=== PATIENT | female | born 1945 | race Caucasian/White ===

== ENCOUNTER 2016-03-21 11:39 | Inpatient (IN) | payer MEDICARE, OTHER ==
--- NOTE | ~2016-03-21 | CON ---
PATIENT'S NAME: NORMA PAEZ [facility] AGE: 70 Y [address] ROOM: [id number] [place], [place] [address] LOCATION: GICU ADMIT DATE: 03/21/2016 Consultation DISCHARGE DATE: FAMILY PHYSICIAN: OLGA ELISE MD ATTENDING PHYSICIAN: FREDI CLEMONS DATE OF CONSULTATION: 03/24/2016 REFERRING PHYSICIAN: SHARON MANTILLA REFERRING PHYSICIAN: Fredi Clemons MD REASON FOR CONSULTATION: Sepsis and sacral coccyx wound. HISTORY OF PRESENT ILLNESS: This is a 70-year-old lady with ESRD, on peritoneal dialysis, who presented with sacral wound and pain and bilateral lower extremity bullous lesions. The patient recently started on Requip and tramadol, and after that, she started to have some bilateral ankle area bullous lesion. Also, recently noted to have increased drainage and odor from the coccyx wound which has been there for several months. The patient came to the ER and admitted for further management and treatment. Culture from the wound grew Clostridium, diphtheroid, and also Peptostreptococcus, and blood culture 1/2 on March 21 positive with anaerobic gram-positive cocci. Started on broad-spectrum antibiotic and currently narrowed to IV Unasyn. ID consultation requested for antibiotic management. The patient denied any fever or chills. No cough or cough up of mucus. No chest pain. No abdominal pain. Complained of some coccyx wound pain and also both lower extremity pain too around the bullous area. It was noted that the patient had peritoneal aspiration, and white blood cell count is only 26. Culture negative. Also, some of the bullous lesions were aspirated, and culture was negative. Repeat blood culture done today has been pending. Noted the patient is still on Levophed, but only a very small dose at this point. PAST MEDICAL HISTORY: Coronary artery disease; pacemaker; atrial fibrillation; hypertension; hyperlipidemia; ESRD, on peritoneal dialysis; diabetes; and recent sacral wound. PAST SURGICAL HISTORY: Appendectomy, cholecystectomy, and pacemaker placement. SOCIAL HISTORY: Denies smoking. ALLERGIES: PATIENT'S NAME: NORMA PAEZ [facility] AGE: 70 Y [address] ROOM: [id number] [place], [place] [address] LOCATION: GICU ADMIT DATE: 03/21/2016 Consultation DISCHARGE DATE: FAMILY PHYSICIAN: OLGA ELISE MD ATTENDING PHYSICIAN: FREDI CLEMONS NO KNOWN DRUG ALLERGIES. FAMILY HISTORY: Negative for heart disease or cancer. ANTIBIOTICS: Currently, on IV Unasyn, but used to be on clindamycin, vancomycin, meropenem, and gentamicin. REVIEW OF SYSTEMS: As above. PHYSICAL EXAMINATION: VITAL SIGNS: Blood pressure 96/46, pulse rate 69, respirations 17, temperature 97.9, T-max 99.6. Still on Levophed, but very minimal amount. GENERAL: In mild distress. HEENT: Conjunctivae pink. Sclerae not icteric. NECK: Supple. RESPIRATORY: Lung sounds clear to auscultation bilaterally. HEART: Regular rhythm and rate. ABDOMEN: Bowel sounds positive. No tenderness or rebound tenderness. BACK AND EXTREMITIES: Both lower legs have several bullous lesions. Some of them were popped up and aspirated. Minimal surrounding erythema noted. Also, wound on the right coccyx area. It is about 3 to 4 cm with tunneling, but no odor. No purulence. Wound looks clean, and no bone exposed. LABORATORY DATA: White blood cells 11.7, hemoglobin 9.0, and platelet 181. Peritoneal fluid white blood cell is 26. BUN 80 and creatinine 7.2. CRP done on March 21 was 15. ESR done on March 21 was 103. On March 18, buttock culture grew Clostridium paraputrificum and also Peptostreptococcus species and diphtheroids. On March 21, blood culture, 2 sets, 1 out of 2 grew anaerobic gram-positive cocci growing. On March 23, peritoneal dialysis fluid culture negative. On March 23, right ankle bulla aspirate culture is no growth. On March 24, blood culture, one set, pending. On March 22, CT pelvis showed increased attenuation in the posterior subcutaneous tissue at the area of the inferior aspect of the sacrum and coccyx with an associated tiny gas collection. Appearance could reflect infectious or inflammatory changes in the subcutaneous tissues. Small gas collection could be also with subcutaneous infection or wound involving the skin and subcutaneous tissue. No bone erosion in the sacrum or coccyx to indicate osteomyelitis. ASSESSMENT: This is a 70-year-old lady with end-stage renal disease, on peritoneal PATIENT'S NAME: NORMA PAEZ [facility] AGE: 70 Y [address] ROOM: [address] [address] LOCATION: GICU ADMIT DATE: 03/21/2016 Consultation DISCHARGE DATE: FAMILY PHYSICIAN: OLGA ELISE MD ATTENDING PHYSICIAN: FREDI CLEMONS, who presented with acute sepsis and also coccyx wound infection and also both lower legs bullous lesions. Note the dermatology recommendation, they suspect that this might be bullous impetigo, and some of the bullae were aspirated, and aspiration culture negative. The patient is improving clinically and currently on IV Unasyn 3 g q.24 hours. Repeat blood culture ordered today and pending. Wound looks actually clean, although it is deep. No bone exposure. CT reviewed. RECOMMENDATIONS: Would like to continue IV Unasyn 3 g q.24 hours through April 06, 2016, if today's blood culture turned out negative. Okay to place PICC line if blood culture repeated today is negative on March 26, 2016, which is after 48 hours if intelligence analyst agrees. Would like to follow up with ID clinic in 2 weeks. MD DOMINIQUE HAIR/fernando /[id number] d: 03/24/16 1530 t: 03/25/16 1120, CONSULTATION REPORT
--- NOTE | ~2016-03-21 | ER ---
PATIENT'S NAME: NORMA PAEZ [facility] AGE: 70 Y [address] ROOM: [address] [address] LOCATION: [facility] ADMIT DATE: 03/21/2016 ER/Outpatient Report DISCHARGE DATE: FAMILY PHYSICIAN: OLGA ELISE MD ATTENDING PHYSICIAN: LEANDRA CLEMONS Time of Arrival: 1139 hours. Time of Evaluation: 1200 hours. IDENTIFICATION: A 70-year-old female. CHIEF COMPLAINT: Bilateral leg pain. HISTORY OF PRESENT ILLNESS: The patient checked in with bilateral leg pain. When she is brought back, she is talking about pain from a wound on her sacrum that she has had for several months that is not controlled with pain medicine and then she has some new lesions on her lower extremities with a large blistered area just above her medial malleolus on the right side and on her posterior left calf. She has had no fever, chills, although she says her temperature is elevated for her at 98. She says she normally runs 96. Her blood pressure is 97 systolic, but she states that, that is also fairly normal for her, that she runs between 95 and 100 normally. She denies chest pain. She denies lightheadedness or dizziness, but she does have some generalized weakness. Normally, she is able to get up and around on her own and ambulate. Today, she is needing assistance. CURRENT MEDICATIONS: 1. Allopurinol 300 mg daily. 2. Glimepiride 4 mg daily. 3. Metoprolol 20 mg 1/2 tab b.i.d. 4. Primidone 50 mg q.a.m. 5. Eliquis 5 mg half tablet b.i.d. 6. Atorvastatin 20 mg daily. 7. Gabapentin 300 mg at h.s. 8. Calcium 3 times a day with meals. 9. Potassium 20 mEq daily. 10. Bumex 1 mg daily. 11. Probiotic daily. 12. Colace. 13. Vitamins. 14. Ropinirole 0.25 mg t.i.d. for restless legs, just started on tramadol, just started 250 mg tabs q.12 hours. ALLERGIES: PATIENT'S NAME: NORMA PAEZ [facility] AGE: 70 Y [address] ROOM: [address] [address] LOCATION: [facility] ADMIT DATE: 03/21/2016 ER/Outpatient Report DISCHARGE DATE: FAMILY PHYSICIAN: OLGA ELISE MD ATTENDING PHYSICIAN: LEANDRA CLEMONS AND CHRISTEN. PAST MEDICAL HISTORY: MEDICAL PROBLEMS: Gout, diabetes mellitus, essential tremors, hyperlipidemia, atrial fibrillation, chronic kidney failure on peritoneal dialysis, chronic diastolic congestive heart failure, obstructive sleep apnea, coronary artery disease status post PCI of the LAD in 2009. Sick sinus syndrome status post pacemaker, which is a [employer] pacemaker. PRIOR SURGERIES: Liver biopsy, paracentesis, ovary and omental biopsy, appendectomy, cholecystectomy, colonoscopy, pacemaker, peritoneal dialysis catheter. SOCIAL HISTORY: The patient is , lives here in [place]. Tobacco use, denies. Alcohol use, denies. Drug use, denies. FAMILY HISTORY: No family history of premature coronary artery disease. ROS: All systems reviewed and negative other than what is noted in the HPI. PHYSICAL EXAMINATION: VITAL SIGNS: Weight 78.9 kg, blood pressure 97/68, pulse 70, respirations 18, temperature 97, saturations 92% on room air. When lying on her side, she had sats of 88%-89%, so was placed on O2 at 2 L per nasal cannula. HEENT: Normocephalic, atraumatic. Eyes: Pupils are equal and reactive to light and accommodation. Extraocular movements intact. Ears: TMs are translucent. Nose: Mucosa pink. No lesions. Mouth: No lesions. Pharynx benign. NECK: Supple. No lymphadenopathy. No thyromegaly. LUNGS: Clear to auscultation. HEART: Regular rate and rhythm. No murmur, rub, or gallop. ABDOMEN: Bowel sounds present. Soft, nondistended. No hepatosplenomegaly. No palpable masses. Nontender. The patient has a peritoneal dialysis catheter in her left abdomen, no surrounding erythema, nontender. SKIN: [place], warm, and dry. The patient has a large bullous lesion just above the medial malleolus on the right leg. She also has a blistered area on her right heel that is covered. She has a large bullous lesion, posterior calf, left leg. She has a wound just at the top of her gluteal fold that has an open area measuring approximately 3 mm with minimal scant serosanguineous drainage, but is foul smelling. No surrounding erythema. She does have PATIENT'S NAME: NORMA PAEZ [facility] AGE: 70 Y [address] ROOM: [id number] [place], [place] [address] LOCATION: [facility] ADMIT DATE: 03/21/2016 ER/Outpatient Report DISCHARGE DATE: FAMILY PHYSICIAN: OLGA ELISE MD ATTENDING PHYSICIAN: LEANDRA CLEMONS tenderness in this area. EXTREMITIES: 2+ edema. No calf tenderness. NEURO: The patient is alert and oriented x4. Cranial nerves 2 through 12 grossly intact. Motor strength 5/5 throughout. Sensation is intact to light touch. LABORATORY DATA AND X-RAYS: One-view chest x-ray, cardiomegaly. Left-sided pacemaker, no acute findings. Pending radiology over-read. An IV was initiated. Normal saline at 100 mL/h. The patient does not meet sepsis criteria. EKG: Paced rhythm at 69 beats per minute. Lactate 1.1. Sodium 137, potassium 4.5, chloride 95, CO2 26, BUN 82, creatinine 8, blood sugar 94. Albumin low at 2.3. Liver enzymes normal. CPK 314, CK-MB 2.7. Troponin I 0.106. CRP elevated at 15. Sedimentation rate elevated at 103, hemoglobin 10.1, hematocrit 32, and platelets 188, white count 13.6 with 83% neutrophils. Procalcitonin 0[place]98[place] [address]. IMPRESSION AND PLAN: 1. Bullous skin lesions, possibly secondary to tramadol. 2. Sacral wound with increase in pain. 3. Hypotension. The patient was given gentle fluids in the ER with improvement of her blood pressure to 107/65. Dr. Clemons was consulted, evaluated the patient in the emergency room, and planned for admission. 4. End-stage renal disease, on peritoneal dialysis. 5. Congestive heart failure with significantly elevated proBNP and increase in edema. EMERGENCY DEPARTMENT COURSE: DISPOSITION/FOLLOW-UP: 40 minutes of critical care was provided in the emergency room and the patient was taken to ICU in stable condition. The blood pressure of 104/59, heart rate of 68, sats of 96% on 2 L per nasal cannula. Normal saline at 100 mL/h and the patient had received Levaquin at 750 mg IV. Blood cultures have been drawn and those results are pending. Urine was not obtained as since yesterday she has not been making any urine. MARY RODRIGUEZ MD CAR/modl PATIENT'S NAME: NORMA PAEZ [facility] AGE: 70 Y [address] ROOM: [place] [address] LOCATION: [facility] ADMIT DATE: 03/21/2016 ER/Outpatient Report DISCHARGE DATE: FAMILY PHYSICIAN: OLGA ELISE MD ATTENDING PHYSICIAN: LEANDRA CLEMONS /[id number] d: 03/21/169 t: 03/22/16 0740, OUTPATIENT REPORT
--- NOTE | ~2016-03-21 | HP ---
PATIENT'S NAME: NORMA PAEZ [facility] AGE: 70 Y [address] ROOM: [address] [address] LOCATION: [facility] ADMIT DATE: 03/21/2016 History & Physical DISCHARGE DATE: FAMILY PHYSICIAN: OLGA ELISE MD ATTENDING PHYSICIAN: LEANDRA CLEMONS PRIMARY CARE PHYSICIAN: Dr. Elise. CHIEF COMPLAINT: Bilateral lower extremity bullae lesions and pain, sacral wound and pain. HISTORY OF PRESENT ILLNESS: This is a 70-year-old female with a history of end-stage renal disease, on peritoneal dialysis. The patient states that around the end of December, she was at an event and tried to sit. She then developed a sacral wound by something that hit her in her back. The patient has been following up with the wound care over the past couple of months. The patient's states that the patient has had some drainage from the sacral wound for the past few days that is also increasingly foul smelling now. The patient is able to ambulate. Currently, she states she undergoes peritoneal dialysis currently for end-stage renal disease. She complains of increasing pain in her buttocks around the sacral area. Currently, rates her pain as 7-10 on intensity. She was seen for an increasing pain by her primary care physician. Dr. Elise placed her on Requip and also on tramadol. She just had a couple of doses of tramadol and Requip and now has bullae lesions on her bilateral lower extremity around her ankles. This is likely secondary to tramadol use. The patient also complains of pain in her bilateral lower extremity. Denies seeing any other lesions at this point of time. At the time of my examination in the ER, the patient denies any chest pain or shortness of breath. Denies any head trauma or loss of consciousness. Denies headache. No fever history reported. She complains of pain in her sacral area and bilateral lower extremity. No other pain reported. No abdominal pain, diarrhea, or constipation reported. She has been undergoing her peritoneal dialysis regularly at home. Denies any other complaints at this point of time. REVIEW OF SYSTEMS: A 10-point review of systems done and was otherwise negative except as mentioned above. FAMILY HISTORY: No history of heart disease or cancer reported. PAST SURGICAL HISTORY: 1. Appendectomy. PATIENT'S NAME: PHILIPPE, NORMA [facility] AGE: 70 Y [address] ROOM: [place] [address] LOCATION: GICU ADMIT DATE: 03/21/2016 History & Physical DISCHARGE DATE: FAMILY PHYSICIAN: OLGA ELISE MD ATTENDING PHYSICIAN: LEANDRA CLEMONS 2. Cholecystectomy. 3. Pacemaker placement. 4. Heart catheterization with stent in 2009. 5. Right wrist surgery. 6. Cataract surgery. 7. Tunneled dialysis catheter. 8. Recent peritoneal dialysis catheter. PAST MEDICAL HISTORY: 1. Coronary artery disease, status post stent. 2. CHF. 3. Pacemaker placement. 4. Atrial fibrillation. 5. Long-term anticoagulation. 6. Dyslipidemia. 7. Hypertension. 8. Obstructive sleep apnea. 9. Grade 3 diastolic dysfunction. 10. Pulmonary hypertension. 11. History of pancreatitis secondary to diabetes mellitus medication. 12. Diabetes mellitus. 13. Sacral wound recently. 14. End-stage renal disease, on peritoneal dialysis. 15. Depression and anxiety. 16. Restless legs syndrome. HOME MEDICATIONS: Per MAR. SOCIAL HISTORY: Denies smoking or alcohol use. She currently lives at home with her . ALLERGIES: NONE REPORTED. PRADAXA AND JANUVIA. PHYSICAL EXAMINATION: VITAL SIGNS: Temperature 97.0, pulse 70 and regular, respirations 18, blood pressure 97/68, and saturation 92% on room air. GENERAL: The patient is alert and oriented x3. Answers all questions appropriately. In no acute distress. HEENT: Head: Normocephalic, atraumatic. Pupils equal, round, reactive to light. Extraocular muscles intact. Nares clear. Throat clear. Mucous membranes dry. NECK: Supple. No nuchal rigidity. HEART: Regular rate and rhythm. PATIENT'S NAME: NORMA PAEZ [facility] AGE: 70 Y [address] ROOM: [place] [address] LOCATION: GICU ADMIT DATE: 03/21/2016 History & Physical DISCHARGE DATE: FAMILY PHYSICIAN: OLGA ELISE MD ATTENDING PHYSICIAN: LEANDRA CLEMONS LUNGS: Clear to auscultation bilaterally. ABDOMEN: Soft, nontender, and nondistended. Bowel sounds are present. PD catheter noted. Area around the PD catheter appears clean with no redness noted. EXTREMITIES: No clubbing, cyanosis, or edema noted. The patient has 2 bullae- like lesions that measure approximately 5 x 5 cm on the right and 3 x 5 cm on the left. The bullae appeared to be fluid filled. No drainage noted. No breaking noted. The area around the bullae appears to be slightly red. These are around the ankles and the lower part of the leg. Only 2 lesions noted currently. Vascular pulses 2+ distally bilaterally. NEUROLOGIC: The patient is alert and oriented x3. Cranial nerves 2 through 12 are grossly intact. Follows all commands. Moves all extremities. Gait not assessed. SKIN: As noted above. Also noted on the skin in the sacral area is a pinpoint lesion that appears to be draining a slightly red area noted in between the gluteal fold. At the top of the gluteal fold, no pus noted. DIAGNOSTIC STUDIES: Lactate 1.1. CPK 314, troponin I 0.106, proBNP 08999. CBC showed a white count of 13.6, hemoglobin 10.2, hematocrit 32.0, and platelets 188. CMP showed sodium 137, potassium 4.5, chloride 95, bicarb 26, BUN 82, creatinine 8.2, glucose 94, calcium 9.1, total protein 7.2, albumin 2.3. AST 93, ALT 86. Alkaline phosphatase 181, total bilirubin 0.4, anion gap 20.5, globulin 4.9. GFR 5. ESR 103. PT 11.2, INR 1.1, PTT 32. CK-MB 2.7. CRP 15.0. Procalcitonin level 0.98. Chest x-ray showed no acute cardiopulmonary abnormality, improved cardiomegaly and changes of pulmonary venous hypertension. Suspect small bilateral pleural effusions probably unchanged, left-sided pacemaker stable. Blood cultures are drawn and are pending at this point of time. ASSESSMENT AND PLAN: A 70-year-old female presenting with sacral ulcer. 1. Sacral ulcer. The area appears to be suspicious to be the cause of sepsis. The patient has increased pain in the area with some drainage. A [facility] consult will be obtained for the patient. I will place her on broad-spectrum antibiotics. Currently, we will obtain blood cultures and tailor antibiotics once cultures are obtained. 2. Bullous lesions on bilateral lower extremities. The patient has two bullous lesions around her ankle in bilateral lower extremities. They are painful but not draining currently. We will observe very closely. Highly suspicious for Cooper-Sb syndrome versus toxic epidermal necrolysis if the lesions spread. I will place her on antibiotics currently. We will consider steroids if the lesions spread. Benadryl to be given. Discontinue Requip and tramadol, likely secondary to tramadol. 3. End-stage renal disease, on peritoneal dialysis. The patient will PATIENT'S NAME: NORMA PAEZ [facility] AGE: 70 Y [address] ROOM: [address] [address] LOCATION: [facility] ADMIT DATE: 03/21/2016 History & Physical DISCHARGE DATE: FAMILY PHYSICIAN: OLGA ELISE MD ATTENDING PHYSICIAN: LEANDRA CLEMONS undergo peritoneal dialysis per Renal recommendations. 4. Severe sepsis. Concern for severe sepsis. The patient will be placed on antibiotics. She will be placed in the ICU. Her blood pressure is slightly on the lower side. I will hydrate with IV fluids currently. We will initiate pressor therapy if her MAP is less than 65. 5. Diabetes mellitus. Sliding scale insulin for now. 6. Atrial fibrillation status post permanent pacemaker, currently rate controlled. 7. Long-term anticoagulation. The patient reports she is on Eliquis. Continue Eliquis as per home regimen. 8. Deep vein thrombosis prophylaxis. The patient is on long-term anticoagulation. 9. History of coronary artery disease status post stent, stable. 10. Hypertension. The patient is currently hypotensive. Hold blood pressure medication. 11. Dyslipidemia. Continue statin. 12. Code status. Full code. Discussed with the patient at time of admission. 13. Obstructive sleep apnea, on CPAP. Continue per home regimen. 14. Pulmonary hypertension history. LEANDRA CLEMONS MD MT/hoal /[id number] D: 052 T: 216 HISTORY & PHYSICAL
--- NOTE | ~2016-03-21 | CON ---
PATIENT'S NAME: NORMA PAEZ [facility] AGE: 70 Y [address] ROOM: [id number] [place], [place] [address] LOCATION: GICU ADMIT DATE: 03/21/2016 Consultation DISCHARGE DATE: FAMILY PHYSICIAN: OLGA ELISE MD ATTENDING PHYSICIAN: LEANDRA CLEMONS DATE OF CONSULTATION: 03/22/2016 REFERRING PHYSICIAN: SHARON MANTILLA REASON FOR CONSULTATION: End-stage renal disease, on peritoneal dialysis. HISTORY OF PRESENT ILLNESS: A 70-year-old female with history of end-stage renal disease, currently on peritoneal dialysis, admitted with possible sepsis secondary to sacral decubitus. Nephrologic consult has been called for management of chronic dialysis. Primary disease is known to be vascular disease versus cardiorenal syndrome type 2. She had a long history of congestive heart failure with multiple admissions with decompensated heart failure, being managed with IV diuretic. In October 2015, she had her peritoneal dialysis catheter placed and subsequently was started on peritoneal dialysis. Her peritoneal dialysis regime currently at this point is 4 cycles over 8 hours with 2 L of dwell volume with no last fill. She generally uses a mixture of 2.5 and 4.25% dextrose solution to get good ultrafiltrate. The patient's stays with her, and he is the primary caregiver; however, recently, he has noticed that the patient has some drainage from the sacral wound which is becoming increasingly foul smelling. The patient is able to ambulate; however, with that significant pain, the patient is not able to tolerate and can walk. Currently, she rates her pain at 7/10 in intensity, mostly in the buttock and in the sacral area. She was recently started on tramadol by her primary care provider which, after a few days, she has noticed some blisters in the bilateral lower extremities around the ankle region. She denied any other rash. No itching. When she arrived in the ER, she had a marginally low blood pressure with systolic being in the 80 to 90 range. She was transferred to ICU with gentle intravascular volume expansion, and the blood pressure at this time is in the 130 range; however, she still appears to be slightly on her dry side with dry mucous membranes, flat JVD, and an absence of any dependent edema. REVIEW OF SYSTEMS: GENERAL: Complains of occasional fever, chills, and rigor. HEENT: No sore throat. No sinus congestion. CARDIOVASCULAR: No chest pain. No exertional shortness of breath. No leg swelling. RESPIRATORY: No shortness of breath. No cough. No wheezing. PATIENT'S NAME: NORMA PAEZ [facility] AGE: 70 Y [address] ROOM: [place] [id number] LOCATION: GICU ADMIT DATE: 03/21/2016 Consultation DISCHARGE DATE: FAMILY PHYSICIAN: OLGA ELISE MD ATTENDING PHYSICIAN: LEANDRA CLEMONS GENITOURINARY: No pain with urination or increased frequency or nocturia. GASTROINTESTINAL: No abdominal pain. No abdominal distention. No nausea or vomiting. NEUROLOGIC: No weakness or seizures. SKIN: No rash. No itching. However, as described above, the patient has a significant sacral wound which is foul smelling and draining. The patient also has some blisters around the ankle area after she was started on tramadol. ALLERGIC: No seasonal allergy. No hay fever. ENDOCRINE: No heat or cold intolerance. PSYCHIATRIC: No sadness. No crying spells. No history of panic attacks. PAST MEDICAL HISTORY: 1. 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 2. Coronary artery disease, status post stenting. 3. Diastolic heart failure. 4. Status post permanent pacemaker implantation. 5. Atrial fibrillation. 6. Long-term anticoagulation. 7. Dyslipidemia. 8. Hypertension. 9. Obstructive sleep apnea. 10. Pulmonary hypertension. 11. History of pancreatitis secondary to diabetes mellitus medications. 12. Recent sacral wound. 13. Depression and anxiety. 14. Restless legs syndrome, currently on Requip. PAST SURGICAL HISTORY: 1. Appendectomy. 2. Cholecystectomy. 3. Pacemaker placement. 4. Cardiac catheterization with stenting in 2009. 5. Right wrist surgery. 6. Cataract surgery. 7. Tunneled dialysis catheter placement. 8. Recent peritoneal dialysis catheter placement in October 2015. FAMILY HISTORY: No history of CKD or coronary artery disease in the family. No history of cancer. SOCIAL HISTORY: Denies any smoking, alcohol, or IV drug use. She currently lives at home with her . PATIENT'S NAME: NORMA PAEZ [facility] AGE: 70 Y [address] ROOM: [address] [address] LOCATION: [facility] ADMIT DATE: 03/21/2016 Consultation DISCHARGE DATE: FAMILY PHYSICIAN: OLGA ELISE MD ATTENDING PHYSICIAN: LEANDRA CLEMONS ALLERGIES: NONE REPORTED; HOWEVER, THE PATIENT WAS ON PRADAXA AND JANUVIA WHICH CAUSED SOME SIGNIFICANT SYMPTOMS. THE PATIENT WAS ALSO STARTED ON TRAMADOL EARLIER RESULTING IN SOME BLISTERS ON THE BILATERAL ANKLES. PHYSICAL EXAMINATION: VITAL SIGNS: Blood pressure 132/76, pulse 70 and irregular, temperature 97, respiratory rate 18, saturation 93% to 95% on room air. GENERAL: Elderly lady, lying in bed, in no apparent distress. HEAD: Dry mucous membranes. Bilateral PERRLA, EOMI. NECK: Flat JVP. No thyromegaly. No lymphadenopathy. CARDIOVASCULAR: S1 and S2 normal, regular. No murmur, rub, or gallop. CHEST: Bilateral air entry equal. No wheeze or rales. ABDOMEN: Soft, nontender, and nondistended. Bowel sounds present. EXTREMITIES: No cyanosis or clubbing. No dependent edema. There is a sacral area covered with bandage. Sacral decubitus wound. MUSCULOSKELETAL: Pain while walking which she rates about 7/10 in intensity. SKIN: No pallor. No cyanosis. No icterus. However, the patient has sacral edema which has been as described above. CENTRAL NERVOUS SYSTEM: Alert and oriented x3. No gross focal neurological deficit. DIAGNOSTIC STUDIES: Lactate 1.2. CPK 314. Troponin 0.106. CBC: WBC 10.4, hemoglobin 9.3, hematocrit 29.6, and platelets 162. Chemistry: Sodium 141, potassium 4.5, chloride 102, bicarbonate 31, BUN 97, creatinine 8.3, glucose 47, and calcium 8.3. Total protein and albumin of 10.8 and 2.3. ASSESSMENT AND PLAN: 1. End-stage renal disease, on peritoneal dialysis. Primary disease vascular disease versus CRS type 2. Started on peritoneal dialysis since October 2015. Tolerating peritoneal dialysis well. The patient is being taken care of by her . Currently undergoing 4 cycles over 8 hours with a mixture of 2.5 and 4.25% dextrose solution. We will continue his home regimen except we will change the fluid to all 2.5% to decrease the ultrafiltrate, especially in the context of sepsis with hypotension. 2. Severe sepsis secondary to sacral ulcer with significantly increased pain with some drainage, currently on broad-spectrum antibiotic, and blood cultures are pending. 3. Bullous lesions on the bilateral lower extremities, possibly secondary to tramadol. Currently, not draining. Please discontinue the medications, and we will closely monitor. 4. Diabetes mellitus, on sliding scale insulin. 5. Atrial fibrillation, status post permanent pacemaker implantation. PATIENT'S NAME: NORMA PAEZ [facility] AGE: 70 Y [address] ROOM: [id number] [place], [place] [address] LOCATION: [facility] ADMIT DATE: 03/21/2016 Consultation DISCHARGE DATE: FAMILY PHYSICIAN: OLGA ELISE MD ATTENDING PHYSICIAN: LEANDRA CLEMONS Currently, rate controlled. 6. Long-term anticoagulation. Currently, on Eliquis. 7. Deep venous thrombosis, on long-term anticoagulation. 8. Coronary artery disease, status post stenting; stable. 9. Hypertension. Currently, hypotensive. Hold blood pressure medications for now. Thank you for allowing me to participate in this patient's care. We will closely monitor the patient's progress along with you. SHARON MANTILLA MD /modl /[id number] d: 03/22/16 1633 t: 03/30/16 163, CONSULTATION REPORT
--- NOTE | ~2016-03-21 | DS ---
PATIENT'S NAME: NORMA PAEZ [facility] AGE: 70 Y [address] ROOM: [id number] [place], [place] [address] LOCATION: GPCU ADMIT DATE: 03/21/2016 Discharge Summary DISCHARGE DATE: 03/30/2016 FAMILY PHYSICIAN: Julio Cesar MD ATTENDING PHYSICIAN: Fredi Garcia PRINCIPAL DIAGNOSES: 1. Septic shock secondary to gram-positive bacteremia. 2. Sacral decubitus ulcer. 3. Lower extremity bullous lesions. 4. End-stage renal disease, on peritoneal dialysis. 5. Coronary artery disease, atrial fibrillation, status post pacemaker. 6. Diabetes. BRIEF HOSPITAL COURSE: This is a 70-year-old lady with history of end-stage renal disease, on peritoneal dialysis, who presented with a sacral wound and pain in the bilateral lower extremities with bullous erosions and lesions and was admitted for septic shock and subsequently had grown a gram-positive organism of Peptostreptococcus species. The patient was treated with IV Unasyn, dose adjusted renally. During hospitalization, she was treated for septic shock overall and had a brief ICU stay, and after she did better was transferred over to the floor, and the patient continues to do well right now. The focus now is to continue her antibiotic course and Streptococcus species tends to be pansensitive to penicillins as well as clindamycin. ID consultation was obtained as well, and they have recommended to continue Unasyn initially. At this point, since the patient has done very well on current regimen, I will discharge the patient on some more days of oral clindamycin, and she is to follow up with primary care physician as well as Wound Care and ID within the next 1 to 2 weeks and clear instructions have been given. DISCHARGE PHYSICAL EXAMINATION: GENERAL: The patient today is awake, alert, and oriented x3, good spirit. CHEST: Clear to auscultation bilaterally. HEART: S1, S2. Regular rate and rhythm. ABDOMEN: Soft, nontender, and nondistended. SKIN: Healing bilateral lower extremity bullous lesions and also sacral ulcer with a clean base and good granulation tissue around it. DISPOSITION: The patient is being discharged in stable condition to home and is to continue to give care to patient and he seems to be doing a good job with that. The patient will be discharged home and will follow up with PCP in 1 to 2 weeks. Greater than 30 minutes were spent in discharge planning. PATIENT'S NAME: NORMA PAEZ [facility] AGE: 70 Y [address] ROOM: [id number] [place], [place] [address] LOCATION: [facility] ADMIT DATE: 03/21/2016 Discharge Summary DISCHARGE DATE: 03/30/2016 FAMILY PHYSICIAN: Julio Cesar MD ATTENDING PHYSICIAN: Fredi Garcia JACIELOT MD MCKAY TAI/fernando /[id number] d: 03/31/16 0235 t: 03/31/16 1726, DISCHARGE SUMMARY
[~2016-03-21 11:39] MED LIST: AMARYL4 M1 PO; AMARYL4 MG PO; ASPIRIN LO-DOSE81 MG PO; ATORVASTATIN CA20 MG PO; B COMPLETE1 EACH PO; BENADRYL A12.5 MG/5 PO; BUMETANIDE2 MG PO; BUMEX1 MG IV; BUMEX1 MG PO; Bumex IVP; COLACE100 MG PO; CPAP INH; DEMADEX20 M1 PO; ELIQUIS5 MG PO; FLORASTOR250 MG PO; K-TAB ER20 MEQ PO; LIDOCAINE IDER; LIPITOR20 M1 PO; LISINOPRIL2.5 MG PO; LOPRESSOR12.5 MG/0. PO; LOPRESSOR25 MG PO; MIRALAX17 GM PO; MYSOLINE50 MG PO; NEURONTIN300 MG PO; NORCO 5-325 MG1 TAB PO; NORVASC10 MG PO; PAXIL20 MG PO; PERCOCET 5-3251 EACH PO; PHOSLO667 MG PO; PREMARIN VAG30 GM VAG; PROBIOTIC1 EAC1 PO; PROTONIX20 MG PO; THERA-VITE W/ B1 TAB PO; TYLENOL EXTRA500 MG PO; TYLENOL325 MG PO; ZAROXOLYN5 MG PO; ZESTRIL2.5 MG PO; ZOFRAN4 MG PO; ZYLOPRIM PO; ZYLOPRIM300 MG PO
[2016-03-21 12:38] LABS: BASOPHIL % 0.2 %; EOSINOPHIL # 0.1 K/uL (0.0-0.5); HEMOGLOBIN 10.1 g/dL (10.0-15.0); IMMATURE GRANULOCYTE # 0.1 K/uL (0.0-0.3); IMMATURE GRANULOCYTE % 0.4 %; LYMPHOCYTE # 1.1 K/uL (0.8-4.0); LYMPHOCYTE % 7.7 %; MCH 30.9 pg (27.0-34.0); MCHC 31.6 gm/dL (32.0-36.5); MCV 97.9 fl (83.0-98.0); MPV 11.3 fl (9.4-12.4); NEUTROPHIL # (ANC) 11.4 K/uL (1.8-7.8); NEUTROPHIL % 83.7 %; NRBC % 0 /100WBC (0-0.00); PLATELET COUNT 188 K/uL (150-450); RBC 3.27 M/uL (3.50-5.50); RDW-CV 16.4 % (11.9-14.6); WBC 13.6 K/uL (4.0-11.0)
[2016-03-21 12:47] LABS: INR - (THERAPEUTIC) 1.1 (0.9-1.1); PROTIME 11.2 SECONDS (9.6-11.1); PTT 32 SECONDS (25-32)
[2016-03-21 12:59] LABS: ALBUMIN 2.3 gm/dL (3.5-5.0); ANION GAP 20.5 (10.0-19.0); CALCIUM 9.1 mg/dL (8.5-10.5); POTASSIUM 4.5 mMol/L (3.7-5.1); TOTAL BILIRUBIN 0.4 mg/dL (0.0-1.5); TOTAL PROTEIN 7.2 g/dL (6.0-8.4)
[2016-03-21] MEDS ORDERED: ROPINIROLE HC0.25 MG PO (15:47)
[2016-03-21] MEDS ORDERED: ULTRAM50 MG PO (15:47)
--- NOTE | 2016-03-21 16:22 | NUR ---
Significant Event: Alert and oriented x3. Follows commands. Moves all extremities. PERRLA. Pacemaker. Generalized edema. Afebrile. Levaquin, Zosyn, Daptomycin started. 1L NC. Blister to BIlateral lower extremities intact. Pressure ulcer to coccyx WOC following patient. R) hand and L) AC Iv infusing Antibiotics and NS. Peritoneal dialysis catheter intact, oliguria. Family at bedside. AC/Hs accuchecks. Follow up: monitor.
--- NOTE | 2016-03-21 22:14 | NUR ---
Significant Event: Neurologically intact. VSS. 1L NC. Clear and dim. Hypoactive. No BM. Has not voided. 3x blisters still intact to lower extremities. Handed off to Sugey FERGUSON at 2200 Follow up: Monitor BP
--- NOTE | 2016-03-22 05:44 | NUR ---
Significant Event: AOx3. Afib, paced, BP stable SBP within goal of >90. Afebrile, edema noted. Currently on CPAP with 2L o2. Lung sounds clear and diminished throughout. Bowel sounds present, patient states decreased appetite, no bm this shift. No UOP this shift MDs aware, patient receives peritoneal dialysis for end stage renal disease. No new blister formations. Follow up: Transfer. Notify MD for new blister formation.
[2016-03-22 06:08] LABS: BASOPHIL % 0.3 %; EOSINOPHIL # 0.1 K/uL (0.0-0.5); EOSINOPHIL % 1.1 %; HEMATOCRIT 29.6 % (33.0-46.0); HEMOGLOBIN 9.3 g/dL (10.0-15.0); IMMATURE GRANULOCYTE # 0.1 K/uL (0.0-0.3); IMMATURE GRANULOCYTE % 0.5 %; LYMPHOCYTE # 0.9 K/uL (0.8-4.0); LYMPHOCYTE % 8.4 %; MCH 30.9 pg (27.0-34.0); MCHC 31.4 gm/dL (32.0-36.5); MCV 98.3 fl (83.0-98.0); MONOCYTE # 0.8 K/uL (0.0-1.0); MONOCYTE % 7.2 %; MPV 11.2 fl (9.4-12.4); NEUTROPHIL # (ANC) 8.7 K/uL (1.8-7.8); NEUTROPHIL % 82.5 %; NRBC % 0 /100WBC (0-0.00); PLATELET COUNT 162 K/uL (150-450); RBC 3.01 M/uL (3.50-5.50); RDW-CV 16.1 % (11.9-14.6); WBC 10.5 K/uL (4.0-11.0)
[2016-03-22 06:24] LABS: ANION GAP 22.5 (10.0-19.0); CALCIUM 8.3 mg/dL (8.5-10.5)
[2016-03-22 06:25] LABS: CREATININE 8.3 mg/dL (0.5-1.1); POTASSIUM 4.5 mMol/L (3.7-5.1)
[2016-03-22] MEDS ORDERED: PHOSLO667 MG PO (11:38)
[2016-03-22] MEDS ORDERED: TRIPHROCAPS SOFT1 MG PO (11:38)
--- NOTE | 2016-03-22 16:02 | NUR ---
PT FOLLOWS A RENAL DIET AT HOME.
--- NOTE | 2016-03-22 18:37 | NUR ---
Significant Event:A/O X 3. Ambulates with 1 assist, and gait belt, up to BSC and chair. [facility] [place] Pacer with HR in the 70's. Copy of pacer card in the chart. SBP 90's to 110's. O2 sats > 90% while awake but desats when sleeping, using cpap when napping or sleeping, has own in the room. Poor appetite, eats applesauce and glucerna. Blood sugar at 0700 was 63, treated with D50. 1100 BS was 73 and 1700 BS was 83. Encouraged to eat or at least complete a can of Glucerna now and 1 more at bedtime. NO BM this stay. "I feel so bloated. I haven't urinated since 03/20/16. Can we do something about it?" Bladder scanned for > 492ml. Order to straight cath, 500 ml out. [id number] large amount of white pasty vaginal discharge. New order for PO Diflucan. [facility] nurse here to assess, blisters on legs and sacrum. DRessing to scarum changed and tunneling noted by WO nurse. CT of pelvis completed. Do NOt put up in chair for moren than 2 hours, turn side to side q2h. Do NOT open blisters. Follow up:
--- NOTE | 2016-03-22 19:15 | NUR ---
Patient is A&O X3, follows all commands. BP have been stable. Patient is a 1-2 assist.
--- NOTE | 2016-03-23 04:20 | NUR ---
Significant Event: Patienty a/o. Paced. VSS. RA. CPAP at [facility]. No voids. Peritoneal dialysis overnight. Mod BM x1. Blisters to LEs remain intact. Changed dressing to coccyx. Fentanyl 50 mcg and tylenol 650 mg given x2 for pain with relief. Blood glucose 149 at 2100. Follow up: Continue
[2016-03-23 06:02] LABS: BASOPHIL % 0.3 %; EOSINOPHIL # 0.3 K/uL (0.0-0.5); EOSINOPHIL % 2.5 %; HEMATOCRIT 28.4 % (33.0-46.0); IMMATURE GRANULOCYTE # 0.1 K/uL (0.0-0.3); IMMATURE GRANULOCYTE % 0.5 %; LYMPHOCYTE # 0.5 K/uL (0.8-4.0); LYMPHOCYTE % 4.6 %; MCH 31.1 pg (27.0-34.0); MCHC 31.7 gm/dL (32.0-36.5); MCV 98.3 fl (83.0-98.0); MONOCYTE # 0.6 K/uL (0.0-1.0); MONOCYTE % 4.9 %; NEUTROPHIL # (ANC) 10.2 K/uL (1.8-7.8); NEUTROPHIL % 87.2 %; NRBC % 0 /100WBC (0-0.00); PLATELET COUNT 181 K/uL (150-450); RBC 2.89 M/uL (3.50-5.50); RDW-CV 16.6 % (11.9-14.6); WBC 11.7 K/uL (4.0-11.0)
[2016-03-23 06:13] LABS: ANION GAP 19.6 (10.0-19.0); CALCIUM 8.3 mg/dL (8.5-10.5); CREATININE 7.2 mg/dL (0.5-1.1); MAGNESIUM 2.3 mg/dL (1.3-2.6); POTASSIUM 4.6 mMol/L (3.7-5.1)
[2016-03-23 08:14] LABS: PERITONEAL FLUID TURBIDITY CLEAR (CLEAR)
[2016-03-23 09:42] LABS: % PERITONEAL FLUID MONO/MACRO 45 % (0-0); % PERITONEAL FLUID NEUT 39 % (0-25)
--- NOTE | 2016-03-23 17:21 | NUR ---
Significant Event: PATIENT IS ALERT, ASSISTS WITH CARES. PACED RYTHM. LEVOPHED OFF AT THIS TIME, GOAL TO KEEP MAP >65. LIQUID BM ON SHIFT, WILL REPORT TO MD. WITT INSERTED FOR URINARY RETENTION. 75ML OF UOP, YELLOW, SEDIMENT. AND CONSULTED ON SHIFT. BLISTERS ASPIRATED BY AND DRAINED. COVERED WITH DRESSINGS. PAIN ON SHIFT, REPOSITIONED, DILAUDED GIVEN IVP X1 AND TYLENOL X1. PIV X2. ABX CHANGED ON SHIFT, MERREM, VANCO AND CLINDAMYCIN STARTED ON SHIFT. INFECTIOUS DISEASE CONSULTED. Follow up: CONTINUE CARE. MONITOR FOR CHANGES.CULTURES SENT OF FLUID FROM BLISTERS.
--- NOTE | 2016-03-24 03:32 | NUR ---
Significant Event: Patient a/o. Paced. Levo 0.02 mcg/kg/min on from 2220 to 0330. Max temp 99.6. Tylenol 650mg given x1. 1L NC during day. CPAP at night. Clear and dim. Rosales drained 28 ml yellow urine with sediment. Dressings to LE blisters and coccyx clean/dry/intact. Poor appetite. Blood glucose at 2100 was 180. MD order not to treat due to poor intake. Percocet 1 tab gievn x1 for pain with relief. Follow up: Monitor BPs
[2016-03-24 14:17] LABS: BASOPHIL % 0.2 %; EOSINOPHIL # 0.3 K/uL (0.0-0.5); EOSINOPHIL % 2.3 %; HEMATOCRIT 26.6 % (33.0-46.0); HEMOGLOBIN 8.4 g/dL (10.0-15.0); IMMATURE GRANULOCYTE # 0.1 K/uL (0.0-0.3); IMMATURE GRANULOCYTE % 0.5 %; LYMPHOCYTE # 0.8 K/uL (0.8-4.0); LYMPHOCYTE % 7.1 %; MCH 31.1 pg (27.0-34.0); MCHC 31.6 gm/dL (32.0-36.5); MCV 98.5 fl (83.0-98.0); MONOCYTE # 0.6 K/uL (0.0-1.0); MONOCYTE % 5.7 %; MPV 10.9 fl (9.4-12.4); NEUTROPHIL # (ANC) 9.3 K/uL (1.8-7.8); NEUTROPHIL % 84.2 %; NRBC % 0 /100WBC (0-0.00); PLATELET COUNT 167 K/uL (150-450); RDW-CV 16.9 % (11.9-14.6); WBC 11.1 K/uL (4.0-11.0)
[2016-03-24 14:30] LABS: ALBUMIN 2.6 gm/dL (3.5-5.0); CALCIUM 8.6 mg/dL (8.5-10.5); TOTAL BILIRUBIN 0.4 mg/dL (0.0-1.5); TOTAL PROTEIN 6.3 g/dL (6.0-8.4)
[2016-03-24 14:35] LABS: CREATININE 7.1 mg/dL (0.5-1.1)
--- NOTE | 2016-03-24 17:08 | NUR ---
Significant Event: PATIENT IS ALERT AND ORIENTED X3. PT REPORTS FEELING BETTER THAN YESTERDAY.PACED RYTHM. LEVOPHED OFF SINCE 1430 ON SHIFT. GOAL TO KEEP MAP >65 WITH GTT. PT ON 1L/NC. CPAP AT NOC. PT ATTEMPTED TO EAT MORE TODAY, STILL POOR APPETITE. WITT TO DD, 72 ML OF UOP ON SHIFT. PIV X2, NO COMPLICATIONS. NS @ 75ML/HR. UNASYN ORDERED TODAY. CLINDAMYCIN, MERREM, AND VANCO DC'D. Follow up: CONTINUE CARE. ENCOURAGE MOVEMENT AND PO INTAKE.
--- NOTE | 2016-03-25 05:06 | NUR ---
A/Ox3. Afebrile. Paced rhythm at 69 bpm. Levo 0.01-0.02 to keep MAPs >65, currently off after receiving scheduled albumin. CPAP worn tonight, otherwise patient on 2L NC. No BM this shift. Currently running peritoneal dialysis. Very low UOP. Follow up: Continue to wean Levo.
[2016-03-25 06:02] LABS: BASOPHIL % 0.2 %; EOSINOPHIL # 0.4 K/uL (0.0-0.5); EOSINOPHIL % 3.7 %; HEMATOCRIT 25.9 % (33.0-46.0); HEMOGLOBIN 8.2 g/dL (10.0-15.0); IMMATURE GRANULOCYTE # 0.1 K/uL (0.0-0.3); IMMATURE GRANULOCYTE % 0.5 %; LYMPHOCYTE # 0.8 K/uL (0.8-4.0); LYMPHOCYTE % 8.3 %; MCH 30.9 pg (27.0-34.0); MCHC 31.7 gm/dL (32.0-36.5); MCV 97.7 fl (83.0-98.0); MONOCYTE # 0.6 K/uL (0.0-1.0); MONOCYTE % 6.2 %; MPV 10.9 fl (9.4-12.4); NEUTROPHIL # (ANC) 7.9 K/uL (1.8-7.8); NEUTROPHIL % 81.1 %; NRBC % 0 /100WBC (0-0.00); PLATELET COUNT 160 K/uL (150-450); RBC 2.65 M/uL (3.50-5.50); RDW-CV 16.5 % (11.9-14.6); WBC 9.7 K/uL (4.0-11.0)
[2016-03-25 06:20] LABS: ANION GAP 20.6 (10.0-19.0); CALCIUM 8.5 mg/dL (8.5-10.5); POTASSIUM 4.6 mMol/L (3.7-5.1)
[2016-03-25 06:40] LABS: CREATININE 6.8 mg/dL (0.5-1.1)
--- NOTE | 2016-03-25 13:42 | NUR ---
A - NUT F/U. ON PERITONEAL DIALYSIS. SACRAL WOUND W/ INCREASED DRAINAGE. BILAT LE WOUNDS. APPETITE POOR. 2+ EDEMA. LABS: ACCUCHECK WNL-REAS, GLU 139, BUN/CR 64/6.8, ALB 2.6, ALK PHOS 203, HGB/HCT 8.2/25.9 MEDS; UNASYN, LACTINEX, SSI, NS @ 75 ML/HR. DIET: CARDI. INTAKE: REF-25% GLUCERNA TID NEEDS: [id number] KCAL, 78-94 G PRO D - INADEQUATE NUTRIENT INTAKE R/T DECREASED APPETITE AEB INTAKE RECORD. INCREASED PRO NEEDS R/T HEALING AEB SACRAL WOUND, BILAT LE WOUNDS. I - GOAL FOR INTAKE >50% OF NEEDS BY NEXT ASSESSMENT. WILL CONTINUE GLUCERNA TID. M/E - WILL MONITOR INTAKE AND SKIN. F/U IN 4-5 DAYS.
--- NOTE | 2016-03-25 15:46 | NUR ---
Significant Event: PATIENT IS ALERT AND ORIENTED X3. SEE EMAR, 1 PERCOCET GIVEN ON SHIFT FOR PAIN. PT SAT ON SIDE OF BED WITHOUT DIFFICULTY. REFUSES TO GET UP INTO CHAIR BECAUSE OF PAIN. PACED RYTHM, BP IS STABLE MAP >65 WITHOUT IVF OR LEVOPHED GTT. ALBUMIN SCHEDULED X2 GIVEN 2 MORE DOSES WITHIN ORDER. ACCUCHECKS NOT TREATED. BM X1 ON SHIFT. WITT TO DD, 125 UOP. Follow up: CONTINUE CARE MONITOR FOR CHANGES.
--- NOTE | 2016-03-26 05:14 | NUR ---
Significant Event: A/Ox3. Generalized weakness. Paced. Cpap @ noc and 1L NC day. Cardiac diet - ? change to renal. Low UOP - quinones. BLE old blisters - opened by dermatology - vasaline gauze and kerlex (change prn). Coccyx - small open area that tunnels - iodoform/gauze (change BID). Foot drop boots. Right hand and left ac IVSL. PRN percocet. Follow up:
[2016-03-26 05:55] LABS: BASOPHIL % 0.3 %; EOSINOPHIL # 0.4 K/uL (0.0-0.5); EOSINOPHIL % 5.8 %; HEMATOCRIT 24.3 % (33.0-46.0); IMMATURE GRANULOCYTE % 0.6 %; LYMPHOCYTE # 0.7 K/uL (0.8-4.0); LYMPHOCYTE % 10.8 %; MCH 30.1 pg (27.0-34.0); MCHC 30.9 gm/dL (32.0-36.5); MCV 97.6 fl (83.0-98.0); MONOCYTE # 0.6 K/uL (0.0-1.0); MONOCYTE % 8.5 %; MPV 10.1 fl (9.4-12.4); NEUTROPHIL # (ANC) 5.1 K/uL (1.8-7.8); NRBC % 0 /100WBC (0-0.00); PLATELET COUNT 139 K/uL (150-450); RBC 2.49 M/uL (3.50-5.50); RDW-CV 16.8 % (11.9-14.6); WBC 6.9 K/uL (4.0-11.0)
[2016-03-26 06:04] LABS: HEMOGLOBIN 7.5 g/dL (10.0-15.0)
[2016-03-26 06:12] LABS: ANION GAP 17.1 (10.0-19.0); CALCIUM 8.4 mg/dL (8.5-10.5); POTASSIUM 4.1 mMol/L (3.7-5.1)
[2016-03-26 06:15] LABS: CREATININE 6.9 mg/dL (0.5-1.1)
--- NOTE | 2016-03-26 14:35 | NUR ---
Introduced self and role of care management to patient. Patient lives with spouse in [place]. Talked with her about need for termite technician IV ATBs and dressing packing/changes. She hopes to be able to go home. She says her was doing dressing changes before so he will be able to do her dressing changes. Talked with her about Home Infusion versus OP ATBs. Also told her medicare does not cover well for HI. Also talked to her about skilled care. She really does not want to go to a skilled facility and feels she will do better going home. She says they do her peritoneal dialysis so she thinks they could do HI. She will talk with her about the options and let me know what they prefer. Told her will try to get her an estimate on the cost of HI. Will follow.
--- NOTE | 2016-03-26 20:15 | NUR ---
Significant Event: Patient is A/Ox3. Paced with HR 60's. VSS. Afebrile. On 1L NC with spo2 >93%, did try to wean to off but spo2 dropped to 86-88% Lungs ascultated clear/diminished. Active bowel sounds, no BM. Quinones patent with minimal UOP,new order to discontinue quinones. Blood sugar this am was 57, followed hypoglycemic protocol, new orer to discontinue glimeride. Gave PRN tylenolx1, denied pain rest of day. Changed phoslo to renvela, see IRIS report. Follow up:Continue to monitor accuchecks. Disontinue quinones.
--- NOTE | 2016-03-27 03:55 | NUR ---
Significant Event: PATIENT IS A/O X3. VSS. HR 69 PACED RHYTHM. SBP 110-120'S. AFEBRILE. 02 SATS IN MID 90'S ON CPAP AND INCREASED TO 4L BLEED INTO CPAP. DESATS WITH SLEEP. RA DURING DAY. LUNGS CLEAR/DIM THROUGHOUT. UP WITH 1-2 ASSIST WITH WALKER/GB. C/O WEAKNESS. LOOSE STOOLS PAST COUPLE OF DAYS. CDIFF NEGATIVE. HAS PERITONEAL DIALYSIS CATHER WITH PD RUNNING. USUALLY PUTS OUT AROUND 100 ML URINE PER SHIFT. OPEN SORE TO COCCX ABOUT ERASER SIZE. PACKED WITH GAUZE ABOUT 1/2 INCH WITH GAUZE AND TAPE IN PLACE. DRESSING C/D/I. DRESSING CHANGE BID. DRESSINGS TO BILATERAL LOWER EXTREMITIES C/D/I AND CHANGED BID WITH PETROLEUM GAUZE AND KERLEX. DEVELOPED BLISTERS TO SHINS AND SOME OPENED BY SELF WHILE OTHERS OPENED BY WOC TO EXAMINE FLUID. FLUID CULTURES CAME BACK NEGATIVE FOR INFECTION. WEARS FOOT DROP BOOTS IN BED TO PROTECT SHINS. IV TO RIGHT AND AND LEFT AC SL. LEFT AC DRESSING CHANGED. Follow up: CONTINUE TO MONITOR PER PLAN OF CARE. DIALYSIS TO COME BY IN AM TO CHECK PD MACHINE.
[2016-03-27 05:15] LABS: BASOPHIL % 0.3 %; EOSINOPHIL # 0.4 K/uL (0.0-0.5); EOSINOPHIL % 5.5 %; HEMATOCRIT 26.2 % (33.0-46.0); HEMOGLOBIN 8.3 g/dL (10.0-15.0); IMMATURE GRANULOCYTE # 0.1 K/uL (0.0-0.3); IMMATURE GRANULOCYTE % 0.8 %; LYMPHOCYTE # 0.8 K/uL (0.8-4.0); LYMPHOCYTE % 10.5 %; MCH 30.9 pg (27.0-34.0); MCHC 31.7 gm/dL (32.0-36.5); MCV 97.4 fl (83.0-98.0); MONOCYTE # 0.6 K/uL (0.0-1.0); MPV 10.9 fl (9.4-12.4); NEUTROPHIL # (ANC) 5.3 K/uL (1.8-7.8); NEUTROPHIL % 73.9 %; NRBC % 0 /100WBC (0-0.00); RBC 2.69 M/uL (3.50-5.50); RDW-CV 16.5 % (11.9-14.6); WBC 7.1 K/uL (4.0-11.0)
[2016-03-27 05:25] LABS: PLATELET COUNT 169 K/uL (150-450)
[2016-03-27 05:29] LABS: ANION GAP 17.2 (10.0-19.0); CALCIUM 8.6 mg/dL (8.5-10.5); MAGNESIUM 2.1 mg/dL (1.3-2.6); POTASSIUM 4.2 mMol/L (3.7-5.1)
--- NOTE | 2016-03-27 16:45 | NUR ---
Significant Event: A/O X3. UP WITH SBA, GB AND WALKER. AMBULATED IN HALLS WITH PT. PIV TO LEFT AC AND RIGHT HAND SL'D. VSS. ROOM AIR WHILE AWAKE, 4L NC WHILE ASLEEP. DRESSING CHANGED TO COCCYX AND BILATERAL LOWER LEG X1. C/O PAIN TO COCCYX, SCHEDULED ULTRAM AND 1 TAB PRN PERCOCET. LABS IN AM. PLEASANT AND COOPERATIVE WITH CARES. Follow up:
[2016-03-28 04:36] LABS: ANION GAP 17.3 (10.0-19.0); CALCIUM 8.2 mg/dL (8.5-10.5); MAGNESIUM 2.2 mg/dL (1.3-2.6); POTASSIUM 4.3 mMol/L (3.7-5.1)
--- NOTE | 2016-03-28 04:40 | NUR ---
Significant Event: PATIENT IS A/O X3. VSS. HR 60'S IN PACED RHYTHM. SBP 100-120'S. AFEBRILE. 02 SATS IN LOW 90'S ON 1-4L 02 DURING DAY AND 4L 02 WITH CPAP AT NIGHT. C/O PAIN TO COCCYX. KERRY ULTRAM GIVEN WITH RELIEF. LUNGS CLEAR/DIM THROUGHOUT. UP WITH 1 ASSIST WITH WALKER/GB. WEARS FOOT DROP BOOTS WHEN IN BED. BOWELS HYPOACTIVE. BM X1. PERITONEAL DIALYSIS CURRENTLY RUNNING. ABOUT 100ML URINE PER SHIFT. BLISTERS TO LOWER EXTREMITIES COVERED WITH GAUZE/KERLEX GAUZE AND OPEN AREA TO COCCYX PACK WITH GAUZE AND COVERED WITH GAUZE/TAPE. DRESSING CHANGED X1. BID DRESSING CHANGES. IV TO LEFT AC AND RIGHT HAND BOTH SL. ON ACHS ACCUCHECKS. Follow up: CONTINUE TO MONITOR PER PLAN OF CARE.
[2016-03-28 04:58] LABS: CREATININE 7.4 mg/dL (0.5-1.1)
--- NOTE | 2016-03-28 17:29 | NUR ---
Significant Event: A/O X3. UP WITH 1 ASSIST, GB AND WALKER. AMBULATED IN HALLS WITH PT. O2 2L NC TO KEEP SATS >90%. CPAP WHEN SLEEPING WITH 4L O2 BLED IN. VSS. C/O PAIN 06/04 TO COCCYX WOUND, SCHEDULED ULTRAM GIVEN AND 0.5 MG IV DILAUDID TO PRE-MEDICATE FOR DRESSING CHANGES. REFUSED LUNCH. Follow up: LAB IN AM.
[2016-03-29 04:00] LABS: ANION GAP 17.8 (10.0-19.0); CALCIUM 8.8 mg/dL (8.5-10.5); MAGNESIUM 2.4 mg/dL (1.3-2.6); POTASSIUM 4.8 mMol/L (3.7-5.1)
[2016-03-29 04:01] LABS: CREATININE 7.6 mg/dL (0.5-1.1)
--- NOTE | 2016-03-29 05:03 | NUR ---
Significant Event: PATIENT IS A/O X3. VSS. HR 60'S PACED RHYTHM. SBP 90-120'S. AFEBRILE. 02 SATS IN LOW TO MID 90'S ON CPAP WITH 4L BLEED. WEARS 1-3L 02 DURING DAY. C/O PAIN. GAVE KERRY ULTRAM AND 0.5MG IVP DILAUDID BEFORE DRESSING CHANGE TO COCCYX. LUNGS CLEAR/DIM THROUGHOUT. UP WITH 1 ASSIST WALKER/GB. RECEIVES PERITONEAL DIALYSIS AT NIGHT. VOIDS ABOUT 100 ML PER SHIFTS. BLISTERS TO LOWER EXTREMITIES COVERED WITH GAUZE AND KERLEX. DRESSING CHANGE BID. COCCYX PACKED AND COVERED WITH GAUZE TAPE. DRESSING CHANGE BID. HAS ABOUT 1/2 INCH TO ONE INCH TUNNELED PRESSURE ULCER. IV'S TO LEFT AC AND RIGHT HAND BOTH SL. ON ACHS ACCUCHECKS. Follow up: CONTINUE TO MONITOR PER PLAN OF CARE.
--- NOTE | 2016-03-29 11:46 | NUR ---
A - NUT F/U. PERITONEAL DIALYSIS. TUNNELING SACRAL PU. BILAT LEG WOUNDS. 1+ EDEMA. LABS: ACCUCHECK 55-REAS, GLU 176, BUN/CR 62/7.6, HGB/HCT 8.3/26.2 MEDS: RENVELA, GABAPENTIN, UNASYN, LACTINEX, SSI DIET: CARDIAC. INTAKE: MOSTLY 50-100%. GLUCERNA TID - 100% NEEDS: 0713-1526 KCAL, 78-94 G PRO D - INCREASED PRO NEEDS R/T HEALING AEB SACRAL PU. I - GOAL FOR INTAKE TO REMAIN 50-100% FOR DURATION OF STAY. GOAL FOR IMPROVED SKIN INTEGRITY. WILL CONTINUE GLUCERNA TID. WILL ADD SINDHU BID. M/E - WILL MONITOR INTAKE AND SKIN. F/U IN 3-5 DAYS.
--- NOTE | 2016-03-29 19:05 | NUR ---
Significant Event:A/O X 3. Ambulates with SBA and oxygen. Turns in bed with help of 1 person every 2 hours from side to side. UP in the chair for < 2 hours, ambulates in the logan, up to the BR to toilet. Paced rhythm. Room air when up during the day, but desats to low 80's with activity, desats to 70's when napping, so put on CPAP. Fair appetite, does drink Glucerna supplement. 2 small semi formed BM's today. Voids in the BR, 100 ml at a time. Peritoneal Dialysis exchange discontinued by dialysis nurse, with report of 928 ml off. Patient refused dressing changes until this evening. Gave IVP Dilaudid prior to dressing changed. Sacral dressing is saturated with pink sero-sang drainage. L) Posterior blister is open and dark in color, but dry. Right blister on front of leg is open with skin intact and has moderate amount serous drainage. L) heel intact but looks dark. Foot drop boots on while in bed. Refused bath today, but did receive pericare and gown changed. Follow up:Pulse ox with activity and overnight trend oximetery tonight. Home tomorrow with PO Augmentin. Patient reports that "she will NOT go home with oxygen because her mother did and she does not want to be like her mother." is supportive at the bedside and this nurse did explain what happens when patient does not have enough O2. understands and is also telling Neymar that she may not be able to go home without it. Patient responds with angry words.
[2016-03-30 03:53] LABS: ALBUMIN 2.6 gm/dL (3.5-5.0); ANION GAP 18.4 (10.0-19.0); CALCIUM 8.3 mg/dL (8.5-10.5); PHOSPHORUS 7.2 mg/dL (2.5-4.9); POTASSIUM 4.4 mMol/L (3.7-5.1)
[2016-03-30 03:55] LABS: CREATININE 7.8 mg/dL (0.5-1.1)
--- NOTE | 2016-03-30 05:43 | NUR ---
Significant Event: Patient alert and oriented x3. Vital signs stable. On 1-2L O2 per NC while up. CPap while lying in bed or 4L NC. Up to 2L O2 this shift with CPAP. Patient and hooked up paritoneal diaylsis. Draining well. No complications. Up with 1 assist to the bathroom. Reminders to turn Q2 hours. Complained of pain to sacrum x1 this shift. Dilauded and scheduled Ultram given with relief. Dressings to legs C/D/I. Boots on while in bed. Patient calm and cooperative with all cares. Follow up: Labs this morning. Ambulating Pulse Ox today. Home today.
--- NOTE | 2016-03-30 11:00 | NUR ---
Spoke with patient and regarding discharge plans. She plans home today. IV ATBs were changed ot daily. They would prefer to bring her to the [facility] for IV ATBs if needed. will do wound cares and packing of wound. Denies discharge needs. Dr. Gomes here to see patient and he is going to switch her to po ATBs. Plan is patient home today with to assist her at home.
[2016-03-30] MEDS ORDERED: CPAP INH (15:32)
[2016-03-30] MEDS ORDERED: CLEOCIN150 MG PO (15:36)
--- NOTE | 2016-03-30 16:15 | NUR ---
A&O. VSS. [facility] NURSES SEEING FOR WOUNDS, ALL DRESSINGS CHANGED. LS CLEAR/DIM. ACHS ACCUCH. PO ATBX. PD CATH INTACT. 2L02 DAY/4L NOC OR CPAP. AT BEDSIDE, INSTRUCTIONS REVIEWED SC HOME PER PRIVATE VEHICLE WITH .
[2016-05-27] MEDS ORDERED: LEXAPRO10 MG PO (16:30)
[2016-05-27] MEDS ORDERED: ROCALTROL0.25 MCG PO (16:31)
[2016-05-27] MEDS ORDERED: RENVELA800 MG PO ×2 (16:34)
[2016-05-27] MEDS ORDERED: TOUJEO SOL300 UNIT/1 SUB-Q (16:40)
[2016-06-03] MEDS ORDERED: NORCO 5-325 TA1 EACH PO (13:31)
[2016-10-22] MEDS ORDERED: PROTONIX40 MG PO (11:28)
[2016-10-22] MEDS ORDERED: TOUJEO SOL300 UNIT/1 SUB-Q (11:30)
[2016-10-22] MEDS ORDERED: TRIPHROCAPS SOFT1 MG PO (11:30)
[2016-10-22] MEDS ORDERED: ACID REDUCER10 MG PO (11:32)
[2016-10-22] MEDS ORDERED: ARTIFICIAL TEAR15 M2 OPHTH (11:33)
[2016-10-22] MEDS ORDERED: PAXIL10 MG PO (11:35)
[2016-10-22] MEDS ORDERED: HUMALOG100 UNIT/2 SUB-Q (11:45)
== END 2016-03-30 16:00 | disposition disaster alternative care site (69) | DRG 871 ==
LOC: GMED 11:39 → GICU 14:54 → GPCU 14:54 → GICU 03-22 10:54 → GPCU 03-26 22:02
PROVIDERS: Family Medicine; Hospitalist; Internal Medicine; Internal Medicine Nephrology; Nurse Practitioner; ADMIT Family Medicine
PROC: 3E1M39Z Irrigation of Peritoneal Cavity using Dialysate, Percutaneous Approach (ICD-10-PCS; principal; 2016-03-22)
PROC: 3E033XZ Introduction of Vasopressor into Peripheral Vein, Percutaneous Approach (ICD-10-PCS; 2016-03-23)
DX: A40.9 Streptococcal sepsis, unspecified (principal); N18.6 End stage renal disease; J96.01 Acute respiratory failure with hypoxia; R65.21 Severe sepsis with septic shock; L89.150 Pressure ulcer of sacral region, unstageable; I12.0 Hypertensive chronic kidney disease with stage 5 chronic kidney disease or end stage renal disease; E11.22 Type 2 diabetes mellitus with diabetic chronic kidney disease; I27.2 Other secondary pulmonary hypertension; Z79.01 Long term (current) use of anticoagulants; I25.10 Atherosclerotic heart disease of native coronary artery without angina pectoris; Z95.5 Presence of coronary angioplasty implant and graft; G47.33 Obstructive sleep apnea (adult) (pediatric); Z95.0 Presence of cardiac pacemaker; T40.4X5A Adverse effect of other synthetic narcotics, initial encounter; E78.5 Hyperlipidemia, unspecified; F32.9 Major depressive disorder, single episode, unspecified; G25.81 Restless legs syndrome; L13.9 Bullous disorder, unspecified; I48.0 Paroxysmal atrial fibrillation
CPT/HCPCS: J0295; J0878; J1170; J1200; J1956; J2185; J2543; J3010; J3370; J7030; J7040; J7050; J7060; P9045; P9047

== ENCOUNTER → 2016-06-10 | Outpatient (CLI) | payer MEDICARE, OTHER ==
[~2016-06-10] MED LIST changes: +ACID REDUCER10 MG PO; +ARTIFICIAL TEAR15 M2 OPHTH; +BAYER CHILD81 MG PO; +CLEOCIN150 MG PO; +HUMALOG100 UNIT/2 SUB-Q; +LEXAPRO10 MG PO; +NEURONTIN100 MG PO; +NORCO 5-325 TA1 EACH PO; +NOVOLOG100 UNIT/M SUB-Q; +PAXIL10 MG PO; +PEPCID20 MG PO; +PROAMATINE5 MG PO; +PROTONIX40 MG PO; +RENVELA800 MG PO; +ROCALTROL0.25 MCG PO; +ROPINIROLE HC0.25 MG PO; +TEARS AGAIN EYE5 GM OPHTH; +TORSEMIDE100 MG PO; +TOUJEO SOL300 UNIT/1 SUB-Q; +TRIPHROCAPS SOFT1 MG PO; +ULTRAM50 MG PO
--- NOTE | ~2016-06-10 | CON ---
PATIENT'S NAME: MARIE PAEZ [facility] AGE: 70 Y [address] ROOM: [place] [address] LOCATION: [facility] ADMIT DATE: 06/10/2016 Consultation DISCHARGE DATE: FAMILY PHYSICIAN: OLGA ELISE MD ATTENDING PHYSICIAN: OLGA ELISE DATE OF CONSULTATION: 06/10/2016 [id number] encounter time is 2 p.m. to 3:30 p.m. Marie Paez is a 70-year-old white female, patient of Dr. Elise, coming in for some diabetic education and refreshing. Her current height is 5 feet 4 inches, weight 173.6 pounds, and BMI is 29.76. She has been a diabetic for about 20 years now. She has a lot of family history of diabetes on her mother's side who had 13 siblings, and all 13 of them were type 2 diabetics. She also has end-stage renal disease, currently on peritoneal dialysis; anemia of chronic kidney disease; cardiorenal syndrome; atrial fibrillation, and obstructive sleep apnea. Her current medication regimen is: 1. Gentamicin sulfate 0.1% external cream applied to the PD catheter site on a daily basis. 2. Paroxetine 10 mg once daily. 3. Renvela 800 mg, 4 of them with her main meal or largest meal, 3 with all her other meals, and 2 with snacks. 4. Triphrocaps 1 mg one daily. 5. Eliquis 2.5 mg twice daily. 6. Glimepiride 4 mg daily. 7. Toujeo 10 units subcu daily. 8. Furosemide 100 mg 2 tablets daily. 9. Allopurinol 300 mg daily. 10. Gabapentin 300 mg at bedtime. 11. Pantoprazole 40 mg b.i.d. 12. Atorvastatin 20 mg one daily. 13. Metoprolol tartrate half a tablet twice daily. 14. Primidone 50 mg daily. 15. Calcitriol 0.25 mcg once daily. The patient's most recent lab data was obtained on May 04, A1c was 7.2%; on March 23, it was 8.7%; and she said her most recent one in May was 6.9%. I do not have a fasting glucose available. Her total cholesterol was 150, HDL 44, LDL 77, and triglycerides 147. Current blood pressure is 110/64. I advised her we would like her morning blood sugars fasting to be between 100 and 130, and 2 hours after her meals, less than 180. Her current potassium is 3.3, BUN 63, and creatinine 9.3. Albumin 3.1. Hemoglobin 10.4 with an iron saturation of 17% and a phosphorus of 6.1. She is, as I stated before, on peritoneal dialysis, so has to deal with a glucose that is in her dialysis fluid that does affect her blood sugars. She currently PATIENT'S NAME: MARIE PAEZ [facility] AGE: 70 Y [address] ROOM: [place] [address] LOC[facility] ADMIT DATE: 06/10/2016 Consultation DISCHARGE DATE: FAMILY PHYSICIAN: OLGA ELISE MD ATTENDING PHYSICIAN: OLGA ELISE is only testing her blood sugar about one time daily, usually before breakfast. She has a Freestyle meter that she is using that is at least 10 years old, and then she relates to me that all of her strips that she has are and have been so for quite some time. Her previous insurance company has sent her multitudes of strips, and she just saved them in a cupboard. I advised her that those are not very accurate, that we need to get her some new ones. A new script was sent in to [facility] for new Freestyle Lite test strips. I also gave her a new Freestyle glucometer. She notes that she does not wipe the first drop of blood off when she tests her blood sugars, so we revisited the appropriate steps in obtaining a blood sugar. She realizes that she is not eating very well. She just does not feel like eating, mainly because of her kidney disease. Her appetite is better earlier in the day than it is later. She notes that she has no symptoms of hypoglycemia. She does not feel bad. She does not feel bad when her sugar is 68. She does have exercise limitations just because she has no energy and because of her chronic kidney disease and end-stage renal disease as well as her cardiorenal syndrome. Her last hypoglycemic event was on June 04 at 7:30 in the morning which kind of surprised me given the fact that she has had peritoneal fluid dialysate in her abdomen all night and the sugar is not higher. She does note that she uses a Worther's candy, one of those, to treat her hypoglycemia, and that always takes care of it. She used to go to [employer] [facility] [employer] [facility] to exercise and really liked the stepper that they had there. She just has not been able to do that. I advised her that given all of her health problems, that it would be pike for her to be cautious, but even if she could walk for 10 or 15 minutes a day, she may feel better. She does not go to the dentist as she has dentures. She has no gum disease. She has an eye exam yearly with Dr. Mayfield and had cataract surgery 2 years ago[address] She sees Dr. Monk routinely for her retinopathy. Her foot exam was not performed today as she sees wound care nurses, and she has a blister on her right toe. She has no loss of sensation. In fact, she notes that her feet are actually extra-sensitive and very actually ticklish. 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 She retired, about 3 years ago. She denies any alcohol intake. She does not smoke. She lives at home with her spouse who seems to be very caring and attentive and is present in our meeting today. She prepares the meals herself. She says evenings are just not good for her to eat, and she has a hard time even cooking for him. They eat out about 4 times a week. They go to [facility] almost every morning with several retired couples, and she has a sausage burrito. Her weekends and weekdays are about the same. She does all of her PD exchanges during the night. She has early satiety and denies any constipation or diarrhea. She denies any food allergies or intolerances. Her vitamin and mineral supplements consist of calcitriol and the Triphrocaps. Her normal mornings begin at 7 o'clock in the morning. She gets up and checks her blood sugar and finishes up her PD needs. At 8:30, they go to coffee and breakfast at [employer], and she has coffee with sugar-free and fat-free PATIENT'S NAME: MARIE PAEZ [facility] AGE: 70 Y [address] ROOM: [place] [address] [facility] ADMIT DATE: 06/10/2016 Consultation DISCHARGE DATE: FAMILY PHYSICIAN: OLGA ELISE MD ATTENDING PHYSICIAN: OLGA ELISE creamer, a sausage burrito which is about 26 g of carbohydrate and 12 g of protein. She is on a 54-ounce of fluid restriction, and she also has a pacemaker and a stent. She does not usually eat a midmorning snack. If she does, she will try to have something with some protein in it as her albumin is low. Lunch is about 1 o'clock. She will have a half of sandwich, salsa with celery or applesauce, and water or a sugar-free lemonade,Crystal Light. If she goes out, she will have a salad with pomegranate dressing or a chicken sandwich with no bread. As you can see, she only has about may be 27 g of carbohydrate for lunch. At 4 o'clock, sometimes she will have a protein drink, but that makes her feel really full, and if she does that, then she is not able to eat her evening meal. Her evening meal is usually about 6 o'clock. She does a lot of stuff in the Crock-Pot; Crock-Pot chicken and mashed potatoes. She has to be careful with her fruit intake because of the phosphorus, so she will sometimes have apples, nectarines, a half of orange, or one cutie, some strawberries and grapes. She does not eat a bedtime snack at all. She has sleeping difficulties and has had for quite some time. We did discuss her carbohydrate intake, and I would really like it to be closer to 190 g a day. Right now, she is only getting about 57. I told her that was entirely too little for her energy needs. We also talked about increasing her protein intake, and we discussed the use of some other supplement called [employer] that has 18 g of carbohydrate. Again, we have to be careful because of her fluid restriction. We discussed some protein bars, belgian yogurt, and adding a little bit of protein to the already 12 g of protein in belgian yogurt. She said that she would be willing to try that. We decided to try to get that in earlier in the day when her appetite is better and see if we can just increase her albumin. They had many questions that were answered to their satisfaction. She is very willing to do the changes that she needs. It has just been very difficult because of all of her comorbidities. I did not really discuss the plate method, although she fully understands as she has had previous diabetic education many years ago. We discussed portion sizes and meat intake which again she needs to increase her protein intake. We discussed seeing her when she comes in to see Dr. Elise to check her blood sugars and testing in pairs for 3 days prior to her appointment which we will review with an appointment with Dr. Elise on July 05. I discussed with them my concern of her being on the glimepiride and her inability to eat and that I am surprised that she is not having more lows. I am concerned that her A1c has gone down to 6.9%, may be that she is having more lows than she may realize and that is not good for her brain. I also am concerned that may be she is not consuming enough food to get. I would think that we would be very tolerant of having her having an A1c of 7.5 given her medical problems. I did discuss this with Dr. Elise, and he has the same concerns that I do. We will follow up with her on July [address] Elise. Thank you for this interesting consultation. PATIENT'S NAME: MARIE PAEZ [facility] AGE: 70 Y [address] ROOM: [place] [address] [facility] ADMIT DATE: 06/10/2016 Consultation DISCHARGE DATE: FAMILY PHYSICIAN: OLGA ELISE MD ATTENDING PHYSICIAN: OLGA ELISE MARTY CARVALHO/fernando /[id number] d: 06/16/16 1550 t: 06/17/16 1354, CONSULTATION REPORT
== END | disposition disaster alternative care site (69) ==
LOC: GDIC 10:48
DX: E11.9 Type 2 diabetes mellitus without complications (principal); Z99.2 Dependence on renal dialysis; Z79.899 Other long term (current) drug therapy
CPT/HCPCS: G0108

== ENCOUNTER 2016-07-20 17:10 | Inpatient (IN) | payer MEDICARE, OTHER ==
[~2016-07-20] VITALS: Ht 160 cm; Wt 91.1 kg
--- NOTE | ~2016-07-20 | CON ---
PATIENT'S NAME: NORMA PAEZ [facility] AGE: 71 Y [address] ROOM: [place] [address] LOCATION: [facility] ADMIT DATE: 07/20/2016 Consultation DISCHARGE DATE: FAMILY PHYSICIAN: OLGA ELISE MD ATTENDING PHYSICIAN: LORIE BAILEY DATE OF CONSULTATION: 07/20/2016 REFERRING PHYSICIAN: DENISE KOENIG MD This is a [facility] consultation. REASON FOR CONSULTATION: Right hip fracture with history of end-stage renal disease requiring CCPD. HISTORY OF PRESENT ILLNESS: This is a 71-year-old female patient who is well known to Dr. Brush who came into the emergency room after sustaining a fall on her right hip. The patient reports that she did get her feet caught in her blankets and fell directly on her right hip. Her called the ambulance and the patient was brought into the emergency room for further evaluation. The patient does have a longstanding history of end-stage renal disease on CCPD and is followed by Dr. Brush as an outpatient. She was recently seen in the clinic within the last 2 weeks and has been reportedly doing quite well. Her blood pressures have been stable in the 130s systolically. She has been quite active and going on numerous trips with her over the past few months. Overall, she has felt better in the last 2 months than she has in the last year. She continues to follow with Dr. Elise, her primary care provider, who does manage her diabetes. Due to the patient's history of end-stage renal disease on peritoneal dialysis, Dr. Brush has been asked to follow the patient and manage her dialysis inpatient. The patient does have a history of end-stage renal disease secondary to vascular disease versus cardiorenal syndrome type 2. She did have a longstanding history of congestive heart failure with multiple admissions of decompensated heart failure with fluid or volume overload. She had been managed with IV diuretics until October 2015. PAST MEDICAL HISTORY: As listed above including, 1. End-stage renal disease secondary to vascular disease/cardiorenal syndrome type 2. 2. Coronary artery disease status post PCI. PATIENT'S NAME: NORMA PAEZ [facility] AGE: 71 Y [address] ROOM: [place] [address] LOCATION: [facility] ADMIT DATE: 07/20/2016 Consultation DISCHARGE DATE: FAMILY PHYSICIAN: OLGA ELISE MD ATTENDING PHYSICIAN: LORIE BAILEY 3. Diastolic heart failure. 4. Status post permanent pacemaker implantation. 5. Atrial fibrillation. 6. Long-term anticoagulation. 7. Dyslipidemia. 8. Hypertension. 9. Obstructive sleep apnea. 10. Pulmonary hypertension. 11. History of pancreatitis secondary to diabetes mellitus medications. 12. Recent sacral wound. 13. Depression and anxiety. 14. Restless legs syndrome on Requip. PAST SURGICAL HISTORY: As listed above including, 1. Peritoneal dialysis catheter placement. 2. Appendectomy. 3. Cholecystectomy. 4. Pacemaker placement. 5. Left heart catheterization with PCI in 2009. 6. Right wrist surgery. 7. Cataract surgery. 8. Tunneled dialysis catheter placement. 9. Recent peritoneal dialysis catheter placement 2015. ALLERGIES: JANUVIA AND PRADAXA. CURRENT MEDICATIONS: 1. Tylenol 1000 mg p.o. q.6 hours p.r.n. pain. 2. Allopurinol 300 mg daily. 3. Eliquis 2.5 mg twice a day. 4. Artificial tear ointment p.r.n. shots for her eyes. 5. Atorvastatin 20 mg daily. 6. B complex and folic acid 1 mg daily. 7. Calcitriol 0.25 mg daily. 8. Lexapro 10 mg daily. 9. Gabapentin 100 mg daily at bedtime. 10. Glimepiride 4 mg daily. 11. NovoLog 0 to 8 units sliding scale subcu b.i.d. 12. Toujeo 10 units subcu nightly. 13. Lactobacillus 1 tablet daily. 14. Metoprolol tartrate 12.5 mg twice a day. 15. Potassium chloride 20 mEq p.o. daily. 16. Primidone 50 mg daily. PATIENT'S NAME: NORMA PAEZ [facility] AGE: 71 Y [address] ROOM: [place] [address] LOCATION: [facility] ADMIT DATE: 07/20/2016 Consultation DISCHARGE DATE: FAMILY PHYSICIAN: OLGA ELISE MD ATTENDING PHYSICIAN: LORIE BAILEY 17. Requip 0.25 mg p.o. 3 times a day. 18. Renvela 3 to 4, 800 mg tablets 3 times a day with food. 19. Renvela 1600 mg p.o. twice a day with snacks. 20. Torsemide 200 mg daily. REVIEW OF SYSTEMS: GENERAL: Denies any fever, chills, or night sweats. EYES: No double vision or blurred vision. NOSE: No epistaxis or rhinorrhea. MOUTH: No gingival bleeding. THROAT: No sore throat, hoarseness, or cough. RESPIRATORY: Denies wheezing or hemoptysis. CARDIOVASCULAR: Denies any chest pain or palpitations. GASTROINTESTINAL: Somewhat nauseated since hip fracture. Doing okay now after antiemetics. No vomiting, diarrhea. GENITOURINARY: The patient does continue to make some urine and does take a loop diuretic for this. MUSCULOSKELETAL: Positive right hip pain. HEMATOLOGICAL: Denies bruising or easy bleeding on Eliquis therapy. NEUROLOGICAL: Denies numbness and tingling in the upper or lower extremities. IMMUNOLOGICAL: Denies any history of recent infections. PHYSICAL EXAMINATION: VITAL SIGNS: Blood pressure is 83/38, pulse is 80, respirations 16, temp is 98.4, weight is 78.5. GENERAL: On exam, this is an alert and oriented white female, who appears her approximate stated age, is in no acute distress. She is alert and oriented to person, place, and time. HEENT. Her head is normocephalic and atraumatic. Eyes, pupils are equal and react briskly to light and accommodation. EOMs are intact. Nose, midline. Mouth, no gingival bleeding. Throat is without lymphadenopathy or carotid bruits. LUNGS: Lung sounds are clear to auscultation anteriorly and posteriorly. CARDIOVASCULAR: Regular rate and rhythm with no appreciable murmurs, rubs, or thrills. ABDOMEN: Soft, nontender, and nondistended. Bowel sounds are positive. EXTREMITIES: Do show 1+ lower extremity bilateral edema. MUSCULOSKELETAL: Does note positive pain to palpation of the right hip and right lower extremity. NEUROLOGIC: Cranial nerves II through XII are grossly intact. LABORATORY DATA: Glucose 72, BUN 86, creatinine 8.2, sodium 141, potassium 3.8, chloride 101, CO2 is 27, calcium 8.6, albumin 2.0, AST 51, ALT 56, alkaline phosphatase 251, mag is 2.5. PATIENT'S NAME: NORMA PAEZ [facility] AGE: 71 Y [address] ROOM: [address] [address] LOCATION: [facility] ADMIT DATE: 07/20/2016 Consultation DISCHARGE DATE: FAMILY PHYSICIAN: OLGA ELISE MD ATTENDING PHYSICIAN: LORIE BAILEY Chest x-ray was performed showing cardiomegaly with vascular prominence and mild right pleural effusion. CT abdomen and pelvis notes, 1. Nondisplaced high intertrochanteric fracture of the right femur. 2. Normal left hip. 3. Remaining pelvic bones are normal. 4. Degenerative changes advanced at L4-5 and L5-S1. Impression: Nondisplaced high intertrochanteric fracture of the right femur. ASSESSMENT AND PLAN: 1. End-stage renal disease on CCPD. We will obtain the patient's outpatient clinical record and provide peritoneal dialysis accordingly. Further recommendations will be forthcoming. 2. Right intertrochanteric hip fracture. Dr. Bailey is planning to take the patient to the OR tomorrow. 3. Hyperphosphatemia. The patient is to continue her Renvela with food. She is currently n.p.o. We will hold the Renvela at this time. 4. Hypokalemia. We will replace her potassium. 5. Hypotension. Bps are labile today, will adjust her dialysate to 1.5% bags to minimize ultrafiltration loss prior to surgery. Midodrine PRN. This patient has been seen and assessed by Dr. Brush. Her care is being conducted in consultation with Dr. Brush as well as me. We will plan further recommendations as they are forthcoming. TAI CHAWLA DNP, CYBER SOFTWARE ENGINEER FOR M MD AKIRA HAMMER/modl /[id number] d: 07/21/162311 t: 08/05/16 1631, CONSULTATION REPORT
--- NOTE | ~2016-07-20 | ECHO ---
Transthoracic Echocardiography Report (TTE) Demographics Patient Name NORMA PAEZ Date of Study 07/21/2016 Patient Number [id number] Visit Number [id number] Date of 1945 Room Number G3314 Gender Female Number Age 71 year(s) Referring Radha Mccarthy MD Truck Unloader Veronica Miranda, Physician RT,RVT,RDCS Physician Interpreting Padmini Zuniga Thread Inspector Physician Supervising Ordering Radha Mccarthy MD, MD/MLP Physician Nurse Stress Mission Support Specialist Conclusions Summary The estimated left ventricular ejection fraction is 50%. Mild biatrial enlargement. Mildly dilated right ventricle. There is moderate pulmonary hypertension. The pulmonary pressure (RVSP) is 49 mmHg. Moderate TR. Mild degenerative changes of MV/AV. Procedure Type of Study TTE procedure:2D Echocardiogram, M-Mode, Doppler , Color Doppler. Procedure Date Date: 07/21/2016 Start: 04:49 PM Study Location: Inpatient Portable Technical Quality: Adequate visualization Indications:Hypotension. Additional Indications:arrhythmia. Appropriate Use Criteria: 9 Patient Status: CARLO HR: 74 bpm BP: 105/54 mmHg Allergies - Other:(Sitagliptin). M-Mode/2D Measurements LV Diastolic Dimension: 4.22 cm LV Systolic Dimension: 3.06 cm LV Septum Diastolic: 1.86 cm LV Septum Systolic: 1.52 cm LV PW Diastolic: 1.26 cm LV PW Systolic: 1.25 cm Cardiac Output: 2.72 l/min AO Root Dimension: 2 cm LA Dimension: 5.1 cm LA volume: 48 ml RV Base: 5.4 cm LVOT: 1.7 cm RV Mid: 5.1 cm LVOT VTI: 16.2 cm RV Length: 7.3 cm LV Stroke volume: 36.75 ml TDI-S': 7.4 cm/s Doppler Measurements AV Peak Velocity: 1.65 m/s MV Peak E-Wave: 1.11 m/s AV Peak Gradient: 10.89 mmHg AV Mean Gradient: 6 mmHg MV P1/2t: 61 msec LVOT Peak Velocity: 0.84 m/s TR Velocity:2.08 m/s PV Peak Velocity: 1.08 m/s TR Gradient:17.31 mmHg PV Peak Gradient: 4.67 mmHg Estimated RAP:10 mmHg Estimated PASP: 27.31 mmHg Estimated RVSP: 27 mmHg A' Lateral Velocity: 0.04 m/s E' Septal Velocity: 0.05 m/s E' Lateral Velocity: 0.1 m/s MV E/E' Ratio: 10.7 Findings Left Ventricle Mild septal left ventricular hypertrophy. Diastolic function indeterminate due to patient's arrhythmia. Right Ventricle Mildly dilated right ventricle. Left Atrium The left atrium is mildly dilated by LA volume index measurement. Right Atrium The right atrium is mildly dilated. IVC measures 1.57 cm with inspiratory collapse. Device lead seen in the right atrium. Mitral Valve Mild degenerative changes of the MV. Mild mitral annular calcification. Aortic Valve Moderate AV sclerosis. Tricuspid Valve There is moderate pulmonary hypertension. The pulmonary pressure (RVSP) is 49 mmHg. Moderate TR. Pulmonic Valve Mild pulmonic valve regurgitation by color Doppler. Pericardial Effusion No evidence of pericardial effusion. Miscellaneous Visualized portions of the aortic root and ascending aorta appear normal in size. Pleural Effusion No evidence of pleural effusion. Signature dtt: LEIDY RUDD dtd: 07/21/16 4929 Physician Self Edit
--- NOTE | ~2016-07-20 | HP ---
PATIENT'S NAME: NORMA PAEZ [facility] AGE: 71 Y [address] ROOM: [place] [address] LOCATION: [facility] ADMIT DATE: 07/20/2016 History & Physical DISCHARGE DATE: FAMILY PHYSICIAN: OLGA ELISE MD ATTENDING PHYSICIAN: LORIE BAILEY DATE OF SERVICE: HISTORY OF PRESENT ILLNESS: Ms. Paez is a 71-year-old female, who presents (accompanied by her ) to the [facility] Emergency Room by ambulance with a chief complaint of right hip pain. The patient tripped and fell at home at approximately 4 p.m. She was unable to get up because of right hip pain. She and her called an ambulance. She localizes the pain to the groin. She denies pain elsewhere as a result of the incident. She denies history of preexisting right hip pain. She denies pain in her other 3 extremities as a result of the incident. She denies head trauma or loss of consciousness. She is wearing a bandage on the right zurita (a 2-inch square Mepilex type dressing). She states that this is from a recent unspecified "blister." She denies history of infection at the right zurita. Her past orthopedic history is significant for bilateral wrist fractures (treated by me). She states that she has recovered excellent function of both wrists. She states that both wrists are pain-free. PAST SURGICAL HISTORY: Appendectomy, open reduction and internal fixation of right distal radius, cataract, pacemaker placement, coronary artery stent placement, cholecystectomy, and peritoneal dialysis catheter placement. ACTIVE MEDICAL PROBLEMS: Coronary artery disease, hypertension, dyslipidemia, atrial fibrillation, congestive heart failure, pulmonary hypertension, diabetes mellitus, end-stage renal disease (on peritoneal dialysis), depression and anxiety. SOCIAL HISTORY: . Lives in a handicap accessible home with her . Nonsmoker. Her is present and appropriately concerned. PRESENT MEDICATIONS: Are as specified on the MAR. Present medications include Eliquis. REVIEW OF SYSTEMS: She denies chest pain or shortness of breath. She denies history of deep venous thrombosis. PATIENT'S NAME: NORMA PAEZ [facility] AGE: 71 Y [address] ROOM: [place] [address] LOCATION: [facility] ADMIT DATE: 07/20/2016 History & Physical DISCHARGE DATE: FAMILY PHYSICIAN: OLGA ELISE MD ATTENDING PHYSICIAN: LORIE BAILEY ALLERGIES: TEGAN AND CHRISTEN. PHYSICAL EXAMINATION: GENERAL: Alert, oriented, well-hydrated, well-nourished, pleasant, cooperative female, who is in no distress. VITAL SIGNS: Respiratory rate 16 and nonlabored. EXTREMITIES: There is no leg length discrepancy. There is no peripheral edema in either lower extremity. There is pain with passive range of motion of the right hip. There is no pain with passive range of motion of the left hip. There is tenderness at the right greater trochanter. There is no tenderness at the left greater trochanter. There is no tenderness at either knee. She is able to actively dorsiflex and plantar flex the right ankle with 4/5 motor strength. 1+ dorsalis pedis pulse on the right. Examination of both upper extremities demonstrate painless, unrestricted active range of motion of all joints. There is a well-healed longitudinal volar scar at the right wrist. There is no swelling, tenderness, or deformity at either wrist. RADIOGRAPHS: Right hip radiographs demonstrate a nondisplaced intertrochanteric fracture. There is no hardware. There is no lytic lesion. There is no significant right hip joint space narrowing. IMPRESSION: Nondisplaced right hip intertrochanteric fracture. RECOMMENDATIONS: I have discussed operative and nonoperative options. I have discussed potential adverse sequelae of the injury itself. I have recommended internal fixation with an intramedullary device. I have discussed technical aspects of surgery as well as risks and limitations thereof as well as potential adverse sequelae of the injury itself. We have specifically reviewed risks and implications of infection, deep venous thrombosis, pulmonary embolism, mortality, malunion, nonunion, avascular necrosis, blood transfusion risks, as well as potential need for salvage with hip arthroplasty. I have informed the patient and her to expect 2 months of restricted weightbearing. She has been placed at bedrest. Mechanical DVT prophylaxis and incentive spirometry have been initiated. Internal Medicine consultation has been requested. We will proceed to the operating room tomorrow (pending operating room availability and medical clearance). PATIENT'S NAME: NORMA PAEZ [facility] AGE: 71 Y [address] ROOM: [id number] [place] [id number] LOCATION: [facility] ADMIT DATE: 07/20/2016 History & Physical DISCHARGE DATE: FAMILY PHYSICIAN: OLGA ELISE MD ATTENDING PHYSICIAN: LORIE BAILEY I have explained to the patient that my partner (he was a trauma expert) may be available to care for her fracture sooner than I could, and I have offered her this option. MD JOVANA MEDRANO/modl /[id number] D: [id number] T: [id number] HISTORY & PHYSICAL
--- NOTE | ~2016-07-20 | OR ---
[facility] 71 Y [address] ROOM: [place] [address] LOCATION: [facility]ICU ADMIT DATE: 07/20/2016 OR/Procedure Report DISCHARGE DATE: FAMILY PHYSICIAN: OLGA ELISE MD ATTENDING PHYSICIAN: LORIE BAILEY SURGEON: Lorie Bailey MD CATERING ADMINISTRATIVE ASSISTANT: DATE OF PROCEDURE: 07/22/2016 PREOPERATIVE DIAGNOSES: 1. Intertrochanteric fracture right hip. 2. Renal insufficiency. 3. Diabetes mellitus. POSTOPERATIVE DIAGNOSES: 1. Intertrochanteric fracture right hip. 2. Renal insufficiency. 3. Diabetes mellitus. PROCEDURE PERFORMED: Open reduction and internal fixation of right hip intertrochanteric fracture with intramedullary device (gamma nail). ANESTHESIA: General endotracheal anesthesia. ESTIMATED BLOOD LOSS: 100 mL. IMPLANTS: Synthes TFN-A 11 mm, 125-degree nail with 90 mm lag screw and 40 mm distal interlocking screw. DRAINS: None. SPECIMEN: None. COMPLICATIONS: None. INDICATION FOR PROCEDURE: Please refer to my separately dictated consultation note. The patient presents with a right hip intertrochanteric fracture. Operative and nonoperative options have been reviewed. Potential adverse sequelae of the injury itself have been reviewed. Risks, benefits, limitations, and indications for surgery have been thoroughly reviewed and informed consent has been granted. We have specifically reviewed risks and implications of the following: infection, malunion, nonunion, deep venous thrombosis, pulmonary embolism, mortality, neurovascular complications, blood transfusion risks, decubitus ulcer formation, pneumonia, avascular necrosis, and the potential need for further surgery (including the potential need for [facility]: 71 Y [address] ROOM: [address] [place] [id number] LOCATION: [facility]ICU ADMIT DATE: 07/20/2016 OR/Procedure Report DISCHARGE DATE: FAMILY PHYSICIAN: OLGA ELISE MD ATTENDING PHYSICIAN: LORIE BAILEY salvage with hip hemiarthroplasty versus total hip arthroplasty). We have discussed the necessity for 2 months of restricted weightbearing postoperatively. A preoperative internal medicine consultation has been obtained, and the patient has been medically cleared for surgery. DESCRIPTION OF PROCEDURE: The patient was positioned supine on the fracture table after administration of anesthesia and prophylactic antibiotics. The correct side and anticipated procedure were confirmed via a verbal timeout including myself, the night shift manager, and the circulating nurse. A well-padded groin post was placed. Both feet and ankles were well padded. The left foot was placed into a stirrup-type leg fong. The right foot was placed into a traction boot. Under fluoroscopic guidance, gentle longitudinal traction and internal rotation were applied across the fracture site through the right foot until a suitable reduction had been confirmed under AP and lateral fluoroscopic imaging. The lateral aspect of the right hip and thigh were scrubbed, prepped, and draped with vigilant sterile technique. The tip of the right greater trochanter was approached through a 5 cm direct lateral longitudinal incision. The iliotibial band was sharply divided longitudinally in line with the overlying skin incision. The tip of the right greater trochanter was palpated, and a cannulated awl was utilized to access the intramedullary canal of the proximal femur through the tip of the right greater trochanter. A ball tipped guidewire was placed through the awl and across the fracture site under fluoroscopic guidance, and the awl was subsequently removed. The cannulated entrance reamer was utilized through the appropriate soft tissue guide. The gamma nail was seated to the appropriate depth over the guidewire, and the guidewire was extracted. Fluoroscopic imaging confirmed appropriate position of the gamma nail. The outrigger guide and guide cannula were subsequently utilized to place a threaded-tipped guidewire centrally within the right femoral head and neck through a separate direct lateral 2 cm longitudinal incision. Appropriate position of the guidewire was confirmed under AP and lateral fluoroscopic imaging. Appropriate depth for the lag screw was measured. The cannulated reamer was set to the appropriate depth and fully seated through the appropriate soft tissue guide. The lag screw was seated to the appropriate depth under AP and lateral fluoroscopic guidance. The anti-rotational set screw was deployed. The outrigger guide and cannula were subsequently utilized to place the distal interlocking screw through a separate 5 mm direct lateral longitudinal incision. PATIENT'S NAME: NORMA PAEZ [facility] AGE: 71 Y [address] ROOM: [place] [address] LOCATION: [facility] ADMIT DATE: 07/20/2016 OR/Procedure Report DISCHARGE DATE: FAMILY PHYSICIAN: OLGA ELISE MD ATTENDING PHYSICIAN: LORIE BAILEY AP, lateral, and oblique fluoroscopic imaging of the right hip and right proximal femur confirmed appropriate position of all hardware and maintenance of an appropriate reduction of the fracture. Each of the 3 incisions was thoroughly irrigated with bacteriostatic saline lavage. The fascia was closed with simple deep interrupted 0 Vicryl sutures. Each of the incisions was closed with superficial buried interrupted 2-0 Vicryl sutures and surgical ang. The dressings consisted of Xeroform gauze, sterile gauze, and occlusive tape. There were no complications. The patient was carefully transferred off the fracture table and transported to the postanesthesia care unit in stable condition. LORIE BAILEY MD JMW/modl /[id number] d: 07/22/16 1830 t: 07/23/16 1751, OPERATIVE SUMMARY
--- NOTE | ~2016-07-20 | ECHO ---
Transthoracic Echocardiography Report (TTE) Demographics Patient Name NORMA PAEZ Date of Study 07/24/2016 Patient Number [id number] Visit Number [id number] Date of 1945 Room Number G6206 Gender Female Number Age 71 year(s) Referring Miguel Becerril Public Address Systems Mechanic Cathi Renee Physician [facility] Physician Interpreting Rajni Stover MD Cutter Grinder Operator Physician Supervising Ordering MD/MLP Physician Nurse Stress Managing Member Conclusions Contractility Score Summary Normal Left Ventricular contractility was noted. Summary The estimated left ventricular ejection fraction is 55%. Diastolic function indeterminate due to patient's arrhythmia. Severe concentric left ventricular hypertrophy. Mildly dilated right ventricle. The right atrium is mildly dilated. Mild mitral regurgitation by color Doppler. Mild mitral annular calcification. Moderate tricuspid regurgitation by color Doppler. There is severe pulmonary hypertension. The pulmonary pressure (RVSP) is 56 mmHg. Mild pulmonic valve regurgitation by color Doppler. Procedure Type of Study TTE procedure:2D Echocardiogram. Procedure Date Date: 07/24/2016 Start: 01:03 PM Study Location: Inpatient Portable Technical Quality: Good visualization Appropriate Use Criteria: 9 Patient Status: Routine HR: 74 bpm BP: 76/38 mmHg Allergies - Other:(Sitagliptin). M-Mode/2D Measurements LV Diastolic Dimension: 4.38 cm LV Systolic Dimension: 3.17 cm LV Septum Diastolic: 1.55 cm LV PW Diastolic: 1.59 cm AO Root Dimension: 1.8 cm Cardiac Output: 5.81 l/min AV Cusp Separation: 1.5 cm RV Diastolic Dimension: 3.83 cm LA volume: 51 ml LVOT: 2 cm RV Base: 4.1 cm LVOT VTI: 25 cm RV Mid: 4.1 cm LV Stroke volume: 78.5 ml TAPSE: 1.75 cm TDI-S': 9.21 cm/s Doppler Measurements AV Peak Velocity: 2.46 m/s MV Peak E-Wave: 1 m/s AV Peak Gradient: 24.21 mmHg AV Mean Gradient: 12 mmHg MV P1/2t: 56 msec LVOT Peak Velocity: 1.24 m/s TR Velocity:3.39 m/s PV Peak Velocity: 1.47 m/s TR Gradient:45.97 mmHg PV Peak Gradient: 8.64 mmHg Estimated RAP:10 mmHg Estimated PASP: 55.97 mmHg Estimated RVSP: 56 mmHg A' Lateral Velocity: 0.06 m/s E' Septal Velocity: 0.07 m/s E' Lateral Velocity: 0.18 m/s Findings Left Ventricle Diastolic function indeterminate due to patient's arrhythmia. Severe concentric left ventricular hypertrophy. Right Ventricle Mildly dilated right ventricle. Left Atrium Normal left atrial size. Right Atrium The right atrium is mildly dilated. Mitral Valve Mild mitral regurgitation by color Doppler. Mild mitral annular calcification. Aortic Valve The aortic valve is mildly sclerotic. Tricuspid Valve Moderate tricuspid regurgitation by color Doppler. There is severe pulmonary hypertension. The pulmonary pressure (RVSP) is 56 mmHg. Pulmonic Valve Mild pulmonic valve regurgitation by color Doppler. Pericardial Effusion No evidence of pericardial effusion. Pleural Effusion No evidence of pleural effusion. Contractility Score LV regional wall motion:(0-Non visualized 1-Normal 2-Hypokinesis 3-Akinesis 4-Dyskinesis 5-Aneurysm) Signature dtt: Ck Urban (cardio) dtd: 07/24/16 1303 Physician Self Edit
--- NOTE | ~2016-07-20 | CON ---
PATIENT'S NAME: NORMA PAEZ [facility] AGE: 71 Y [address] ROOM: [address] [address] LOCATION: [facility] ADMIT DATE: 07/20/2016 Consultation DISCHARGE DATE: 07/31/2016 FAMILY PHYSICIAN: Julio Cesar MD ATTENDING PHYSICIAN: Willian Be REFERRING PHYSICIAN: Kingston López MD A consult for Dr. Howell. This pleasant 71-year-old lady is referred for rehab GIRP evaluation. She was admitted on 07/20/2016 with status post ORIF of the right intertrochanteric fracture secondary to an incidental fall. She has extensive history of followin. Diabetes type 2. 2. Renal insufficiency. 3. Essential hypertension. 4. She is with chronic kidney failure and on dialysis. 5. Paroxysmal atrial fibrillation, status post pacemaker placement. 6. Dyslipidemia. 7. Obstructive sleep apnea. 8. Restless legs syndrome. 9. Depression plus anxiety. 10. She is at the present time on toe-touch weightbearing on the right lower extremity. ALLERGIES: SHE IS ALLERGIC TO THE FOLLOWIN. JANUVIA. 2. PRADAXA. 3. HYDROCODONE. 4. TYLENOL. PHYSICAL EXAMINATION: GENERAL: She is alert and oriented. VITAL SIGNS: Blood pressure 102/50, temperature 97.8, pulse 74, and respirations 14. She is 5 feet and 3 inches and weighs 93 kg. EXTREMITIES: Can move bilateral upper and left lower extremities freely, however, she is guarding against movement of the right lower extremity secondary to pain. NEUROLOGIC: She is neurologically intact and within normal limits. MEDICATIONS: She is on the following medications: 1. Ephedrine hydrochloride. 2. Lactulose. PATIENT'S NAME: NORMA PAEZ [facility] AGE: 71 Y [address] ROOM: [address] [address] LOCATION: [facility] ADMIT DATE: 07/20/2016 Consultation DISCHARGE DATE: 07/31/2016 FAMILY PHYSICIAN: Julio Cesar MD ATTENDING PHYSICIAN: Willian Be 3. Hydrocortisone. 4. Benadryl. 5. NaCl 0.9%. 6. Deflex with 25% dextrose. 7. Preparation H. 8. ProAmatine. 9. Lopressor. 10. Requip. 11. Insulin detemir. 12. Eliquis. 13. Mysoline. 14. Lexapro. 15. Pepcid. 16. Fleet enema as needed. 17. Dulcolax suppository as needed. 18. Zofran. 19. MOM. 20. Tylenol. 21. Rocaltrol. 22. Lipitor. 23. Allopurinol. 24. Gentax. 25. . 26. . 27. Dextrose. 28. Glucose. 29. Sodium ferric gluconate. 30. Ferrous sulfate. She has history of: 1. Cholecystectomy. 2. Bilateral wrist surgery secondary to fractures. 3. Appendectomy. At the present time, she is able to sit on the edge of bed for 25 minutes with contact guard assistance. Plan to continue her on PT and OT. She has been initiated on both. I will take her to rehab when she is stable for intensive rehabilitation for about 2 weeks. Aiming to discharge to home at [facility]. All the above was explained to her. She verbalized understanding. Thank you for this referral. PATIENT'S NAME: NORMA PAEZ [facility] AGE: 71 Y [address] ROOM: [place] [address] LOCATION: [facility] ADMIT DATE: 07/20/2016 Consultation DISCHARGE DATE: 07/31/2016 FAMILY PHYSICIAN: Julio Cesar MD ATTENDING PHYSICIAN: Willian Be MD JEREL CRESPO/modl /[id number] d: 07/30/162100 t: 08/09/16 1540, CONSULTATION REPORT
--- NOTE | ~2016-07-20 | CON ---
PATIENT'S NAME: NORMA PAEZ [facility] AGE: 71 Y [address] ROOM: [id number] [place], [place] [address] LOCATION: G3N ADMIT DATE: 07/20/2016 Consultation DISCHARGE DATE: FAMILY PHYSICIAN: OLGA ELISE MD ATTENDING PHYSICIAN: LORIE BAILEY REFERRING PHYSICIAN: DENISE KOENIG MD CHIEF COMPLAINT: Right hip pain, status post mechanical fall. HISTORY OF PRESENT ILLNESS: This is a 71-year-old female who was at home doing laundry and she accidentally slipped and fell onto the ground landing on her right hip. She did not have any syncope or loss of consciousness and there was no head trauma and it was purely mechanical fall. She denies any chest pain, palpitation, shortness of breath, blurry vision, headache, presyncope, or palpitation prior to the fall. After the fall, she has this excruciating pain in her right hip and she could not get up. Therefore, the called the ambulance and the patient was brought in here for evaluation. Here x-ray showed that the patient was found to have high nondisplaced intertrochanteric fracture of the right femur. Regarding her baseline functional status, at baseline, her METs score is more than 4, she is physically active at baseline, can do all the house chores, and climb a flight of stairs without any chest pain or shortness of breath. The patient has multiple comorbidities, but all of which are seemed to be under good control. These problems will be discussed in the assessment and plan section. The patient denies any chest pain, shortness of breath, or palpitation at rest or on exertion. She could not remember when was the last time she had a chest pain or shortness of breath on exertion. REVIEW OF SYSTEMS: As mentioned in history of present illness. All other systems reviewed and negative except those mentioned in history of present illness. PAST MEDICAL HISTORY: 1. End-stage renal disease, on peritoneal dialysis every night for 8 hours. 2. Status post left AV fistula placement on June 03, 2016, not yet mature to be used. 3. Coronary artery disease, status post one drug-eluting stent to the LAD placed 6 years ago, and most recent cardiac catheterization was in October 15, 2014. At that time, it showed that the stent placed at the LAD was patent and still has some residual disease in the small OM branch about 70% one vessel disease, and the recommendation at that time was medical PATIENT'S NAME: NORMA PAEZ [facility] AGE: 71 Y [address] ROOM: [place] [address] LOCATION: [facility] ADMIT DATE: 07/20/2016 Consultation DISCHARGE DATE: FAMILY PHYSICIAN: OLGA ELISE MD ATTENDING PHYSICIAN: LORIE BAILEY. 4. History of chronic diastolic heart failure, last echo on [facility] was on July 04, 2015, EF was 50% with diastolic grade dysfunction 3 with moderate pulmonary hypertension of 49 mmHg. 5. Status post pacemaker implantation, secondary to sick sinus syndrome in the past. 6. History of paroxysmal atrial fibrillation, on Eliquis, last dose was this morning on July 20, 2016. 7. Hypertension. 8. Hyperlipidemia. 9. Obstructive sleep apnea, not on home CPAP due to the patient's preference. 10. Diabetes type 2. 11. Restless legs syndrome. 12. Depression. 13. Anxiety disorder. ALLERGIES: JANUVIA, WHICH CAUSES PANCREATITIS, PRADAXA, WHICH CAUSES BURNING SENSATION IN THE LEGS, AND ALSO HYDROCODONE COMBINATION WITH TYLENOL, WHICH CAUSES PRURITUS. HOME MEDICATIONS: Currently, it is being reconciled. SOCIAL HISTORY: The patient denies any cigarette, alcohol, or illegal drug use. At baseline, the patient does not ambulate with any walker or cane. PAST SURGICAL HISTORY: 1. Status post drug-eluting stent x1 to the LAD 6 years ago. 2. Status post pacemaker implantation, secondary to sick sinus syndrome 6 years ago. 3. Status post cholecystectomy. 4. Status post appendectomy. 5. Status post bilateral wrist fracture surgery in the past. FAMILY HISTORY: Both parents from heart complication, details not clear, because the patient could not remember. They all both from heart problem at advanced age in the 90s. PHYSICAL EXAMINATION: VITAL SIGNS: At the time of my dictation, temperature 98, heart rate 68, respirations 12, blood pressure 116/69, and saturation 95% on 2 L oxygen nasal PATIENT'S NAME: NORMA PAEZ [facility] AGE: 71 Y [address] ROOM: [place] [address] LOCATION: G3N ADMIT DATE: 07/20/2016 Consultation DISCHARGE DATE: FAMILY PHYSICIAN: OLGA ELISE MD ATTENDING PHYSICIAN: LORIE BIALEY GENERAL APPEARANCE: Alert and oriented x3, in no acute distress. A very pleasant female. HEENT: Pupils equally round and reactive to light. Extraocular muscles intact. Anicteric sclerae. Nasal turbinates are normal bilaterally. Moist oral mucosa. NECK: No JVD. CARDIOVASCULAR: Regular rate and rhythm. No murmur, no rubs, no gallops. Normal S1, S2. RESPIRATORY: Clear to auscultation. No rales, no rhonchi, no wheezing, no crackles. ABDOMEN: Obese, soft, nontender, nondistended, normal bowel sounds, no hepatosplenomegaly. No palpable mass. EXTREMITIES: A +1 bilateral pitting edema in bilateral anterior calves. This is chronic at baseline. Dorsalis pedis pulses and posterior tibialis pulses +2 bilaterally present in both lower extremities. No ecchymosis in the right hip. MUSCULOSKELETAL: Pain to light touch on the right hip due to fracture. I did not examine the range of motion on the right lower extremity because of the fracture. SKIN: No cyanosis, no rash. She has a blister that is covered by dressing on the right lower extremity, does not look infected. NEUROLOGICAL: Grossly nonfocal except that range of motion is not examined due to right hip fracture. LABORATORY DATA: Troponin 0.092 first set, CPK 80, pro-BNP 18,381, and CK-MB 4.7, the first set. Looking back at her baseline, troponin has always been elevated around the same range. This is from the end-stage renal disease and is expected. White blood cell 9.0, hemoglobin 10.1, hematocrit 30.7, MCV 96.2, platelet 126, glucose 199, BUN 91, creatinine 8.6, sodium 137, potassium 3.1, chloride 96, CO2 27, calcium 8.2, total protein 6.4, albumin 2.6, AST 51, ALT 56, alkaline phosphatase 251, total bilirubin 0.3, magnesium 2.4, GFR 5, and anion gap 17.1. INR 0.94, PTT 29, and prealbumin 32. IMAGING STUDIES: 1. X-ray of the pelvis on admission show high nondisplaced intertrochanteric fracture of the right femur. 2. X-ray of the right femur, official read is pending. 3. Chest x-ray, official reading is pending, on admission, based on my review, very similar to the chest x-ray back in February 2016 without significant vascular congestion. No obvious infiltrate. 4. CT scan of the pelvis, official reading is pending. 5. EKG on admission showed ventricular paced rhythm, heart rate at 70, with no acute ischemic changes, but it is difficult to be interpreted given PATIENT'S NAME: NORMA PAEZ [facility] AGE: 71 Y [address] ROOM: [place] [address] LOCATION: [facility] ADMIT DATE: 07/20/2016 Consultation DISCHARGE DATE: FAMILY PHYSICIAN: OLGA ELISE MD ATTENDING PHYSICIAN: LORIE BAILEY that the patient has a paced rhythm. ASSESSMENT AND PLAN: 1. Regarding her right nondisplaced intertrochanteric fracture of the right femur, status post mechanical fall: Surgery per Orthopedic Surgery. 2. Regarding her preoperative medical clearance: She is medically cleared for surgery tomorrow as long as her pacemaker interrogation report and most recent officel note from Dr Urban's office were uneventful. From the guideline of the preoperative medical clearance for noncardiac surgery, in this case, Orthopedic Surgery is considered an intermediate risk, the patient currently does not have active contraindication from the guideline for Orthopedic Surgery tomorrow. I will cutdown the intravenous fluids from 80 mL/hr to 40cc/hr while npo after peritoneal dialysis. Patient is on peritoneal dialysis at night and I do not want to cause volume overload because the patient does not make any urine at all. However, if fluid rate will be increased in case she becomes hypotensive while NPO. She is requiring 2 L oxygen right now given that she has obstructive sleep apnea, but she does not use CPAP at night. Her lungs are clear. The patient does not look volume overloaded at the moment. The troponin is high, but this is at baseline, and is expected given that she had she has an end-stage renal disease, and this is expected to be high and this is around her baseline compared to her trend of troponins in the past. The patient denies any chest pain. The patient's pacemaker was already interrogated by her primary proposal analyst [address] Urban and it was normal according to the patient. Her next follow up with Dr. Urban will be in 1 year given that she has been doing very well. She denies any chest pain or shortness of breath on exertion and she does not seem to be in acute coronary syndrome or acute- on-chronic diastolic heart failure at the moment. Her METs score is more than 4. The patient took Eliquis this morning and surgery is planned for tomorrow at around 5 p.m.; and according to the patient, Orthopedic Surgery is already aware of the Eliquis and is okay with surgery tomorrow afternoon around 5 p.m. I will hold Eliquis until after the surgery and defer to Orthopedic Surgery when to resume the Eliquis. Watch her closely, continue oxygen nasal cannula at night for her sleep apnea, and titrate to keep saturation more than 94%. Currently she is cleared for surgery as long as her hypokalemia is replaced and if her most recent office visit note from Dr. Urban and pacemaker interrogation report are uneventful. As mentioned before, iv fluid rate will be adjusted if she develops hypotension while NPO. 3. Regarding her end-stage renal disease, on peritoneal dialysis: I already spoke to the on-call Nephrology physician orthopedic assistant and already arranged the dialysis tonight for the patient. The patient will be getting her usual peritoneal dialysis tonight for 8 hours. According to the dialysis nurse is scheduled to remove around 900 mL. 4. Regarding her hypokalemia: She is ESRD on dialysis, want to be careful with the potassium, but given that it is low, I am going to replace it with the potassium chloride p.o. 40 mEq one dose right now followed by 20 mEq in 4 hours. I will be checking another basic metabolic panel tomorrow after the dialysis to make sure that the potassium is normal. It is important to keep the potassium above the normal range, ideally above 4, PATIENT'S NAME: NORMA PAEZ [facility] AGE: 71 Y [address] ROOM: [address] [address] LOCATION: [facility] ADMIT DATE: 07/20/2016 Consultation DISCHARGE DATE: FAMILY PHYSICIAN: OLGA ELISE MD ATTENDING PHYSICIAN: LORIE BAILEY given that she does have a history of paroxysmal atrial fibrillation. Magnesium should be kept above 2, which she is already at goal. I will put a Nephrology consult given that she is on peritoneal dialysis qpm for 8 hours. 5. Regarding her sick sinus syndrome, status post pacemaker implantation in the past 6 years ago: Pacemaker was already checked and interrogated by her primary proposal analyst 2 weeks ago and it was normal. I will request a report from the Dr. Urban's office tomorrow just to confirm that the pacemaker was normal 2 weeks ago. 6. Regarding her chronic diastolic heart failure: The patient does not look volume overloaded. For that reason and to prevent her to going to volume overload because she does not make any urine at all, I am going to discontinue the intravenous fluids currently at 80 mL/hr while she is getting peritoneal dialysis and restart at 40cc/hr while NPO and after peritoneal dialysis. I am going to hold the Bumex and also hold the torsemide given that the patient does not make any urine. I am going to hold those diuretics to give more room to the blood pressure for peritoneal dialysis. IV fluids rate will be adjusted if her blood pressure becomes low while NPO. 7. Regarding her paroxysmal atrial fibrillation, on Eliquis and metoprolol: Continue metoprolol with holding parameters and hold Eliquis until after the surgery and defer to Orthopedic Surgery when to resume Eliquis. 8. Regarding her hypertension: Continue metoprolol with holding parameter. 9. Regarding her hyperlipidemia: Continue her Lipitor home-dose. 10. Regarding her obstructive sleep apnea: She does not use CPAP at night per her preference. Continue oxygen nasal cannula titrate to keep the saturation more than 94%. 11. Regarding her diabetes type 2: The patient uses glimepiride PO BID and recently she has been prescribed glargine subcutaneous insulin 10 units every morning and lispro ACHS, but she has not used the glargine or lispro yet. Will hold glimepiride and use lispro Q6H low dose and 5 units of glargine SC qpm. Titrate as needed. No HBa1c checke is needed as patient she she had a recent HbA1c checked. Continue diabetic diet while she is eating. 12. Regarding her restless legs syndrome: Continue the home ropinirole. 13. Regarding her deep vein thrombosis prophylaxis: Foot pump per Orthopedic Surgery. PATIENT'S NAME: NORMA PAEZ [facility] AGE: 71 Y [address] ROOM: [id number] [place], [place] [address] LOCATION: [facility] ADMIT DATE: 07/20/2016 Consultation DISCHARGE DATE: FAMILY PHYSICIAN: OLGA ELISE MD ATTENDING PHYSICIAN: LORIE BAILEY 14. Regarding her history of coronary artery disease, status post one drug- eluting stent to the left anterior descending 6 years ago: She had a recent echo and the recent cardiac cath performed. Refer to the past medical history section above for details. Currently, the patient does not appear to be in acute coronary syndrome. No chest pain. EKG is paced. Troponin is elevated, but this is at her baseline and is from the end- stage renal disease. No chest pain nor dyspnea. The patient saw her proposal analyst [address] Urban and everything was normal with a good checkup and next appointment is in 1 year according to patient. I will request the pacemaker interrogation report from Dr. Urban's office tomorrow to make sure the pacemaker was interrogated and it was normal. I will also get most recent office note from Dr Urban to make sure everything was fine. The patient says that it was checked 2 weeks ago and it was normal. 15. Further plan depends on clinical course. Time spent on the day of consultation 45 minutes including chart review, interviewing the patient, examining the patient, addressing all the questions and concerns that the patient had, and going over the plan of care with the patient and nurses. Further plan of care will depend on clinical course and by provider that will be taking over the care on 07/21/16 at 8 AM when shift changes. DENISE KOENIG MD CC/modl /[id number] d: 07/21/16 0237 t: 08/03/16 2144, CONSULTATION REPORT
--- NOTE | ~2016-07-20 | ER ---
PATIENT'S NAME: NORMA PAEZ [facility] AGE: 71 Y [address] ROOM: [place] [address] LOCATION: [facility] ADMIT DATE: 07/20/2016 ER/Outpatient Report DISCHARGE DATE: FAMILY PHYSICIAN: OLGA ELISE MD ATTENDING PHYSICIAN: LORIE BAILEY TIME SEEN: 1720 hours. HISTORY OF PRESENT ILLNESS: The patient is a 71-year-old female, who was brought in by EMS. The patient was folding laundry when she caught her foot causing her to fall. She presents with right hip pain. PAST MEDICAL HISTORY: Insulin-dependent diabetes, coronary artery disease, chronic renal failure with peritoneal dialysis. ALLERGIES: PRADAXA AND JANUVIA. CURRENT MEDICATIONS: See her copied list. SURGERIES: Include pacemaker placements, stents, appendectomy, and cholecystectomy. SOCIAL HISTORY: She is . Nonsmoker. Denies alcohol use. REVIEW OF SYSTEMS: HEAD/EENT: Denied any head or neck pain. RESPIRATORY: No shortness of breath. No cough. CARDIOVASCULAR: No recent chest pain. GASTROINTESTINAL: No nausea, vomiting. GENITOURINARY: She does have some urine output. PHYSICAL EXAMINATION: VITAL SIGNS: Blood pressure was 96/44; temperature 97.8; respiratory rate 16; pulse 72; oxygen saturation was 85%, but she was given fentanyl on the way to the hospital. GENERAL APPEARANCE: White female. She appears older than her stated age. HEAD/EENT: She had no scalp tenderness. No cervical tenderness. LUNGS: Breath sounds are diminished. HEART: Heart tones are distant. PATIENT'S NAME: NORMA PAEZ [facility] AGE: 71 Y [address] ROOM: [address] [address] LOCATION: [facility] ADMIT DATE: 07/20/2016 ER/Outpatient Report DISCHARGE DATE: FAMILY PHYSICIAN: OLGA ELISE MD ATTENDING PHYSICIAN: LORIE BAILEY ABDOMEN: Soft. Nontender. EXTREMITIES: Lower had no significant shortening or rotation. She was somewhat tender in the right inguinal area. X-RAYS: Questionable fracture of the femoral neck and greater trochanter. CT of her right hip did verify a high trochanteric, nondisplaced fracture of her right hip. ASSESSMENT: 1. Ground-level fall. 2. High right trochanteric fracture, nondisplaced right hip. 3. Chronic renal failure. 4. Coronary artery disease. 5. Insulin-dependent diabetes mellitus. PLAN: Dr. Bailey consulted who agreed to see the patient here in the emergency room for admission. The patient also referred to the hospital service for medical clearance. LEAH VILLASEÑOR FOR MD ALFONSO GO/fernando /[id number] d: 07/21/16137 t: 08/03/1612, OUTPATIENT REPORT
--- NOTE | ~2016-07-20 | DS ---
PATIENT'S NAME: NORMA PAEZ [facility] AGE: 71 Y [address] ROOM: [place] [address] LOCATION: [facility] ADMIT DATE: 07/20/2016 Discharge Summary DISCHARGE DATE: 07/31/2016 FAMILY PHYSICIAN: Julio Cesar MD ATTENDING PHYSICIAN: Willian Be IDENTIFICATION: This is a 71-year-old female. PRIMARY DIAGNOSIS: Intertrochanteric fracture of the right hip. SECONDARY DIAGNOSES: 1. Diabetic type 2. 2. Hypertension. 3. Chronic end-stage renal insufficiency. 4. Coronary artery disease. 5. Atrial fibrillation. 6. Hypertension. 7. Obstructive sleep apnea with CPAP. PROCEDURE PERFORMED: Open reduction and internal fixation of the right hip intertrochanteric fracture with intramedullary device. HISTORY: The patient is a 71-year-old female, who presented to the [facility] Emergency Room by ambulance after she tripped and fell at home. The patient was folding laundry when she caught her foot causing her to fall and suffered the fracture at home. Please refer to her consultation notes as well as her admission history and physical. HOSPITAL COURSE: The patient underwent the above-specified procedure on 07/22/2016 without complications. General endotracheal anesthesia was utilized. She received 24 hours of perioperative prophylactic antibiotics. She remained hemodynamically stable and neurovascularly intact throughout her entire hospital course. Her postoperative deep venous thrombosis prophylaxis consisted of Eliquis, early mobilization, and pneumatic compression devices. She received daily physical therapy for gait training, and transfer training, and progressed decently in physical therapy on her date of discharge of 07/31/2016. On the day of discharge, the incisions of her hip were healing well and showed no signs of infection. She continued her peritoneal dialysis throughout her stay in the hospital. DISPOSITION: [facility]. DISCHARGE DIET: ADA. DISCHARGE ACTIVITY: She is to be strict toe-touch weightbearing of the right PATIENT'S NAME: NORMA PAEZ [facility] AGE: 71 Y [address] ROOM: [place] [address] LOCATION: [facility] ADMIT DATE: 07/20/2016 Discharge Summary DISCHARGE DATE: 07/31/2016 FAMILY PHYSICIAN: Julio Cesar MD ATTENDING PHYSICIAN: Willian Be lower extremity. There is to be no right hip strengthening or range of motion exercises. There is to be no dressing changes. She is to notify Dr. Be immediately if she experiences increased pain, fevers, chills, erythema, or drainage. DISCHARGE MEDICATIONS: 1. Eliquis 5 mg 1/2 tablet p.o. twice daily for postoperative DVT prophylaxis and for atrial fibrillation. 2. Acetaminophen 500 mg 1 to 2 tabs p.o. every 6 hours p.r.n. for pain. 3. She was then instructed to continue all her other pre-admission medications as instructed by her Internal Medicine doctor. FOLLOWUP: Followup appointment is to be one week after discharge from [facility] for her initial postoperative evaluation with x-rays of the hip at that time. AUDRA MALAVE PA-C FOR MD PATRICK MEDRANO/fernando /[id number] d: 08/25/16 0418 t: 08/30/16 0900, DISCHARGE SUMMARY
--- NOTE | ~2016-07-20 | CON ---
PATIENT'S NAME: NORMA PAEZ [facility] AGE: 71 Y [address] ROOM: G3306 [place], [place] [address] LOCATION: G3N ADMIT DATE: 07/20/2016 Consultation DISCHARGE DATE: FAMILY PHYSICIAN: OLGA ELISE MD ATTENDING PHYSICIAN: LORIE BAILEY Corrected patient account information per operations 07/27/2016 AOREFERRING PHYSICIAN: DENISE KOENIG MD HISTORY OF PRESENT ILLNESS: This is a 71-year-old female, well known to Dr. Urban with a history of chronic atrial fibrillation and sick sinus syndrome, status post pacemaker implantation. She also has a history of sleep apnea. She was admitted to the hospital after a fall when she sustained a right hip fracture. She sustained a nondisplaced right hip intertrochanteric fracture and wrist, and is now post ORIF of the right hip with intramedullary device and nail. She denies feeling lightheaded with this fall. She denied any chest pain or shortness of breath. Unfortunately, she ended up in the ICU, and is on Levophed due to hypotension. She denies any problems with shortness of breath. She denied orthopnea or PND. She has not felt palpitations. She denies any exertional chest heaviness. PAST MEDICAL HISTORY: 1. Coronary artery disease, post PTCA stent of the LAD. 2. Chronic atrial fibrillation. 3. Sick sinus syndrome, post [employer]. Kavon pacemaker. 4. Long-term anticoagulation - Eliquis. 5. Chronic end-stage renal disease, on peritoneal dialysis. 6. Essential hypertension. 7. Hyperlipidemia. 8. Diastolic dysfunction. 9. Severe obstructive sleep apnea, using CPAP intermittently. 10. Diabetes mellitus, type 2 since 2006. 11. History of ascites in 2010. 12. Fall with bilateral fractures of the right zygoma and bilateral fractures of her wrist. 13. History of fractures of T1 and C7 from a fall. PAST SURGICAL HISTORY: 1. Liver biopsy in 2008. 2. Paracentesis in 2008. 3. Biopsy of the ovary and omentum in 2008. 4. Appendectomy in 2008. 5. Left heart catheterization on 01/06/2009 showing RCA dominant with 40% to 60% narrowing, LAD of 75%, and left main of 30%. 6. Single-chamber pacemaker implant on 01/09/2009. 7. Left heart catheterization with PTCA stenting to LAD on 04/21/2009. PATIENT'S NAME: NORMA PAEZ [facility] AGE: 71 Y [address] ROOM: [address] [place], [place] [address] LOCATION: [facility] ADMIT DATE: 07/20/2016 Consultation DISCHARGE DATE: FAMILY PHYSICIAN: OLGA ELISE MD ATTENDING PHYSICIAN: LORIE BAILEY 8. Colonoscopy in 2010. 9. Left heart catheterization showing a patent stent on 10/15/2014. 10. ORIF of right distal radial fracture and ORIF of left radial fracture in 04/2015. 11. Peritoneal dialysis catheter in 2015. 12. Fistula placement in left arm on 06/03/2016. FAMILY HISTORY: Father at the age of 80; he had heart failure. Mother at the age of 80; she also had heart failure. She has a brother and a sister, who are alive and well. Two sons are healthy. SOCIAL HISTORY: She is . She is a life-long nonsmoker. She does not drink alcohol. HOME MEDICATIONS: 1. Allopurinol 300 mg one tablet daily. 2. Atorvastatin 20 mg daily. 3. Eliquis 2.5 mg twice a day. 4. Gabapentin 300 mg one capsule orally daily. 5. Glimepiride 4 mg one capsule with breakfast once a day. 6. Metolazone 5 mg one tablet every other day. 7. Metoprolol 25 mg one-half tablet twice a day. 8. NovoLog subq per sliding scale. 9. Primidone 50 mg one tablet daily. 10. Torsemide 100 mg two tablets orally daily. 11. Vitamin D 500 mg once a day. 12. Neurontin 100 mg every night. 13. Lexapro 10 mg every day. ALLERGIES: TO HYDROCODONE, JANUVIA, AND DABIGATRAN. REVIEW OF SYSTEMS: GENERAL: She is very fatigued. HEAD: No history of headaches. EYES: No blurred vision. EARS: No problems with hearing. NOSE: No epistaxis. MOUTH: No gingival bleeding. THROAT: She denies sore throat, hoarseness, or difficulty swallowing. PULMONARY: She denies cough or hemoptysis. GASTROINTESTINAL: Negative for nausea, vomiting, or diarrhea. GENITOURINARY: Negative for urinary frequency or urgency. MUSCULOSKELETAL: She complains of pain in her right hip. Her left arm does PATIENT'S NAME: NORMA PAEZ [facility] AGE: 71 Y [address] ROOM: [address] [place] [address] LOCATION: [facility] ADMIT DATE: 07/20/2016 Consultation DISCHARGE DATE: FAMILY PHYSICIAN: OLGA ELISE MD ATTENDING PHYSICIAN: LORIE BAILEY have a fistula placed with a bruit noted. PHYSICAL EXAMINATION: VITAL SIGNS: Initially, her blood pressure was in the 70 to 80 range; she is on Levophed, which is being titrated now up to 110/70. Heart rate is in the 70s with one-to-one paced rhythm at times and chronic atrial fibrillation. GENERAL: She is very sleepy, O2 is on at 3 L per nasal cannula. She arouses easily. RESPIRATORY: Lung sounds are clear to auscultation. CARDIOVASCULAR: Regularly irregular. ABDOMEN: Soft. Bowel sounds are present. EXTREMITIES: Right hip dressing is dry and intact. Right lower extremity is swollen. LABORATORY DATA: Her troponin was 0.107 and CPK was 58. White count is 17.4, hemoglobin is 9.6, and hematocrit is 29.9 with platelets of 138. BUN was 74, creatinine was 0.8, sodium was 134, and potassium was 4.4. CK-MB was 3.6. ASSESSMENT AND PLAN: 1. Hypertension. We are going to titrate the Levophed. 2. Chronic atrial fibrillation with sick sinus syndrome. She has had runs of atrial fibrillation with rapid ventricular response. We are going to check an echocardiogram to look at her left ventricular function. 3. Severe obstructive sleep apnea. We asked her to bring in the CPAP. We would like to see her use her CPAP at current settings as is at home. The assessment, plan, history of present illness, and physical exam are per Dr. Stefani Urban. We would like to thank Dr. Bailey for allowing us to participate in the patient's care. CHLESY DEUTSCH APRN FOR MD SHEFALI CALVERT/fernando PATIENT'S NAME: NORMA PAEZ [facility] AGE: 71 Y [address] ROOM: [address] [address] LOCATION: [facility] ADMIT DATE: 07/20/2016 Consultation DISCHARGE DATE: FAMILY PHYSICIAN: OLGA ELISE MD ATTENDING PHYSICIAN: LORIE BAILEY /[id number] Corrected patient account information per operations 07/27/2016 AO d: 07/24/162111 t: 08/13/16 0922, CONSULTATION REPORT
[~2016-07-20 17:10] MED LIST changes: -ACID REDUCER10 MG PO; -ARTIFICIAL TEAR15 M2 OPHTH; -BAYER CHILD81 MG PO; -HUMALOG100 UNIT/2 SUB-Q; -NEURONTIN100 MG PO; -NOVOLOG100 UNIT/M SUB-Q; -PAXIL10 MG PO; -PEPCID20 MG PO; -PROAMATINE5 MG PO; -PROTONIX40 MG PO; -TEARS AGAIN EYE5 GM OPHTH; -TORSEMIDE100 MG PO
[2016-07-20 17:41] LABS: BASOPHIL % 0.3 %; EOSINOPHIL # 0.3 K/uL (0.0-0.5); HEMATOCRIT 30.7 % (33.0-46.0); HEMOGLOBIN 10.1 g/dL (10.0-15.0); IMMATURE GRANULOCYTE # 0.1 K/uL (0.0-0.3); IMMATURE GRANULOCYTE % 0.7 %; LYMPHOCYTE # 1.2 K/uL (0.8-4.0); LYMPHOCYTE % 13.3 %; MCH 31.7 pg (27.0-34.0); MCHC 32.9 gm/dL (32.0-36.5); MONOCYTE # 0.6 K/uL (0.0-1.0); MONOCYTE % 7.1 %; MPV 11.6 fl (9.4-12.4); NEUTROPHIL # (ANC) 6.8 K/uL (1.8-7.8); NEUTROPHIL % 75.6 %; NRBC % 0 /100WBC (0-0.00); RBC 3.19 M/uL (3.50-5.50)
[2016-07-20 17:43] LABS: MCV 96.2 fl (83.0-98.0); PLATELET COUNT 126 K/uL (150-450); RDW-CV 14.9 % (11.9-14.6)
[2016-07-20 17:57] LABS: ALBUMIN 2.6 gm/dL (3.5-5.0); ANION GAP 17.1 (10.0-19.0); CALCIUM 8.2 mg/dL (8.5-10.5); POTASSIUM 3.1 mMol/L (3.7-5.1); TOTAL PROTEIN 6.4 g/dL (6.0-8.4)
[2016-07-20 17:58] LABS: CREATININE 8.6 mg/dL (0.5-1.1); TOTAL BILIRUBIN 0.3 mg/dL (0.0-1.5)
[2016-07-20 22:09] LABS: MAGNESIUM 2.4 mg/dL (1.8-2.6)
[2016-07-20 22:50] LABS: INR - (THERAPEUTIC) 0.94 (0.92-1.07); PROTIME 9.9 SECONDS (9.8-11.4)
[2016-07-20] MEDS ORDERED: TOUJEO SOL300 UNIT/1 SUB-Q (23:31)
[2016-07-20] MEDS ORDERED: TORSEMIDE100 MG PO (23:31)
[2016-07-20] MEDS ORDERED: NOVOLOG100 UNIT/M SUB-Q (23:36)
--- NOTE | 2016-07-21 02:31 | NUR ---
Significant Event: PATIENT ALERT AND ORIENTED X 3. HYPOTENSIVE WITH SBP IN 90'S - NORMAL FOR PATIENT, MD AWARE. ON 2L O2 TO KEEP SATS >94%. NPO FOR OR. ON PERITONEAL DIALYSIS - DOES NO VOID. FISTULA PRESENT WITH THRILL AND BRUIT TO LEFT AC. SALINE LOCK PRESENT IN RIGHT AC - TO START IVF WHEN PD D/C'D THIS AM. REPOSITIONED FROM L) SIDE TO BACK Q 2 HOURS. HAS OPEN AREA ON RIGHT LOWER LEG COVERED WITH AVELYN - HAS BEEN SEEING WOC FOR WOUND. PAIN CONTROLLED WITH PERCOCET AND MORPHINE - WILL UPDATE WITH LAST TIMES. CSM'S TO RIGHT LOWER EXT WNL. ACCUCHECKS Q 6 HOURS. BMP AND MG THIS AM - TO CALL IF K+ >3.7 OR IF MG <2.0. DR. GRAJEDA TO SEE TODAY. ALSO NEED DR. PHILLIPS LAST OFFICE NOTE AND PACEMAKER INTERROGATION REPORT SENT OVER THIS AM. PLEASANT AND COOPERTIVE WITH CARES. OR THIS PM. Follow up:
--- NOTE | 2016-07-21 05:05 | NUR ---
AT 0000 BS WAS 284. PER MD ORDER 4 UNITS OF HUMALOG GIVEN. CHECKED BY ESTEE WILLINGHAM RN. AT 0500 BS WAS 207 - 2 UNITS GIVEN PER S/S. CHECKED BY ESTEE WILLINGHAM RN
[2016-07-21] MEDS ORDERED: NEURONTIN100 MG PO (07:54)
[2016-07-21] MEDS ORDERED: TEARS AGAIN EYE5 GM OPHTH (07:55)
[2016-07-21 09:16] LABS: ANION GAP 16.8 (10.0-19.0); CALCIUM 8.7 mg/dL (8.5-10.5); POTASSIUM 3.8 mMol/L (3.7-5.1)
[2016-07-21 09:17] LABS: CREATININE 8.2 mg/dL (0.5-1.1)
[2016-07-21 09:34] LABS: PERITONEAL FLUID TURBIDITY CLEAR (CLEAR)
--- NOTE | 2016-07-21 10:55 | NUR ---
Introduced self/role to patient and her [place]. She does peritoneal dialysis. She reports Dr Be feels like she will be able to go home from here. Will need crutches and a walker which they don't have. We talked about [employer] and other DME suppliers. Encouraged them to connect with [employer] tomorrow about loaning equipment as they are hard to reach on Fridays. Voiced understanding. June DME supplier list provided to them. Patient also inquired about how to change her address with Medicare. Found resources/answers online and provided her with the 3 different ways to do this. Questioning whether HHC would be needed. I will follow up with them tomorrow. Encouraged them to discuss this with Dr Be when they saw him. Added my name to her marker board, will continue to follow.
[2016-07-21 11:17] LABS: % PERITONEAL FLUID MONO/MACRO 4 % (0-0); % PERITONEAL FLUID NEUT 60 % (0-25)
--- NOTE | 2016-07-21 13:44 | NUR ---
Significant Event: AOx3. Hypotensive. 80's/30/s. NS 250ml bolus given at 1400. Now running at 75ml/hr. Turn Q2hrs. Hypoglycemis at 1100. BS was 50. Gave IV meds and raised to 149. Had PD last night. Has fistula in L) FA. Percocet given for pain. May go to OR late this afternoon. Follow up:
[2016-07-21 18:32] LABS: BASOPHIL % 0.4 %; EOSINOPHIL # 0.3 K/uL (0.0-0.5); EOSINOPHIL % 3.6 %; HEMATOCRIT 31.6 % (33.0-46.0); HEMOGLOBIN 9.9 g/dL (10.0-15.0); IMMATURE GRANULOCYTE % 0.3 %; LYMPHOCYTE # 1.5 K/uL (0.8-4.0); LYMPHOCYTE % 18.8 %; MCHC 31.3 gm/dL (32.0-36.5); MCV 99.1 fl (83.0-98.0); MONOCYTE # 0.8 K/uL (0.0-1.0); MONOCYTE % 10.4 %; MPV 11.5 fl (9.4-12.4); NEUTROPHIL # (ANC) 5.2 K/uL (1.8-7.8); NEUTROPHIL % 66.5 %; NRBC % 0 /100WBC (0-0.00); PLATELET COUNT 131 K/uL (150-450); RBC 3.19 M/uL (3.50-5.50); RDW-CV 15.2 % (11.9-14.6); WBC 7.8 K/uL (4.0-11.0)
--- NOTE | 2016-07-22 05:02 | NUR ---
Significant Event: Alert and oriented. SBP's 102-117 this shift. Sats >90% on 2L 02. On telemetry, no calls this shift. Fistula to L) arm with bruit and thrill present. PD running throughout night, dressing to PD site is CDI. Allevyn dressing to medial R) ankle is CDI. 1+ pedal pulse, otherwise CSM WNL. IV running at 70 ml/h to R) AC. Bedrest. Repositioned to L) side and back q 2 hrs. Bilateral foot pumps. Percocet given x1 this shift with effectiveness. Accuchecks q 6 hr. Last blood sugar was 169 this am. Has been NPO since [place]. Permit is signed. Checklist is started. Pt is not yet cleared by Dr. Garcia. Follow up: Clearance for surgery.
[2016-07-22 05:48] LABS: BASOPHIL % 0.4 %; EOSINOPHIL # 0.3 K/uL (0.0-0.5); EOSINOPHIL % 3.7 %; HEMATOCRIT 30.4 % (33.0-46.0); HEMOGLOBIN 9.6 g/dL (10.0-15.0); IMMATURE GRANULOCYTE % 0.5 %; LYMPHOCYTE # 1.1 K/uL (0.8-4.0); LYMPHOCYTE % 15.1 %; MCH 31.6 pg (27.0-34.0); MCHC 31.6 gm/dL (32.0-36.5); MONOCYTE # 0.8 K/uL (0.0-1.0); MONOCYTE % 10.3 %; MPV 10.5 fl (9.4-12.4); NEUTROPHIL # (ANC) 5.1 K/uL (1.8-7.8); NRBC % 0 /100WBC (0-0.00); PLATELET COUNT 110 K/uL (150-450); RBC 3.04 M/uL (3.50-5.50); RDW-CV 15.6 % (11.9-14.6); WBC 7.3 K/uL (4.0-11.0)
[2016-07-22 06:04] LABS: ALBUMIN 2.3 gm/dL (3.5-5.0); ANION GAP 16.9 (10.0-19.0); CALCIUM 8.6 mg/dL (8.5-10.5); PHOSPHORUS 5.3 mg/dL (2.5-4.9); POTASSIUM 3.9 mMol/L (3.7-5.1)
[2016-07-22 06:05] LABS: CREATININE 8.3 mg/dL (0.5-1.1)
--- NOTE | 2016-07-22 11:35 | NUR ---
PT TAKEN DOWN TO PRE-OP PER TRANSPORT TEAM.
--- NOTE | 2016-07-22 13:50 | NUR ---
PT REMAINS IN SURGERY AT 1300.
[2016-07-22 15:40] LABS: HEMATOCRIT 31.6 % (33.0-46.0)
[2016-07-22 15:42] LABS: HEMOGLOBIN 10.2 g/dL (10.0-15.0)
--- NOTE | 2016-07-22 20:41 | NUR ---
1520 PT HAS SMALL EMESIS. ZOFRAN [address]IV[address]. 1532 [address] TYLER TO ROOM ASSESSING PT, NEW ORDERS RECEIVED FOR EKG, LEVOFED, AND CALCIUM GLUCONATE. BLOOD DRAW FROM ARTERIAL LINE DONE PER PROTOCOL. FLUSHES WELL. 1534 Kellen WALLIS CRNA GIVES MORPHINE 3MG IVP FOR PAIN 1542 Kellen HOWE CRNA GIVES FENTANYL 50 MCG IVP FOR PAIN. PT DOES NOT RATE PAIN AT THIS TIME. 1555 LEVOFED INFUSION STARTED PER PUMP AT 0.05 MCG/KG/MIN IN RIGHT EJ LINE. PT HAS ANOTHER SMALL YELLOW EMESIS. PT RESTS WELL. BEAR HUGGER IN PLACE. 1600 Kellen WALLIS CRNA TO ROOM, LEVAFED INCREASED TO 0.1 MCG/KG/MIN. PT HAS NO C/O LIGHTHEADEDNESS AND OR DIZZYNESS. 1620 PHARMACY CALLED AND ASKED ABOUT INJECTION TO CALCIUM GLUCONATE. OK TO GIVE IN PERIPHERAL LINE. DOPAMINE AND LEVOFED CONTINUE TO INFUSE IN RIGHT EJ. EJ DOES OCCLUDE IF PT'S HEAD TURNS TO THE RIGHT, DR TYLER AND Kellen WALLIS CRNA AWARE. 1630 LALO SUMMERS RN STARTS 20 G INSYTE IN RIGHT FOREARM. PT TOLERATES WELL. PT HAS ANOTHER SMALL EMESIS. C/O PAIN IN RIGHT HIP. STATES PAIN MAKES HER NAUSEATED. LEVOFED INFUSION INCREASED TO 0.2MCG/KG/MIN 1642 DR TYLER NOTIFIED OF PT'S BLOOD PRESSURES, BOTH DOPAMINE, LEVOFED RATES. AND REMINDED OF IV ACCESS'. DR TYLER STATES HE WILL CALL DR CLEMONS. 1646 PHENERGAN 6.25MG IVP GIVEN FOR NAUSEA. 1649 Kellen WALLIS CRNA ASSESSES PATIENT, NO NEW ORDERS. URIAH UPDATES SPOUSE IN WAITING ROOM. CALCIUM GLUCONATE 1 GRAM IVP GIVEN AT THIS TIME 1ML/MIN. 1700 PT COLD, SATS 90%, O2 INCREASED TO 15L PER MASK. WARM BLANKET TO HEAD, O2 SAT STICKER TO FOREHEAD. PT'S FINGERS DUSKY. UNCHANGED FROM INITIAL ASSESSMENT. 1707 FENTANYL 25MCG IVP GIVEN FOR PAIN. 1708 DR LUNA TO ROOM, NO NEW ORDERS RECEIVED. DR LUNA INFORMED OF IV ACCESS. TO SEND PT TO ICU. ENVIRONMENTAL ENGINEERING PROFESSOR HAS BEEN CONTACTED EARLY DURING PT'S ADMIT TO PACU AND AM WAITING FOR ROOM TO OPEN ON ICU. DR TYLER UPDATED ON PT'S STATUS AND THAT DR NEAMU IS AT BEDSIDE. NO NEW ORDERS FROM DR TYLER. PT STATES NAUSEA IS IMPROVING AND FENTANYL HELPS PAIN TO WHERE IT IS TOLERATED. 1728 FENTANYL 25 MCG IVP GIVEN FOR PAIN. 1730 DR CLEMONS AT BEDSIDE, INFORMED OF DRIPS AND IV INFUSIONS. NO NEW ORDERS RECEIEVED. KNOWS THAT WE ARE WAITING FOR A ROOM ON ICU. 175 DR BAILEY NOTIFIED OF PT'S STATUS AND THAT SHE WILL BE SENT TO ICU. NO NEW ORDERS RECEIVED. 1756 O2 DECREASED TO 5L PER N/C. PT RESTING COMFORTABLE. SATS 94%. NO CHANGES IN BP'S. MAPS REMAIN 55-60. 1800 FAMILY UPDATED, GIVEN ICU ROOM NUMBER. SPOUSE STATES HE WILL WAIT IN ICU WAITING ROOM 1808 FENTANYL 25 MCG IVP GIVEN FOR PAIN. PT HAS ANOTHER SMALL EMESIS. NO FURTHER C/O. 1835 FENTANYL 25 MCG IVP GIVEN. PT RESTING WELL. STATES PAIN IS OK. NO FURTHER CHANGES. 1845 DR CLEMONS TO ROOM, DOPAMINE DECREASED TO 5MCG/KG/MIN, IV FLUID INCREASED TO 70ML/HR. NO FURTHER ORDERS RECEIVED. ICU READY FOR PT. MONITOR IN PLACE FOR TRANSPORT. PT TAKEN TO ROOM 6206 PER BED. PT TO ICU BED PER SLIDE BOARD AND 3X ASSIST. TOLERATED FAIRLY WITH PAIN. MONITORS CHANGED TO ICU'S MONITORS. REPORT GIVEN TO MARTY NORTH. SPOUSE IN ROOM. IV DRIPS REVIEWED. MARY ANNE RESUMES CARES AT 1915
[2016-07-23 00:50] LABS: ALBUMIN 2.3 gm/dL (3.5-5.0); ANION GAP 18.8 (10.0-19.0); CALCIUM 8.7 mg/dL (8.5-10.5); CREATININE 8.7 mg/dL (0.5-1.1); MAGNESIUM 2.1 mg/dL (1.8-2.6); PHOSPHORUS 4.9 mg/dL (2.5-4.9); POTASSIUM 3.8 mMol/L (3.7-5.1)
[2016-07-23 05:42] LABS: ANION GAP 18.4 (10.0-19.0); CALCIUM 8.8 mg/dL (8.5-10.5); POTASSIUM 4.4 mMol/L (3.7-5.1)
[2016-07-23 05:43] LABS: CREATININE 8.2 mg/dL (0.5-1.1)
[2016-07-23 05:53] LABS: BASOPHIL % 0.1 %; HEMATOCRIT 29.9 % (33.0-46.0); HEMOGLOBIN 9.6 g/dL (10.0-15.0); IMMATURE GRANULOCYTE # 0.1 K/uL (0.0-0.3); IMMATURE GRANULOCYTE % 0.5 %; LYMPHOCYTE # 0.9 K/uL (0.8-4.0); LYMPHOCYTE % 4.9 %; MCH 31.6 pg (27.0-34.0); MCHC 32.1 gm/dL (32.0-36.5); MCV 98.4 fl (83.0-98.0); MONOCYTE # 1.2 K/uL (0.0-1.0); MONOCYTE % 6.9 %; MPV 11.9 fl (9.4-12.4); NEUTROPHIL # (ANC) 15.2 K/uL (1.8-7.8); NEUTROPHIL % 87.6 %; NRBC % 0.1 /100WBC (0-0.00); RBC 3.04 M/uL (3.50-5.50); RDW-CV 15.2 % (11.9-14.6)
[2016-07-23 05:55] LABS: PLATELET COUNT 138 K/uL (150-450); WBC 17.4 K/uL (4.0-11.0)
--- NOTE | 2016-07-23 07:22 | NUR ---
Significant Event: Pt has been drowsy thoughout this shift. Oriented x3. Pupils are equal and reactive. Moves all extremities spontaneously and to command. On 5L of O2 via NC. Dopamine weened of tonight, Levo gtt running to keep MAP's greater than 60 and SBP greater than 90. Surgical sites to the R) hip dressing clean and dry. Pt still having pain to the R) hip. Denies any numbness or tingling. Follow up: Continue to ween off pressors.
--- NOTE | 2016-07-23 19:57 | NUR ---
Significant Event: PATIENT A/O, FOLLOWS COMMANDS. 6L O2 VIA NC, O2 SATS LOW 90S. BS HYPO, NO BM THIS SHIFT. EATS 25-50% OF MEALS, ASSISTS. PACED RHYTHM, CONDUCTION CHANGES SEEN ON EKG, MD AWARE. ORTHOSTATIC SBP'S FALL TO 40'S, LEVO MAXED. UP TO SIDE OF BED TO DANGLE FEET X2. RLE WARM, NO N'T NOTED, PULSES 2+. PERITONEAL DIALYSIS PER . Follow up:WILL HAVE ECHO IN AM
--- NOTE | 2016-07-24 03:55 | NUR ---
SIGNIFICANT EVENT: NO SIGNIFICANT CHANGES THROUGHOUT NIGHT. UNABLE TO WEAN LEVOPHED BELOW 0.18MCG/KG/MIN. PT REMAINS DROWSY BUT ORIENTED AND SLIGHTLY FORGETFUL. PERITONEAL DIALYSIS RUNNING. FOLLOW UP:
[2016-07-24 05:33] LABS: ANION GAP 14.9 (10.0-19.0); CALCIUM 8.8 mg/dL (8.5-10.5); POTASSIUM 3.9 mMol/L (3.7-5.1)
[2016-07-24 05:40] LABS: CREATININE 7.6 mg/dL (0.5-1.1)
[2016-07-24 05:45] LABS: BASOPHIL % 0.2 %; EOSINOPHIL # 0.5 K/uL (0.0-0.5); HEMATOCRIT 27.5 % (33.0-46.0); HEMOGLOBIN 9.1 g/dL (10.0-15.0); IMMATURE GRANULOCYTE # 0.1 K/uL (0.0-0.3); IMMATURE GRANULOCYTE % 0.5 %; LYMPHOCYTE % 7.8 %; MCH 31.8 pg (27.0-34.0); MCHC 33.1 gm/dL (32.0-36.5); MCV 96.2 fl (83.0-98.0); MONOCYTE # 0.7 K/uL (0.0-1.0); MONOCYTE % 5.2 %; MPV 11.9 fl (9.4-12.4); NEUTROPHIL # (ANC) 10.6 K/uL (1.8-7.8); NEUTROPHIL % 82.3 %; NRBC % 0 /100WBC (0-0.00); PLATELET COUNT 121 K/uL (150-450); RBC 2.86 M/uL (3.50-5.50); RDW-CV 15.3 % (11.9-14.6); WBC 12.9 K/uL (4.0-11.0)
--- NOTE | 2016-07-24 09:33 | NUR ---
A - NUT F/U. R) HIP FX. PERITONEAL DIALYSIS. DROWSY. LABS: ACCUCHECK WNL-302, NA 130, GLU 185, BUN/CR 69/7.6, ALB 2.8, WBC 12.9. MEDS: LEVEMIR, LEXAPRO, PEPCID, RENVELA, BOWEL/NAUEA. DIET: DIABETIC. INTAKE: SIPS-100%. GLUCERNA @ B NEEDS: [id number] KCAL, 62-73 G PRO D - INADEQUATE NUTRIENT INTAKE R/T DECREASED APPETITE AEB INTAKE RECORD. I - GOAL FOR INTAKE 50-75% BY NEXT ASSESSMENT. WILL INCREASE GLUCERNA TO TID. M/E - WILL MONITOR INTAKE F/U IN 3-5 DAYS.
--- NOTE | 2016-07-24 18:51 | NUR ---
SIGNIFICANT EVENT: PATIENT DROWSY AT TIMES, MORE ALERT TOWARDS THE END OF THE SHIFT THAN AT THE BEGINGING. PATIENT CONSISTENTLY OPENS EYES SPONTANEOUSLY AND TO VOICE. PUPILS EQUAL AND REACTIVE. PATIENT MAKES ALL NEEDS KNOWN. SPEECH IS SLOW. ORIENTED X3. NO FACIAL ASYMMETRY. FACIAL EDEMA NOTED, DR. GRAJEDA AWARE. NO SWALLOWING ISSUES, TOLERATES THIN LIQUIDS WELL. PATIENT MOVES ALL 4 EXTREMITIES SPONTANEOUSLY AND TO COMMANDS. SIGNIFICANT GENERALIZED WEAKNESS. EQUAL STRENGTH THROUGHOUT. PATIENT COMPLAINED OF GENERALIZED PAIN AT THE BEGINING OF THE SHIFT, RELIEF NOTED FROM TYLENOL. DENIES NUMBNESS OR TINGLING. PATIENT IS VPACED. HR CONSISTENTLY AT 74. LEVOPHED WEANED TO 0.04 MCG/KG/MIN TO KEEP MAP>60 AND SBP >90. PULSES INTACT AND PALPABLE THROUGHOUT. AFEBRILE. GENERALIZED ITCHING, BENADRYL X1 PO GIVEN. R) ART LINE INTACT. PATIENT HAS BEEN ON 3L NASAL CANNULA, SATS MID TO UPPER 90S. CARDAIAC DIET, TOLERATING WELL. NO N/V. BOWEL SOUNDS PRESENT, NO BM.CDIFF SAMPLE TO BE COLLECTED IF PATIENT HAS A BM. PERITONEAL DIALYSIS QNIGHT, NO COMPLICATIONS. NO URINE OUTPUT TODAY. PATIENT REPOSITIONED EVERY 2 HOURS. UP TO CHAIR WITH 3 PERSON ASSIST X1 WITH GAITBELT AND WALKER, REFUSED TO BE UP TO CHAIR 2ND TIME. LIFT UTILIZED TO RETURN TO BED. R) EJ INFUING NS AND LEVOPHED. FOLLOW UP: CONTINUE TO MONITOR AND WEAN OFF LEVOPHED
[2016-07-25 04:18] LABS: ANION GAP 16.2 (10.0-19.0); CALCIUM 8.4 mg/dL (8.5-10.5); POTASSIUM 4.2 mMol/L (3.7-5.1)
[2016-07-25 04:21] LABS: CREATININE 7.3 mg/dL (0.5-1.1)
[2016-07-25 04:27] LABS: BASOPHIL % 0.2 %; EOSINOPHIL # 0.5 K/uL (0.0-0.5); EOSINOPHIL % 4.8 %; HEMATOCRIT 23.1 % (33.0-46.0); IMMATURE GRANULOCYTE % 0.4 %; LYMPHOCYTE # 0.7 K/uL (0.8-4.0); LYMPHOCYTE % 7.4 %; MCH 31.8 pg (27.0-34.0); MCHC 32.9 gm/dL (32.0-36.5); MCV 96.7 fl (83.0-98.0); MONOCYTE # 0.6 K/uL (0.0-1.0); MONOCYTE % 6.7 %; MPV 11.8 fl (9.4-12.4); NEUTROPHIL # (ANC) 7.7 K/uL (1.8-7.8); NEUTROPHIL % 80.5 %; NRBC % 0 /100WBC (0-0.00); PLATELET COUNT 98 K/uL (150-450); RBC 2.39 M/uL (3.50-5.50); RDW-CV 14.9 % (11.9-14.6); WBC 9.6 K/uL (4.0-11.0)
[2016-07-25 04:30] LABS: HEMOGLOBIN 7.6 g/dL (10.0-15.0)
[2016-07-25 06:13] LABS: BICARBONATE 26.4 mmol/L (18.0-23.0); PCO2 55 mmHg (35-45); PO2 126 mmHg (80-90)
--- NOTE | 2016-07-25 06:46 | NUR ---
Significant Event: DROWSY OVERNIGHT. MORE DIFFICULT TO WAKE THIS AM. NOTIFIED DR. KOENIG. HE ASSESSED PATIENT, EQUAL STRENGTH. CLEAR SPEECH, JUST DROWSY AND FALLS ASLEEP DURING ASSESSMENT. CHECK ABG AND AMMONIA LEVELS. NO NEW ORDERS AFTER RESULTS OBTAINED AND REPORTED. V PACED. LEVO AT 0.04MCG/KG/MIN. AFEBRILE. 2L O2 WHEN NOT ON CPAP. WHEN ON CPAP HAD TO INCREASE O2 TO 5L D/T DESATTING TO LOW 80'S. LUNG SOUND CLEAR/DIM. POOR PO INTAKE. NO BM. DID NOT HAVE TO TREAT ACCUCHECKS. NO UOP. ON PD CYCLER OVER NIGHT PER DIALYSIS NURSE. C/O PAIN IN R) HIP. PO TYLENOL GIVEN X2. BATH COMPLETE Follow up: WEAN LEVO.
[2016-07-25 08:18] LABS: HEMATOCRIT 22.7 % (33.0-46.0); MCH 32.2 pg (27.0-34.0); MCHC 33.5 gm/dL (32.0-36.5); MCV 96.2 fl (83.0-98.0); MPV 12.4 fl (9.4-12.4); RBC 2.36 M/uL (3.50-5.50); RDW-CV 15.1 % (11.9-14.6); WBC 8.3 K/uL (4.0-11.0)
[2016-07-25 08:24] LABS: HEMOGLOBIN 7.6 g/dL (10.0-15.0)
--- NOTE | 2016-07-25 17:18 | NUR ---
SIGNIFICANT EVENT: PATIENT MUCH MORE ALERT NOW THAN AT THE BEGINING OF THE SHIFT. OPENS EYES SPONTANEOUSLY AND TO VOICE. PUPILS EQUAL AND REACTIVE. PATIENT ANSWERS ORIENTATION QUESTIONS APPROPRIATELY. SPEECH IS SLOW, NO FACIAL ASYMMETRY NOTED. PATIENT COMPLAINED OF BACK PAIN WHEN SITTING IN CHAIR, MD AWARE, IBUPROFEN ORDERED, PATIENT RETURNED TO BED AND RELIEF NOTED, PATIENT REFUSED IBUPROFEN. PATIENT DENIES NUMBNESS OR TINGLING. PATIENT MOVES ALL 4 EXTREMITIES SPONTANEOUSLY AND TO COMMANDS. SIGNIFICANT WEAKNESS NOTED THROUGHOUT, EQUAL STRENGTH, HIP PRECAUTIONS CONTINUED. PATIENT HAS BEEN IN V-PACED RHYTHM, HR CONSISTENTLY 74. PULSES PALPABLE THROUGHOUT. AFEBRILE. BP STABLE, SBP 90-100, MAP>60. LEVOPHED OFF. TOTAL OF 500 ML NS BOLUS GIVEN TODAY. PATIENT WEANED TO 1 L NASAL CANNULA, SATS MID TO LOWER 90S. INCENTIVE SPIROMETER UTLIZED HOURLY WITH REMINDERS. BOWEL SOUNDS PRESSENT, NO BM. DECREASE IN APETITE NOTED. NO URINE OUTPUT. NO NEW SKIN ISSUES NOTED. ALL EXTREMITIES ELEVATED AT ALL TIMES. PATIENT REPOSITIONED EVERY 2 HOURS. FOLLOW UP: CONTINUE TO MONITOR
--- NOTE | 2016-07-26 04:39 | NUR ---
Significant Event: MORE DROWSY OVERNIGHT. DOES WAKE AND SAY A FEW WORDS AND FOLLOWS COMMANDS. VSS. 1-3L O2, CPAP AT TIMES OVERNIGHT. PATIENT REMOVES AT TIMES. POOR PO INTAKE. NO BM. OFFERED LAXATIVES, PATIENT REFUSED. NO UOP. PD CONNECTED PER . DENIES PAIN. REFUSED BATH. TURNED Q2HR. CHANGED TO PCU STATUS. Follow up: CONTINUE TO MONITOR. TRANSFER WHEN AVAILABLE.
[2016-07-26 05:58] LABS: BASOPHIL % 0.1 %; EOSINOPHIL # 0.3 K/uL (0.0-0.5); EOSINOPHIL % 4.6 %; HEMATOCRIT 23.1 % (33.0-46.0); IMMATURE GRANULOCYTE % 0.4 %; LYMPHOCYTE # 0.6 K/uL (0.8-4.0); MCV 97.1 fl (83.0-98.0); MONOCYTE # 0.6 K/uL (0.0-1.0); MONOCYTE % 8.6 %; MPV 11.1 fl (9.4-12.4); NEUTROPHIL # (ANC) 5.3 K/uL (1.8-7.8); NEUTROPHIL % 77.3 %; NRBC % 0 /100WBC (0-0.00); RBC 2.38 M/uL (3.50-5.50); RDW-CV 15.1 % (11.9-14.6); WBC 6.9 K/uL (4.0-11.0)
[2016-07-26 06:01] LABS: HEMOGLOBIN 7.5 g/dL (10.0-15.0); MCH 31.5 pg (27.0-34.0); MCHC 32.5 gm/dL (32.0-36.5); PLATELET COUNT 121 K/uL (150-450)
[2016-07-26 06:18] LABS: ALK PHOS 168 IU/L (33-138); ANION GAP 16.2 (10.0-19.0); AST 23 IU/L (10-40); CALCIUM 8.3 mg/dL (8.5-10.5); CHLORIDE 94 mMol/L (96-110); CO2 24 mMol/L (22-32); POTASSIUM 4.2 mMol/L (3.7-5.1); SODIUM 130 mMol/L (135-145); TOTAL PROTEIN 5.4 g/dL (6.0-8.4)
[2016-07-26 06:39] LABS: BLOOD UREA NITROGEN 69 mg/dL (6-24)
[2016-07-26 06:40] LABS: ALBUMIN 1.9 gm/dL (3.5-5.0); CREATININE 7.3 mg/dL (0.5-1.1); ESTIMATED GFR (MDRD EQUATION) 6; TOTAL BILIRUBIN 0.2 mg/dL (0.0-1.5)
[2016-07-26 06:41] LABS: ALT < 10 IU/L (12-78)
[2016-07-26 08:25] LABS: BICARBONATE 25.8 mmol/L (18.0-23.0); PCO2 49 mmHg (35-45)
[2016-07-26 08:26] LABS: PO2 86 mmHg (80-90)
--- NOTE | 2016-07-26 11:11 | NUR ---
Talked with patient and spouse at bedside, introduced self and reintroduced care management services to them. Pt has headache and feels nauseated, emesis bag in hand. Discussed with them that I know her goal prior to surgery was going home on discharge, but that with her TTWB status she will likely need skilled stay somewhere first to get stronger before going home safely. Discussed hospital does not have skilled unit, so options in the community would be [facility], [facility], [facility] and [facility]. Spouse reports it didn't go very well getting out of bed the last time. Encouraged them to discuss where she might like to go and floor care technician will talk with them again as physician indicates ready for discharge. Will follow.
--- NOTE | 2016-07-26 17:00 | NUR ---
Significant Event: PT HAS BEEN DROWSY AT TIMES. AWAKENS EASILY TO VERBAL/TACTILE STIMULI. FOLLOWS COMMANDS. PERRLA. ABLE TO STATE NAME/BIRTHDAY AND KNOWS THAT SHE IS IN [place]. WEAK, EQUAL STRENGTH X4. 2-ASSIST/TURN Q2H. TOE-TOUCH WEIGHT BEARING TO R)LEG. SAT ON THE EDGE OF THE BED WITH THERAPY TODAY. HEAD CT DONE THIS AM DUE TO DROWSINESS; RESULTS WERE NEGATIVE. ABG'S ALSO DRAWN. PACEMAKER. VITAL SIGNS STABLE; ORDER TO KEEP SBP >90 AND MAP >60. SBP'S HAVE BEEN IN THE 90'S TO LOW 100'S THIS SHIFT AND MAP HAS BEEN GREATER THAN 60. GENERALIZED EDEMA. 1+ TIBIAL/PEDAL PULSES BILATERALLY. WEANED TO ROOM AIR. WEARS OWN CPAP AT NIGHT. COOPERATIVE WITH INCENTIVE SPIROMETER, WITH HELP. FISTULA TO L)ARM HAS POSITIVE BRUIT/THRILL. LAST BM ON 07/20/16. PASSING FLATUS. FAIR APPETITE. Q6H ACCUCHECKS; PT HAS OWN INSULIN PEN. L)ABDOMINAL DIALYSIS SITE. ANURIA; PT DOES NOT MAKE URINE DUE TO BEING ON DIALYSIS. MEPILEX DRESSINGS X2 TO R)HIP INTACT. DRESSING TO R)ANKLE INTACT ([facility] NURSES HAVE BEEN SEEING PT). R)EXTERNAL JUGULAR IV SALINE LOCKED. COMPLAINS OF SORENESS TO R)HIP WITH REPOSITIONING. PRN IBUPROFEN GIVEN X1 THIS AM, WITH RELIEF. IV ZOFRAN GIVEN AT 1000 DUE TO PT HAVING AN EMESIS. PT THREW UP ABOUT 450 ML OF BREAKFAST. HAS BEEN AT BEDSIDE AND IS VERY HELPFUL WITH PT CARES. HE HAS BEEN DOING THE PT'S PERITONEAL DIALYSIS EVERY NIGHT. TRANSFERRED TO [address] [place] [address] AT 1610 PER TRANSPORT TEAM, VIA BED. BELONGINGS WERE SENT WITH PT. REPORT WAS GIVEN TO JOSUE, RECEIVING NURSE.
--- NOTE | 2016-07-26 17:42 | NUR ---
Significant Event: From ICU at 1605. Repositions in bed with two assist. Dressings C/D/I. Denies numbness/tingling, extremeties weak but equal. 2L O2 started at 1655 for sats of84-88% while sleeping. RT notified and C-pap setup and started, sats >90% since. Denies pain. Accucheck Q 6 hours, 138 at supper. No void at this time. R) sinlge lumen IJ saline locked. to assist with Peritoneal Dialysis, dialysis nurse here and set everything up. Dialysis fistula to L) forearm with good bruit/thrill. Last BM 07/20, started on Lacutlose prior to transfer. Slow to answer. Oriented to person and birthday, does know that she is in [place]. Follow up:
--- NOTE | 2016-07-27 05:41 | NUR ---
Significant Event: Pt awakens and responds to voice. Drowsy, falls alseep quickly after talking to. Slow to answer questions. Oriented to person and place, disorietned to time. Vital signs stable. Did place on 2L 02 for desat to 84% while sleeping. Wears CPAP. Follows commands when asked to do so. Pupils are round and reactive to light. No facial assymetry noted. Weak, but equal strengh to extremities. Edema present throughout body. Arms elevated. Fistula with bruit and thrill to L) arm. [facility] last noc. Mepilex dressing to R) hip is CDI. 1+ pedal pulse. R) ankle dressing (WOC is following) is CDI. Feet warm and cap refill <3 seconds. TTWB to RLE. PT is working with patient. Nursing is using lift to transfer. Pushed IS frequently. Turned q 2 hr and kept heels elevated. Ate bites for supper. Pt stated she felt nauseated, gave zofran with relief. Accuchecks q 6 hr. External jugular IV to R) neck intact and flushes well. Bowel sounds active but no BM since 07/20. Lactulose started yesterday. No urine output. Follow up: Continue to monitor neurological status. Push IS use.
--- NOTE | 2016-07-27 11:30 | NUR ---
Without giving patients medical information called SNF's to find out who would consider PD. Waiting to hear back from [facility], [facility] and [facility] here in town. No's are [facility] and [facility]. [facility] would consider but they are full. [facility] would consider but they only have one female room and the room mate may not be ideal for this situation. Will visit with patient and family tomorrow once I know what there options will be.
--- NOTE | 2016-07-27 13:38 | NUR ---
A - NUTRITION F/U. 07/26 LABS: NA+ 130, GLU 174, BUN/MARKETING PERFORMANCE ANALYST 69/7.3, ALB 1.9. PT W/ 1-2+ EDEMA T/O. ON PERITONEAL DIALYSIS. DRESSING TO R) ANKLE. PT W/ NAUSEA. CONSTIPATED, NO BM SINCE 07/20, LACTULOSE GIVEN. DIET: DIABETIC W/ GLUCERNA TID. INTAKE SIPS TO 75%. D - AT RISK W/ INADEQUATE ORAL INTAKE R/T DECRASED APPETITE AEB INTAKE RECORD. I - GOAL: 50-75% OR BETTER INTAKE BY DISMISSAL. M/E - WILL MONITOR INTAKE AND F/U IN 3-5 DAYS.
--- NOTE | 2016-07-27 16:31 | NUR ---
patient up in chair for 1.5 hrs with lift today. vss. peritoneal dialysis to abdomen, will set up before he leaves today to run overnight. left arm fistula bruit/thrill. right lower ankle mepilex dressing d/i-wound care checked this today. right hip two mepilex dressing d/i. csm adequate except weak. patient orientated , slow to respond with answers, sandy hose applied to lower legs, foot pumps intact. patient abdomen, soft and bowel sounds active. given dulcolax supp and fleet enema today with small liquid results. right jugular intact to right neck. lung sounds clear diminished. bruise noted to right flank area. edema noted to bilateral arms, edema noted to legs. motrin for pain at 0930.
--- NOTE | 2016-07-28 04:49 | NUR ---
Shift Summary: Patient on peritoneal dialysis at night. hooks it up before leaving. Patient has had 3 bowel movements after receiving multiple anticonstipation medications. She is slow to respond verbally. Disoriented to time and date. Edema to all extremities but is slowly resolving. Needs encouraged to increase PO intake. On Accuchecks AC&HS with sliding scale. Bedtime blood sugar was 120. Has an external IV to right neck. Flushes well but no blood return. Has dressing to right inner ankle and then surgical dressings x 2 to right hip/thigh. Patient is a total lift to transfer. She did sit up at the bedside and dangle last night.
[2016-07-28 05:54] LABS: HEMATOCRIT 23.5 % (33.0-46.0)
[2016-07-28 05:55] LABS: HEMOGLOBIN 7.6 g/dL (10.0-15.0)
[2016-07-28 06:06] LABS: ANION GAP 15.1 (10.0-19.0); CALCIUM 8.5 mg/dL (8.5-10.5); POTASSIUM 4.1 mMol/L (3.7-5.1)
[2016-07-28 06:07] LABS: CREATININE 7.4 mg/dL (0.5-1.1)
--- NOTE | 2016-07-28 09:40 | NUR ---
[facility] can not accept due to PD. 1050 Missy Ruiz discussed option, GIRP may be the only option. She will see about getting a consult. Charge Poonam will check with Dr. Be. 1155 Bala from [facility] called, no beds would maybe consider PD but not at this time. 1235 Dr. Ackerman called. Updated on SNF options and possible GIRP eval. 1320 Left a message at [facility] about if they could accept PD? 1640 Minal from [facility] called back - no they can't accept.
--- NOTE | 2016-07-28 17:24 | NUR ---
Significant Event: PAtient alert this am. Slept most of afternoon. Up in recliner x2 with lift. Dangled and stood at bedside with PT. Dressing dry and intact x2 to rt hip. PD cath intact to abdomen. Fistula to left antecubital. Telemetry. Dressing dry and intact to rt ankle. Forgetful to place and time. Follow up:
--- NOTE | 2016-07-29 04:41 | NUR ---
Significant Event: Pt more awake and alert compared to previous night. Oriented to person, place, and forgetful to time. Hypotensive with lowest BP of 91/47 with MAP of 65. HS lopressor held. Last BP was 126/58. Edema noted throughout. Pitting edema to bilateral upper extremities. Telemetry with no calls. Wears CPAP at HS. Had to increase 02 to 2L while sleeping to keep sats >90%. 1 small soft BM this shift. Anuria. Mepilex dressing X2 to R) hip. CDI. Allevyn dressing to R) ankle, CDI. CSM WNL. Minimal pain. R) external jugular IV. Turned q 2 hr. Accucheck at HS was 118. Transferred from chair to bed with 2 person assist with lift. TTWB to RLE. Follow up:
[2016-07-29 05:57] LABS: HEMATOCRIT 23.6 % (33.0-46.0)
[2016-07-29 05:58] LABS: HEMOGLOBIN 7.6 g/dL (10.0-15.0)
[2016-07-29 06:10] LABS: ANION GAP 18.2 (10.0-19.0); CALCIUM 8.7 mg/dL (8.5-10.5); PHOSPHORUS 4.4 mg/dL (2.5-4.9); POTASSIUM 4.2 mMol/L (3.7-5.1)
[2016-07-29 06:15] LABS: CREATININE 7.7 mg/dL (0.5-1.1)
--- NOTE | 2016-07-29 10:15 | NUR ---
Spoke with Caron Cruz. Dr Be didn't approve of GIRP consult. No accepting SNF found for this week, will revisit next week. Many will not even consider PD.
--- NOTE | 2016-07-29 19:02 | NUR ---
Significant Event:a/o but somewhat slow to respond, at bedside helpful with her needs, csm good drsg d/i to right hip....ice on, had 4 small stool this shift, refused lactulose....gets hooked up to dailysis at 1700 off at 0700. no void this shift... Follow up:
--- NOTE | 2016-07-30 04:12 | NUR ---
Paient is alert and orient x3, much more alert today, sometimes slow to repond but responds appropriately, very talkative and active, no c/o pain, csm with in normal limts, dressings intact to hip, ice in place to hip, repositioned q 2hours to prevent skin breakdown, Blood glucose 155 at 2100, did have loose stools this shift patient refused lactulose, at bedside most of evening
--- NOTE | 2016-07-30 13:21 | NUR ---
A - NUT F/U. S/P R) HIP FX. PERITONEAL DIALYSIS. MORE ALERT. 1-2+ EDEMA. LABS: ACCUCHECK WNL-REAS, NA 132, GLU 196, BUN/CR 69/7.7, ALB 2.0, HGB/HCT 7.6/23.6. MEDS: LACTULOSE, LEVEMIR, LEXAPRO, PEPCID, BOWEL/NAUSEA, RENVELA. DIET: DIABETIC. INTAKE: 25-50% GLUCERNA TID. NEEDS: 2255-7580 KCAL, 62-73 G PRO. DIALYSATE DOES PROVIDE SOME CALORIES. D - INADEQUATE NUTRIENT INTAKE R/T DECREASED APPETITE AEB INTAKE RECORD. I - GOAL FOR INTAKE > 50% BY NEXT ASSESSMENT. WILL CONTINUE GLUCERNA TID. WILL ADD MAGIC CUP @ L. M/E - WILL MONITOR INTAKE. F/U IN 3-5 DAYS.
--- NOTE | 2016-07-30 16:47 | NUR ---
Significant Event:Patient and oriented. Forgetful at times. Dressing dry and intact to rt hip x2. External jugular IV to rt neck with good blood return. CSM WNL. Fistula to lt antecubital. PD cath to abdomen. Up in recliner with lift. Dangled and stood at bedside with PT. Follow up:
--- NOTE | 2016-07-31 04:14 | NUR ---
Patient is alert and oriented x3, is slightly slow to respond to questions and sometimes has trouble saying what she means however she does respond appropriately and is very talkative, dressings are clean dry and intact to hip, ice in place to hip, repositioned q 2hours, csm with in normal limits, uses the lift for transfers is a two assist with cares, had tylenol at 0400 for pain in her left knee
--- NOTE | 2016-07-31 13:06 | NUR ---
PT ALERT AND ORIENTED. FULL LIFT TO TRANSFER. WEARS CPAP AT HS. ACCUCHECKS AC AND HS. RT EJ TTWBEARING ON THE RIGHT. MEPELIX DRESSINGS TO RT HIP. PT HAS PERITINEAL DIALYSIS. USUALLY MANAGES FOR HER ALONE WITH THE DIALYSIS NURSE. BM TODAY. DOES NOT VOID. TAKES MEDS WITHOUT DIFFICULTY.
--- NOTE | 2016-07-31 14:15 | NUR ---
pt transfered to [facility]. family at pt's side.
[2016-10-22] MEDS ORDERED: PROTONIX40 MG PO (11:28)
[2016-10-22] MEDS ORDERED: TRIPHROCAPS SOFT1 MG PO (11:30)
[2016-10-22] MEDS ORDERED: TOUJEO SOL300 UNIT/1 SUB-Q (11:30)
[2016-10-22] MEDS ORDERED: ACID REDUCER10 MG PO (11:32)
[2016-10-22] MEDS ORDERED: ARTIFICIAL TEAR15 M2 OPHTH (11:33)
[2016-10-22] MEDS ORDERED: PAXIL10 MG PO (11:35)
[2016-10-22] MEDS ORDERED: HUMALOG100 UNIT/2 SUB-Q (11:45)
== END 2016-07-31 14:05 | DRG 480 ==
LOC: GACC 17:10 → G3N 20:33 → GICU 07-22 19:35 → G3N 07-26 16:05
PROVIDERS: Anesthesiology Critical Care Medicine; Family Medicine; Internal Medicine; Nurse Practitioner; Nurse Practitioner Family; Physician Assistant; Physician Assistant Medical; ADMIT Orthopaedic Surgery
PROC: 3E1M39Z Irrigation of Peritoneal Cavity using Dialysate, Percutaneous Approach (ICD-10-PCS; 2016-07-20)
PROC: 0QS636Z Reposition Right Upper Femur with Intramedullary Internal Fixation Device, Percutaneous Approach (ICD-10-PCS; principal; 2016-07-22)
DX: S72.144A Nondisplaced intertrochanteric fracture of right femur, initial encounter for closed fracture (principal); N18.6 End stage renal disease; R57.1 Hypovolemic shock; J96.21 Acute and chronic respiratory failure with hypoxia; I13.2 Hypertensive heart and chronic kidney disease with heart failure and with stage 5 chronic kidney disease, or end stage renal disease; G93.41 Metabolic encephalopathy; I27.2 Other secondary pulmonary hypertension; I48.2 Chronic atrial fibrillation; G25.81 Restless legs syndrome; J96.22 Acute and chronic respiratory failure with hypercapnia; D62 Acute posthemorrhagic anemia; I50.32 Chronic diastolic (congestive) heart failure; E11.22 Type 2 diabetes mellitus with diabetic chronic kidney disease; W01.0XXA Fall on same level from slipping, tripping and stumbling without subsequent striking against object, initial encounter; Z99.2 Dependence on renal dialysis; I95.81 Postprocedural hypotension; I25.10 Atherosclerotic heart disease of native coronary artery without angina pectoris; E78.5 Hyperlipidemia, unspecified; E87.6 Hypokalemia; E83.39 Other disorders of phosphorus metabolism; G47.33 Obstructive sleep apnea (adult) (pediatric); F32.9 Major depressive disorder, single episode, unspecified; F41.9 Anxiety disorder, unspecified; Z95.5 Presence of coronary angioplasty implant and graft; Z95.0 Presence of cardiac pacemaker; Z79.4 Long term (current) use of insulin; Z79.01 Long term (current) use of anticoagulants; Z79.899 Other long term (current) drug therapy; D63.1 Anemia in chronic kidney disease; Z91.19 Patient's noncompliance with other medical treatment and regimen; E11.649 Type 2 diabetes mellitus with hypoglycemia without coma; K59.00 Constipation, unspecified; D50.9 Iron deficiency anemia, unspecified
CPT/HCPCS: C1713; J0131; J0610; J0690; J1265; J1610; J2270; J2405; J2550; J2916; J3010; J3480; J7030; J7040; J7042; J7050; P9045; P9047

== ENCOUNTER → 2016-07-20 | Outpatient (CLI) | payer MEDICARE, OTHER | END | disposition disaster alternative care site (69) | LOC: GAMB 16:38 → GACC 16:38 | DX: S79.911A Unspecified injury of right hip, initial encounter (principal); M25.551 Pain in right hip; Z79.899 Other long term (current) drug therapy; Z88.8 Allergy status to other drugs, medicaments and biological substances; W19.XXXA Unspecified fall, initial encounter | CPT/HCPCS: A0425; A0427; J2405; J3010 ==

== ENCOUNTER 2016-07-31 14:26 | Inpatient (IN) | payer MEDICARE, OTHER ==
[~2016-07-31] VITALS: Ht 160 cm; Wt 82.1 kg
--- NOTE | ~2016-07-31 | DS ---
PATIENT'S NAME: NORMA PAEZ [facility] AGE: 71 Y [address] ROOM: [place] [address] LOCATION: [facility] ADMIT DATE: 07/31/2016 Discharge Summary DISCHARGE DATE: FAMILY PHYSICIAN: Julio Cesar MD ATTENDING PHYSICIAN: Ronaldo Laura HISTORY OF PRESENT ILLNESS: This 71-year-old lady was admitted to rehab unit at [facility] on 07/31/2016 and is discharged to home on 08/17/2016. 1. Unstable gait. 2. Dependent activities of daily and self-care. 3. Status post right hip ORIF intertrochanteric fracture, secondary to a falling incident, status post gamma nail placement on 07/22/2016, details on record. 4. She is at the present time on strict toe-touch weightbearing on the right side and following it well. During her stay with us, she had also an AV fistula done for dialysis. She has chronic renal failure, details on record. She is at the present time alert and oriented. PHYSICAL EXAMINATION: VITAL SIGNS: Blood pressure 120/53, temperature 97.6, pulse 76, respirations 18. LABORATORY DATA: Her Accu-Chek on 08/16/2016 at 7:00 a.m. was 81 ranging between 214-281. Her CBC is as follows: White BC 5.2, RBC 2.14, hemoglobin 6.9, and we will check it in a.m. with hematocrit 22.3 and platelets 150. CMS: Sodium 135, potassium 4.4, chloride 95, CO2 27, BUN 72, creatinine 8.8, and glucose 105. Her prealbumin is 19.0. She is weightbearing strict toe-touch on the right lower extremity. She will follow with me in 4 weeks and she will be on outpatient PT/OT 3 times per week. She will follow with Dr. Ascencio, Dr. Devan Urban or Cardio, Dr. Brush, and Dr. Be as she sees fit. MEDICATIONS: She is at the present time on the following medications: 1. Deflex 2.5 with dialysis. PATIENT'S NAME: NORMA PAEZ [facility] AGE: 71 Y [address] ROOM: [place] [address] LOCATION: [facility] ADMIT DATE: 07/31/2016 Discharge Summary DISCHARGE DATE: FAMILY PHYSICIAN: Julio Cesar MD ATTENDING PHYSICIAN: Ronaldo Laura 2. Tylenol 1000 mg twice daily p.o. 3. Zyloprim 300 mg p.o. daily. 4. Eliquis 2.5 mg twice daily. 5. Lipitor 20 mg p.o. daily. 6. Rocaltrol 0.25 mg daily. 7. Colace 100 mg p.o. twice daily. 8. Lexapro 10 mg daily. 9. Pepcid 20 mg p.o. daily. 10. Neurontin 100 mg p.o. at night. 11. Gentamicin sulfate 3 drops every day. 12. Levemir 10 units subcu at bedtime. 13. Lexapro 12.5 mg p.o. at bedtime. 14. ProAmatine 10 mg p.o. daily. 15. The patient's own medications insulin scale per sliding scale. 16. Mysoline 50 mg p.o. daily. 17. Requip 0.25 mg 3 times daily. 18. Renvela 2400 mg 3 times daily with meals. 19. Demadex 200 mg p.o. in the morning. 20. The patient's own medication, Humalog subcu, see instructions. 21. [place]ub[place] 5/325 one tablet q.3 hours, 36 of them. 22. Zofran 4 mg p.o. as needed, 10 doses. 23. MiraLAX 17 g p.o. daily as needed. All the above medications are given for 30 days and as pointed for some medication for 10 days or so. Renewal is all through her family physician, adding or subtracting medication is up to her family physician. She is instructed to have strict toe-touch weightbearing on the right lower extremity. FINAL DIAGNOSES: She is with final diagnoses as follows: 1. Unstable gait. 2. Dependent on activities of daily and self-care. 3. Status post ORIF, right hip intertrochanteric fracture and intramedullary gamma nail put on 07/22/2016. 4. Renal insufficiency, lately with AV fistula. 5. Diabetes type 2. 6. Hypertension. 7. Paroxysmal atrial fibrillation with pacemaker placement. 8. Obstructive sleep apnea. 9. Dyslipidemia. 10. Depression. 11. Gout. 12. Restless legs syndrome. 13. Reflux gastric disease. PATIENT'S NAME: NORMA PAEZ [facility] AGE: 71 Y [address] ROOM: [place] [address] LOCATION: [facility] ADMIT DATE: 07/31/2016 Discharge Summary DISCHARGE DATE: FAMILY PHYSICIAN: Julio Cesar MD ATTENDING PHYSICIAN: Ronaldo Laura DISCHARGE INSTRUCTIONS: The patient is not to drive and/or operate any mechanical device until she is evaluated. All the above was explained to her in detail. She verbalized understanding and agreement. RONALDO LAURA MD WMS/modl /[id number] d: 08/17/16 0347 t: 08/18/16 0811, DISCHARGE SUMMARY
--- NOTE | ~2016-07-31 | ENPV ---
Vascular Upper Extremities Arterial Duplex and Dialysis Procedure Demographics Patient Name NORMA PAEZ Date of Study 08/03/2016 Patient Number [id number] Gender Female Date of 1945 Age 71 Visit Number [id number] Height Accession Number [id number] Weight Room Number G3293 BSA BMI Referring Caroline Baltazar MD Interpreting Sonu King MD Physician Arsenio Kim MD Physician Regi Londono APRN Physician Ordering Physician Agriculture Consultant Cinetechnician Derrek Shah RVT Conclusions Summary No evidence of DVT throughout left upper extremity. Images 33-35 labeled incorrectly should be labeled proximal. The left arm fistula appears to have a stenosis at the anastomosis. flow volume measurements are in cc/min. Procedure Type of Study: Extremities Arteries:Upper Extremities Arterial Duplex, Upper Extremity Left. Dialysis:A.V. Fistula Duplex NH. Appropriate Use Criteria:9 Allergies - Other:(Sitagliptin). Patient Status:Routine. Study Location:Inpatient Portable. Technical Quality:Adequate visualization. Velocities are measured in cm/s ; Diameters are measured in cm Dialysis Fistula - Access Description + +---+---+ +-----+ + !Fistula Location !PSV!EDV!AP Diam !Depth!Volume Flow ! + +---+---+ +-----+ + !Brachial !219!75 !0.31 !1.91 ! ! + +---+---+ +-----+ + !Dist Radial !102!8 !0.3 !1.28 ! ! + +---+---+ +-----+ + !Arterial Anastomosis !871!512!0.18 !0.41 !590 ! + +---+---+ +-----+ + !Prox Vein !162!63 !0.48 !0.24 !524 ! + +---+---+ +-----+ + !Mid Vein !200!95 !0.35 !0.49 !698 ! + +---+---+ +-----+ + !Distal Vein !193!68 !0.29 !0.2 !1315 ! + +---+---+ +-----+ + Signature dtt: PRECIOUS PRYOR dtroxanne: 08/03/16 1607 Physician Self Edit
--- NOTE | ~2016-07-31 | CON ---
PATIENT'S NAME: MARIE PAEZ [facility] AGE: 71 Y [address] ROOM: [place] [address] LOCATION: [facility] ADMIT DATE: 07/31/2016 Consultation DISCHARGE DATE: FAMILY PHYSICIAN: OLGA ELISE MD ATTENDING PHYSICIAN: Ronaldo Laura DATE OF CONSULTATION: 08/03/2016 REFERRING PHYSICIAN: LORIE BAILEY MD Team members reporting include Dr. Velazquez, acting for Dr. Laura this week; Dr. Jadyn Coreas, healthcare social worker; Magaly Vidales, RN; Veronica Post, PT; Remedios Peter, PT; Manuela Carr, OT; Anjana Gomez, therapeutic rec; and Sister Terrie Kunz, Pastoral Care. CURRENT STATUS: Marie Paez is a 71-year-old woman, admitted to our inpatient rehab unit on July 31, 2016. The patient did fall in her home and sustained a right hip fracture. The patient did have an open reduction and internal fixation of that right hip. She has a history of end-stage renal disease, currently on peritoneal dialysis. She also has a history of coronary artery disease; diastolic heart failure; pacemaker implantation; atrial fibrillation; dyslipidemia; hypertension; obstructive sleep apnea; pulmonary hypertension; pancreatitis, secondary to diabetes mellitus medications; recent sacral wound; depression and anxiety; and restless legs syndrome. The patient is continent of bowel. The patient was able to void the other day, and she had not voided in over 5 weeks. She does have scattered bruises. She has a bruise to her back left buttock; an old sore on her coccyx, not currently open; two red areas on the back of her heels, we are working on floating them; large scabbed area to her right lower leg healed fistula site. She takes Tylenol for pain. She is on a consistent carbohydrate diet. The patient can complete sit to supine transfers at minimal to dependent; supine to sit, minimal to dependent; sit to stand and stand to sit, minimal assistance; scoot transfers, minimal to moderate to dependent just depending on how she is feeling for the day. She is limited especially by pain. Ambulation has not been done yet. Wheelchair mobility has not been done yet. Goals will be set for mod I. The patient can dress her upper body at minimal assistance; lower body, dependent; grooming, standby; bathing, minimal assistance. Goals for OT set for standby assistance. Initial evaluation by therapeutic rec was done. She does have depression and anxiety history. The patient's latter day has been coming to visit with her. DISCHARGE PLAN: The patient is receiving 3 hours of PT, OT; Tuesday through Tuesday. The patient has daily rehab, nursing, and physiatry involvement as well therapeutic recreational services 4 days per week. The patient has shown PATIENT'S NAME: MARIE PAEZ [facility] AGE: 71 Y [address] ROOM: [place] [address] LOCATION: [facility] ADMIT DATE: 07/31/2016 Consultation DISCHARGE DATE: FAMILY PHYSICIAN: OLGA ELISE MD ATTENDING PHYSICIAN: Ronaldo Laura functional improvement and is progressing. Please see her plan of care for specific goals. Plan is for the patient to discharge in approximately 3 weeks. Plan is for the patient to return to home with her here in [place] if at all possible. JADYN COREAS FOR RONALDO LAURA MD TD/modl /[id number] d: 08/09/162017 t: 09/02/16 1600, CONSULTATION REPORT
--- NOTE | ~2016-07-31 | CON ---
PATIENT'S NAME: NORMA PAEZ [facility] AGE: 71 Y [address] ROOM: [place] [address] LOCATION: [facility] ADMIT DATE: 07/31/2016 Consultation DISCHARGE DATE: 08/17/2016 FAMILY PHYSICIAN: Julio Cesar MD ATTENDING PHYSICIAN: Ronaldo Laura DATE OF CONSULTATION: 08/10/2016 REFERRING PHYSICIAN: Willian Be MD Team members reporting include Dr. Laura; Jadyn Coreas, manager social; Magaly Vidales RN; Remedios Peter, PT; Manuela Carr, OT; Anjana Gomez, therapeutic rec; and Sister Terrie Kunz, Pastoral Care. CURRENT STATUS: Tor Salazar is a 71-year-old woman, admitted to our inpatient rehab unit following a hip fracture resulting in ORIF of the right hip. The patient is currently continent of bowel and bladder. She does have low input and output due to being on peritoneal dialysis for renal failure. She does have an incision on her right hip, scabs to her right lower leg, taking Tylenol for pain. Her prealbumin is at 24. The patient can transfer sit to supine and supine to sit at standby; sit to stand and stand to sit, contact guard assistance; and bed to chair and chair to bed, contact guard assistance. She can walk 6 feet and 8 feet in the parallel bars which is still a dependent task and she can propel her wheelchair 150 feet on level surfaces at standby. She can dress her upper body at standby; lower body minimal assistance; grooming mod I; bathing minimal assistance; toilet and shower transfers, contact guard assistance; toileting contact guard assistance; and feeding, standby assistance. She has met 7/8 short-term OT goals. Car transfers are currently at contact guard assistance to standby assistance using a slide board. The patient has been very active in her pentecostalism. DISCHARGE PLAN: The patient is receiving 3 hours of PT, OT, Tuesday to Tuesday. The patient has daily rehab, nursing, and physiatry involvement as well as therapeutic recreational services 4 days per week. The patient has shown functional improvement and is progressing. Please see his plan of care for specific goals. Plan is for the patient to return to home in approximately 7 to 10 days. The patient is focusing more on 7 days versus 10 days. JADYN COREAS FOR RONALDO LAURA MD TD/hoal PATIENT'S NAME: NORMA PAEZ [facility] AGE: 71 Y [address] ROOM: [place] [address] LOCATION: [facility] ADMIT DATE: 07/31/2016 Consultation DISCHARGE DATE: 08/17/2016 FAMILY PHYSICIAN: Julio Cesar MD ATTENDING PHYSICIAN: Ronaldo Laura /[id number] d: t: 08/20/16 1503, CONSULTATION REPORT
--- NOTE | ~2016-07-31 | CON ---
PATIENT'S NAME: NORMA PAEZ [facility] AGE: 71 Y [address] ROOM: [address] [place], [place] [address] LOCATION: [facility] ADMIT DATE: 07/31/2016 Consultation DISCHARGE DATE: FAMILY PHYSICIAN: OLGA ELISE MD ATTENDING PHYSICIAN: Jose F Velazquez DATE OF CONSULTATION: 08/03/2016 REFERRING PHYSICIAN: LORIE BAILEY MD REASON FOR CONSULT: Left arm fistula evaluation. HISTORY OF PRESENTING ILLNESS: This is a 71-year-old female currently admitted to [facility] inpatient rehab. The patient tripped on blankets at home while doing laundry and sustained a right hip fracture. The patient is postop ORIF completed on 07/22/2016. The patient has a longstanding history of end-stage renal disease and currently on peritoneal dialysis. The patient is well known to Vascular Surgery as the patient had a left arm brachiocephalic fistula created on 06/03/[address] Ascencio. We have been waiting for brachiocephalic fistula to reach maturity and the patient was to follow up in our clinic at the end of July. However, the patient has been admitted for her hip fracture and we are asked to see the patient regarding her fistula. The patient reports that her peritoneal dialysis catheter has been working without complications. There is concern that her fistula is without bruit or thrill. The patient denies any numbness or tingling in her left hand or arm. She reports that she felt like her left arm surgical site was warm recently. She denies any chest pain, shortness of breath, lightheadedness, or dizziness. Reports feeling nauseous at times but none current. Denies any constipation, diarrhea, vomiting, or abdominal pain. Denies any fevers or chills. Denies any erythema, drainage, or swelling from her left arm surgical site. Complains of pain in her right hip. The patient denies any claudication. Denies any bruising. Is on long-term anticoagulation with Eliquis for history of atrial fibrillation. PAST MEDICAL HISTORY: 1. End-stage renal disease secondary to vascular disease, Cardiorenal syndrome type 2. 2. Coronary artery disease, status post PCI. 3. Chronic diastolic heart failure. 4. Status post permanent pacemaker implantation. 5. Atrial fibrillation, on long-term anticoagulation with Eliquis. 6. Dyslipidemia. 7. Hypertension. 8. Obstructive sleep apnea. PATIENT'S NAME: NORMA PAEZ [facility] AGE: 71 Y [address] ROOM: [place] [address] LOCATION: [facility] ADMIT DATE: 07/31/2016 Consultation DISCHARGE DATE: FAMILY PHYSICIAN: OLGA ELISE MD ATTENDING PHYSICIAN: Jose F Velazquez 9. Pulmonary hypertension. 10. History of pancreatitis secondary to diabetic medications. 11. Recent sacral wound. 12. Depression and anxiety. 13. Restless legs syndrome. SURGICAL HISTORY: 1. Left arm brachiocephalic fistula. 2. Right hip ORIF. 3. Peritoneal dialysis catheter placement. 4. Appendectomy. 5. Cholecystectomy. 6. Pacemaker placement. 7. Left heart catheterization with PCI in 2009. 8. Right wrist surgery. 9. Cataract surgery. 10. Tunneled dialysis catheter placement. FAMILY HISTORY: Mother with diabetes and coronary artery disease. Father with coronary artery disease and kidney disease. Brother with kidney disease. SOCIAL HISTORY: The patient is . She has no history of tobacco use. Denies any alcohol or illicit drug use. CURRENT MEDICATIONS: See medication reconciliation. ALLERGIES: JANUVIA AND PRADAXA. REVIEW OF SYSTEMS: A 10-point review of systems completed, positives addressed in history of presenting illness. PHYSICAL EXAMINATION: VITAL SIGNS: Temperature 97.7, heart rate 74, respiratory rate 17, blood pressure is 108/54, and oxygen saturation is 97%. GENERAL: The patient is a good historian and in no acute distress. She is alert and oriented x3. SKIN: Warm, pink, and dry without rashes. Her left arm surgical incision has healed well with scar. HEENT: Head, normocephalic and atraumatic. Ears without drainage. Eyes; sclerae white and conjunctivae pink. Extraocular movements intact. PERRLA. PATIENT'S NAME: NORMA PAEZ [facility] AGE: 71 Y [address] ROOM: [place] [address] LOCATION: [facility] ADMIT DATE: 07/31/2016 Consultation DISCHARGE DATE: FAMILY PHYSICIAN: OLGA ELISE MD ATTENDING PHYSICIAN: Jose F Velazquez Nose without drainage. Throat; oral mucosa pink and moist. No exudate or erythema. NECK: Without adenopathy. No evidence of JVD. No carotid bruit. Trachea midline. RESPIRATORY: Clear to auscultation bilaterally, even and nonlabored. CARDIO: Irregular rhythm. No murmurs or extra sounds. GASTROINTESTINAL: Bowel sounds active x4. Soft and nontender. No organomegaly. EXTREMITIES: Bilateral radial pulses 2+. Femoral pulses 2+. She has nonpitting edema to bilateral extremities. Her left upper extremity has worse edema than the right. Her left arm fistula is with bruit and thrill that diminishes proximally. No cyanosis. Pain at right hip. NEUROLOGIC: No focal deficits. Sensation is intact. IMPRESSION AND PLAN: End-stage renal disease, postop left arm fistula. On exam, fistula is not as I would expect it to feel almost 9 weeks postoperatively. I do appreciate a bruit and thrill. However, her thrill diminishes proximally. I am able to hear bruit throughout. Fistula is likely too deep causing the diminished thrill. The fistula may also not have adequate flow at this time. We will go ahead and obtain a fistula duplex with flow volume. If fistula is too deep but with adequate flow, she will require a superficialization. If the fistula does not have adequate flow for dialysis, she will likely need a fistulogram. This would give us more information regarding stenosis or branches stealing flow. Further plan to be determined after fistula duplex today. At this time, fistula is not ready to be used for dialysis. In regard to her surgical site, it is healed without infection. Thank you for your consultation and for allowing us to participate in the care of this patient. YESSY COLE APRN FOR PRECIOUS ASCENCIO MD TO/modl /[id number] d: 08/03/16 2158 t: 08/20/16 1244, CONSULTATION REPORT
--- NOTE | ~2016-07-31 | OR ---
PATIENT'S NAME: NORMA PAEZ [facility] AGE: 71 Y [address] ROOM: [place] [address] LOCATION: [facility] ADMIT DATE: 07/31/2016 OR/Procedure Report DISCHARGE DATE: FAMILY PHYSICIAN: OLGA ELISE MD ATTENDING PHYSICIAN: Ronaldo Salgado SURGEON: Fernando Ascencio MD MACHINE TRIMMER: DATE OF PROCEDURE: 08/10/2016 PREOPERATIVE DIAGNOSIS: Poorly functional fistula. POSTOPERATIVE DIAGNOSIS: Poorly functional fistula. PROCEDURE: Left arm fistulogram. TANK TRUCK LOADER: Curing Oven Attendant staff. ANESTHESIA: MAC local. ESTIMATED BLOOD LOSS: 5 mL. OPERATIVE FINDINGS: Fistula too tortuous to be used for dialysis access as this will need open revision. DESCRIPTION OF PROCEDURE: The patient was brought to the C[employer] Attendant, placed supine on the picket labor union table, prepped and draped in a sterile manner. Preoperative time-out was performed. The patient received preoperative antibiotics. We gained access using ultrasound guidance of the fistula in the left upper arm using a micropuncture wire followed by micropuncture needle followed by micropuncture sheath. We performed a series of fistulograms, which showed that the fistula was markedly tortuous and there was absolutely no straight section to the vein and that the vein terminated into 2 distinct very small branches in the upper arm. There was no way that this fistula was going to provide adequate flow for dialysis. The micropuncture sheath was removed. We held pressure for 5 minutes. The patient will require revision in the operating room tomorrow. FERNANDO ASCENCIO MD FKM/modl PATIENT'S NAME: NORMA PAEZ [facility] AGE: 71 Y [address] ROOM: [place] [address] LOCATION: [facility] ADMIT DATE: 07/31/2016 OR/Procedure Report DISCHARGE DATE: FAMILY PHYSICIAN: OLGA ELISE MD ATTENDING PHYSICIAN: Ronaldo Salgado /[id number] d: 08/10/161910 t: 08/13/16 1001, OPERATIVE SUMMARY
--- NOTE | ~2016-07-31 | CON ---
PATIENT'S NAME: NORMA PAEZ [facility] AGE: 71 Y [address] ROOM: [id number] [place], [place] [address] LOCATION: [facility] ADMIT DATE: 07/31/2016 Consultation DISCHARGE DATE: FAMILY PHYSICIAN: OLGA ELISE MD ATTENDING PHYSICIAN: Jose F Velazquez DATE OF CONSULTATION: 08/01/2016 REFERRING PHYSICIAN: LORIE BAILEY MD CHIEF COMPLAINT: Medical management in the setting of right hip fracture and end-stage renal disease on inpatient rehab. HISTORY OF PRESENTING ILLNESS: This 71-year-old white female with previous history of coronary artery disease, obstructive sleep apnea, and end-stage renal disease on peritoneal dialysis, was admitted on 07/31/2016 to inpatient rehab from [facility] after an extended hospital stay following right hip fracture with ORIF. She fell on 07/20/2016. She suffered a nondisplaced right hip intertrochanteric fracture. It was recommended to undergo operative intervention by Dr. Bailey. This was performed on 07/22/2016. Postoperatively, her progress was slow. She did receive ongoing follow up and management by the hospitalist team as well as the nephrology service for peritoneal dialysis. She received physical therapy and occupational therapy. Because of her multiple medical comorbidities, deconditioned status, and the need for intensive rehab, she was placed on the inpatient rehab unit. Presently, she reports doing "okay." She does complain of some pain in the hip, but feels that she is making progress. She is weak and requires to assist with transfers and mobilization. She sleeps okay. She denies headaches, dizziness, or lightheadedness. She does have episodes of nausea and feels at times that the food "go down" and comes right back up. She denies deanna abdominal pain. This has been an ongoing problem even prior to this hospital stay. She denies chest pain. Denies palpitations or racing heartbeat. She utilizes CPAP at bedtime and slept pretty well last night. Stools have been a little sluggish and she complains that there were "harder." She does not void any significant amounts. No numbness or tingling in her extremities or any associated physical or constitutional complaints. PAST MEDICAL HISTORY: ALLERGIES: HYDROCODONE, JANUVIA, PRADAXA. PATIENT'S NAME: NORMA PAEZ [facility] AGE: 71 Y [address] ROOM: [id number] [place] [address] LOCATION: [facility] ADMIT DATE: 07/31/2016 Consultation DISCHARGE DATE: FAMILY PHYSICIAN: OLGA ELISE MD ATTENDING PHYSICIAN: Jose F Velazquez ILLNESSES: 1. Coronary artery disease, status post PCI with stents. 2. Paroxysmal atrial fibrillation on long-term anticoagulation with Eliquis. 3. End-stage renal disease, on peritoneal dialysis. 4. Diabetes mellitus type 2. 5. Essential hypertension. 6. Obstructive sleep apnea, uses CPAP. 7. Chronic diastolic congestive heart failure. 8. Restless legs syndrome. 9. Obesity. 10. Moderate protein-calorie malnutrition. 11. Hyperuricemia. 12. Diabetic peripheral neuropathy. CURRENT MEDICATIONS: 1. Acetaminophen 1000 mg p.o. q.6 hours p.r.n. pain. 2. Allopurinol 300 mg p.o. daily. 3. Eliquis 2.5 mg p.o. b.i.d. 4. Artificial Tears p.r.n. 5. Atorvastatin 20 mg p.o. daily. 6. TriphroCaps soft gels 1 mg p.o. daily. 7. Calcitriol 0.25 mcg p.o. daily. 8. Lexapro 10 mg p.o. daily. 9. Gabapentin 100 mg p.o. q.h.s. 10. Glimepiride 4 mg p.o. daily. 11. Insulin NovoLog per sliding scale. 12. Insulin glargine 10 units subcu q.h.s. 13. Probiotic daily. 14. Metoprolol 12.5 mg p.o. b.i.d. 15. Potassium 20 mEq p.o. daily. 16. Mysoline 50 mg p.o. q.a.m. 17. Ropinirole 0.25 mg p.o. t.i.d. 18. Renvela 800 mg p.o. t.i.d. and 1600 mg p.o. b.i.d. with snacks. 19. Torsemide 200 mg p.o. daily. FAMILY HISTORY: Significant for heart disease in both of her parents. They each lived into their 90s however. SOCIAL HISTORY: She is , lives in [place]. There is no significant history of tobacco or alcohol use. REVIEW OF SYSTEMS: As per HPI. All other organ systems reviewed and are negative. PATIENT'S NAME: NORMA PAEZ [facility] AGE: 71 Y [address] ROOM: [id number] [place], [place] [address] LOCATION: [facility] ADMIT DATE: 07/31/2016 Consultation DISCHARGE DATE: FAMILY PHYSICIAN: OLGA ELISE MD ATTENDING PHYSICIAN: Jose F Velazquez OBJECTIVELY: VITAL SIGNS: Temperature 98, pulse 75, respirations 18, blood pressure 113/51, O2 saturation 92% on room air. GENERAL: She is anxious, but cooperative, lying in bed, in no acute distress. SKIN: Supple, pale, warm, dry. No obvious rashes. HEENT: Otherwise, normocephalic. Sclerae nonicteric. Pupils equal, round, and reactive to light and accommodation. Extraocular movements appear intact. Nasal turbinates normal. Oropharynx clear. Mucous membranes are pink and moist. NECK: Supple. Plethoric and obese. No masses or adenopathy. No thyromegaly. No JVD. CHEST: Chest wall is symmetrical. HEART: Irregularly irregular. LUNGS: Diminished at the bases. No crackles or wheezes are heard. ABDOMEN: Soft and obese. Diffusely tender but without guarding or rebound. No masses or hepatosplenomegaly. AND RECTAL: Not done. EXTREMITIES: Display 1+ pitting edema. No cyanosis. NEUROLOGICAL: Anxious, but no focal deficits. LABORATORY AND X-RAY DATA: CBC showed a white blood cell count 7.0, hemoglobin 7.8, hematocrit 24.5, platelets 212. Chemistries reveal BUN and creatinine 69 and 7.7 respectively. Sodium and potassium of 132 and 4.2, chloride and CO2 are 93 and 25, calcium is 8.7, glucose was 196. ASSESSMENT AND PLAN: 1. Diabetes mellitus type 2, good control on insulin and sliding scale. Encouraged adherence to diabetic diet, try to promote mobilization and physical activity and follow clinically. We will make adjustments if necessary. 2. Paroxysmal atrial fibrillation. Rate controlled stable on long-term anticoagulation with Eliquis. No evidence for bleeding. 3. Chronic diastolic congestive heart failure. She appears compensated and oxygenating adequately. Her weight has increased significantly over the course of this hospital stay, but her fluid volume balance is relatively stable. 4. End-stage renal disease, on peritoneal dialysis. Managed by Nephrology. Plan to continue with peritoneal dialysis and follow her electrolytes periodically. 5. Dysphagia, esophageal phase. This could represent reflux or even diabetic gastroparesis. We will request speech therapy evaluation initially, but consider additional workup including esophagram or even GI workup at some point. PATIENT'S NAME: NORMA PAEZ [facility] AGE: 71 Y [address] ROOM: [address] [address] LOCATION: [facility] ADMIT DATE: 07/31/2016 Consultation DISCHARGE DATE: FAMILY PHYSICIAN: OLGA ELISE MD ATTENDING PHYSICIAN: Jose F Velazquez 6. Obstructive sleep apnea. Stable with CPAP at h.s. 7. Right hip fracture status post ORIF stable on adequate analgesia. Plan to continue physical therapy and occupational therapy for strength and rehabilitation. Continue restorative cares with the ultimate goal of discharge to home when she is physically able. 8. Essential hypertension, adequately controlled. We will follow the trend and make adjustments as necessary. 9. Coronary artery disease, clinically asymptomatic and stable. She is on statin therapy. She is not currently on aspirin therapy because of anticoagulation with Eliquis and the relative bleeding risk. Consider reinitiating this at some point. Additionally, she is not on beta- lynette therapy. We will follow. 10. Restless legs syndrome. Continue symptomatic measures. 11. Depression/anxiety. Continue Lexapro on a scheduled basis. 12. Deep venous thrombosis prophylaxis. She is fully anticoagulated with Eliquis. Mobilize as she is physically able. MD JUANY BROUSSARD/fernando /[id number] d: 08/01/16 1352 t: 08/01/162000, CONSULTATION REPORT
--- NOTE | ~2016-07-31 | HP ---
PATIENT'S NAME: NORMA PAEZ [facility] AGE: 71 Y [address] ROOM: [id number] [place], [place] [address] LOCATION: [facility] ADMIT DATE: 07/31/2016 History & Physical DISCHARGE DATE: FAMILY PHYSICIAN: OLGA ELISE MD ATTENDING PHYSICIAN: Nalini Laura DATE OF SERVICE: HISTORY OF PRESENT ILLNESS: This 71-year-old lady, whom I saw for consult for Dr. Howell, hospitalist, and on 07/30/2016 was admitted while I was on vacation. There is no history and physical, and I am dictating history and physical on 08/11/2016. She was admitted to rehab unit on 07/31/2016. She is admitted with: 1. Unstable gait. 2. Dependent in activities of daily self-care. 3. Status post right intertrochanteric fracture secondary to an incidental fall. PAST MEDICAL HISTORY: She has previous history of the followin. Renal insufficiency. At the present time, she has an arteriovenous fistula for possible hemodialysis. 2. Diabetes, type 2. 3. Hypertension. 4. Chronic kidney failure. 5. Paroxysmal atrial fibrillation, status post pacemaker placement per history. 6. Obstructive sleep apnea. 7. Dyslipidemia. 8. History of restless legs syndrome. 9. Depression plus possibly anxieties on and off. 10. Toe-touch at the present time on the right lower extremity. ALLERGIES: SHE IS ALLERGIC TO: 1. HYDROCODONE. 2. TYLENOL. 3. PRADAXA. 4. JANUVIA. PHYSICAL EXAMINATION: VITAL SIGNS: On admission, vitals were as follows: Blood pressure was 105/47 and temperature 36.7 degrees Celsius. She has a pulse of 74 and respiration PATIENT'S NAME: NORMA PAEZ [facility] AGE: 71 Y [address] ROOM: [id number] [place], [place] [address] LOCATION: [facility] ADMIT DATE: 07/31/2016 History & Physical DISCHARGE DATE: FAMILY PHYSICIAN: OLGA ELISE MD ATTENDING PHYSICIAN: Nalini Laura rate of 12. She was 5 feet 3 inches tall and weighed 84.6 kg. HEENT: Head: Normocephalic. Cranial nerves 2 through 12 were within normal limits. NECK: Supple. Trachea was central. CHEST: Moving equally and regular. LUNGS: Clinically clear. HEART: Regular sinus rhythm. ABDOMEN: Soft. EXTREMITIES: She could move bilateral lower extremities; however, right lower extremity, she was guarding against excessive movement secondary to pain. Today, on 08/11, her vitals are as follows: Blood pressure 139/73, temperature 98.1, pulse 74, and respiration rate 17. Her Accu-Chek at 0626 hours was 102, ranging 208 to 95. LABORATORY DATA: She is with CBC as follows: White BC 8.3, RBC 2.31, hemoglobin 7.2, hematocrit 23.6, and platelets 175. CMS: Sodium 132, potassium 6.0, chloride 94, CO2 of 25, BUN 90, creatinine 8.9, and glucose 87. Hospitalist following. She is able to walk up to 6 feet x1 and 8 feet x1 with toe-touch on the right side and moderate assistance. At the present time, we will put on intensive PT and OT 3 hours per day, 15 hours per week, for the coming 3 to 4 weeks, aiming to discharge home at modified independence. She is on ADA diet and toe-touch weightbearing on the right side. FINAL DIAGNOSES: For now, 1. Right hip fracture, status post open reduction and internal fixation on 07/22. 2. Diabetes, type 2. 3. Chronic end-stage renal failure, at the present time with arteriovenous fistula for possible hemodialysis. 4. Atrial fibrillation. 5. Coronary artery disease. 6. Hypertension. 7. Sleep apnea, on CPAP. 8. Restless legs syndrome. 9. Paroxysmal atrial fibrillation, status post pacemaker placement. 10. Depression with anxiety. PATIENT'S NAME: NORMA PAEZ [facility] AGE: 71 Y [address] ROOM: [place] [address] LOCATION: [facility] ADMIT DATE: 07/31/2016 History & Physical DISCHARGE DATE: FAMILY PHYSICIAN: OLGA ELISE MD ATTENDING PHYSICIAN: Nalini Laura MEDICATIONS: She is on the following medications: 1. Sodium chloride IV 1000 mL bag per iron protocol. 2. Delflex 2.5% and dextrose 5 L bag per dialysis program. 3. Ferrlecit IV on Tuesday, Tuesday, and Tuesday. 4. Ferrlecit IV in sodium ferric gluconate on Tuesday and Tuesday 110 mL/hour. 5. Zyloprim 300 mg p.o. daily. 6. Eliquis 2.5 mg p.o. twice daily. 7. Atorvastatin calcium tablet 20 mg p.o. daily. 8. Rocaltrol 0.25 mg capsule every day. 9. Colace 100 mg p.o. b.i.d. 10. Lexapro 10 mg p.o. daily. 11. Pepcid 20 mg p.o. q.48 hours. 12. Levemir 10 units subcu every night at bedtime. 13. Lopressor 12.5 mg p.o. twice daily. 14. ProAmatine 10 mg p.o. daily. 15. Mysoline 50 mg p.o. daily. 16. Neurontin 100 mg p.o. at night. 17. Requip 0.25 mg p.o. 3 times daily. 18. Renvela 2400 mg p.o. 3 times daily with meals. The patient's home medications are: 1. Humalog KwikPen insulin as directed. 2. Sodium chloride IV NaCl 0.9% 250 mL bag as per protocol. 3. Tylenol Extra Strength 500 to 1000 mg q.6 hours. 4. Dulcolax suppository 10 mg p.r.n. 5. Dextrose 50% 25 mL IV for hypoglycemia p.r.n. 6. Benadryl 50 mg IV at bedside for p.r.n. use. 7. Adrenaline 0.3 to 0.5 mg IV at bedside and p.r.n. 8. Glucagon 1 mg subcu p.r.n. for hypoglycemia. 9. Glucose 16 g p.o. for hypoglycemia p.r.n. 10. Solu-Cortef 100 mg IV bedside p.r.n. 11. Milk of magnesia 30 mL as needed p.r.n. p.o. 12. Zofran 4 mg IV q.6 hours as needed p.r.n. 13. Preparation H apply locally p.r.n. as needed. 14. Renvela 1600 mg p.o. twice daily as needed p.r.n. 15. Fleet Enema 133 mL rectally p.r.n. 16. CPAP as needed. 17. Artificial Tears 0.5 inch ophthalmic as needed for both eyes. Plan of care and details of plan of care were discussed with the patient in detail. She verbalized understanding and agreement. PATIENT'S NAME: NORMA PAEZ [facility] AGE: 71 Y [address] ROOM: [place] [address] LOCATION: [facility] ADMIT DATE: 07/31/2016 History & Physical DISCHARGE DATE: FAMILY PHYSICIAN: OLGA ELISE MD ATTENDING PHYSICIAN: Nalini Laura NALINI LAURA MD WMS/modl /[id number] D: [id number] T: 720 HISTORY & PHYSICAL
[~2016-07-31 14:26] MED LIST changes: +NEURONTIN100 MG PO; +NOVOLOG100 UNIT/M SUB-Q; +TEARS AGAIN EYE5 GM OPHTH; +TORSEMIDE100 MG PO
[2016-08-01 08:40] LABS: BASOPHIL % 0.1 %; EOSINOPHIL # 0.3 K/uL (0.0-0.5); EOSINOPHIL % 4.4 %; HEMATOCRIT 24.5 % (33.0-46.0); IMMATURE GRANULOCYTE # 0.1 K/uL (0.0-0.3); IMMATURE GRANULOCYTE % 1.6 %; LYMPHOCYTE # 1.1 K/uL (0.8-4.0); LYMPHOCYTE % 15.8 %; MCV 100.8 fl (83.0-98.0); MONOCYTE # 0.8 K/uL (0.0-1.0); MONOCYTE % 10.8 %; MPV 10.7 fl (9.4-12.4); NEUTROPHIL # (ANC) 4.7 K/uL (1.8-7.8); NEUTROPHIL % 67.3 %; NRBC % 0.9 /100WBC (0-0.00); RBC 2.43 M/uL (3.50-5.50); RDW-CV 16.1 % (11.9-14.6)
[2016-08-01 08:48] LABS: HEMOGLOBIN 7.8 g/dL (10.0-15.0); MCH 32.1 pg (27.0-34.0); MCHC 31.8 gm/dL (32.0-36.5); PLATELET COUNT 212 K/uL (150-450)
[2016-08-01 08:59] LABS: ALBUMIN 2.1 gm/dL (3.5-5.0); ALK PHOS 236 IU/L (33-138); ANION GAP 18.8 (10.0-19.0); AST 23 IU/L (10-40); CALCIUM 9.1 mg/dL (8.5-10.5); CHLORIDE 94 mMol/L (96-110); CO2 26 mMol/L (22-32); POTASSIUM 4.8 mMol/L (3.7-5.1); SODIUM 134 mMol/L (135-145)
[2016-08-01 09:02] LABS: ALT < 10 IU/L (12-78); BLOOD UREA NITROGEN 74 mg/dL (6-24); CREATININE 8.3 mg/dL (0.5-1.1); ESTIMATED GFR (MDRD EQUATION) 5; TOTAL BILIRUBIN 0.4 mg/dL (0.0-1.5)
[2016-08-09 06:52] LABS: ALBUMIN 2.6 gm/dL (3.5-5.0); ANION GAP 20.2 (10.0-19.0); CALCIUM 8.9 mg/dL (8.5-10.5); PHOSPHORUS 4.3 mg/dL (2.5-4.9); POTASSIUM 5.2 mMol/L (3.7-5.1)
[2016-08-09 06:53] LABS: CREATININE 8.7 mg/dL (0.5-1.1)
[2016-08-11 05:56] LABS: BASOPHIL % 0.2 %; EOSINOPHIL # 0.3 K/uL (0.0-0.5); HEMATOCRIT 23.6 % (33.0-46.0); IMMATURE GRANULOCYTE % 0.5 %; LYMPHOCYTE # 1.2 K/uL (0.8-4.0); LYMPHOCYTE % 13.9 %; MCV 102.2 fl (83.0-98.0); MONOCYTE # 0.9 K/uL (0.0-1.0); MONOCYTE % 11.2 %; MPV 10.5 fl (9.4-12.4); NEUTROPHIL # (ANC) 5.8 K/uL (1.8-7.8); NEUTROPHIL % 70.2 %; NRBC % 0 /100WBC (0-0.00); PLATELET COUNT 175 K/uL (150-450); RBC 2.31 M/uL (3.50-5.50); WBC 8.3 K/uL (4.0-11.0)
[2016-08-11 05:57] LABS: HEMOGLOBIN 7.2 g/dL (10.0-15.0); MCH 31.2 pg (27.0-34.0); MCHC 30.5 gm/dL (32.0-36.5); RDW-CV 18.1 % (11.9-14.6)
[2016-08-11 06:07] LABS: ALBUMIN 2.4 gm/dL (3.5-5.0); CALCIUM 9.1 mg/dL (8.5-10.5); PHOSPHORUS 4.4 mg/dL (2.5-4.9)
[2016-08-11 06:09] LABS: CREATININE 8.9 mg/dL (0.5-1.1)
[2016-08-12 07:28] LABS: ALBUMIN 2.4 gm/dL (3.5-5.0); ANION GAP 18.3 (10.0-19.0); PHOSPHORUS 4.6 mg/dL (2.5-4.9); POTASSIUM 4.3 mMol/L (3.7-5.1)
[2016-08-12 07:29] LABS: CREATININE 8.4 mg/dL (0.5-1.1)
[2016-08-13 05:03] LABS: BASOPHIL % 0.3 %; EOSINOPHIL # 0.2 K/uL (0.0-0.5); EOSINOPHIL % 3.3 %; HEMATOCRIT 22.6 % (33.0-46.0); IMMATURE GRANULOCYTE % 0.5 %; LYMPHOCYTE # 1.1 K/uL (0.8-4.0); LYMPHOCYTE % 18.7 %; MCH 32.6 pg (27.0-34.0); MCHC 31.4 gm/dL (32.0-36.5); MCV 103.7 fl (83.0-98.0); MONOCYTE # 0.6 K/uL (0.0-1.0); MONOCYTE % 9.8 %; MPV 10.9 fl (9.4-12.4); NEUTROPHIL # (ANC) 4.1 K/uL (1.8-7.8); NEUTROPHIL % 67.4 %; NRBC % 0 /100WBC (0-0.00); PLATELET COUNT 155 K/uL (150-450); RBC 2.18 M/uL (3.50-5.50); RDW-CV 18.1 % (11.9-14.6)
[2016-08-13 05:07] LABS: HEMOGLOBIN 7.1 g/dL (10.0-15.0)
[2016-08-13 05:14] LABS: ANION GAP 17.1 (10.0-19.0); CALCIUM 8.7 mg/dL (8.5-10.5); POTASSIUM 4.1 mMol/L (3.7-5.1)
[2016-08-13 05:18] LABS: CREATININE 8.5 mg/dL (0.5-1.1)
[2016-08-14 05:41] LABS: BASOPHIL % 0.4 %; EOSINOPHIL # 0.5 K/uL (0.0-0.5); EOSINOPHIL % 8.8 %; HEMATOCRIT 21.1 % (33.0-46.0); IMMATURE GRANULOCYTE % 0.7 %; MCH 32.5 pg (27.0-34.0); MCHC 31.3 gm/dL (32.0-36.5); MCV 103.9 fl (83.0-98.0); MONOCYTE # 0.7 K/uL (0.0-1.0); MONOCYTE % 12.5 %; MPV 11.4 fl (9.4-12.4); NEUTROPHIL # (ANC) 3.5 K/uL (1.8-7.8); NEUTROPHIL % 60.6 %; NRBC % 0 /100WBC (0-0.00); PLATELET COUNT 133 K/uL (150-450); RBC 2.03 M/uL (3.50-5.50); RDW-CV 17.9 % (11.9-14.6); WBC 5.7 K/uL (4.0-11.0)
[2016-08-14 05:42] LABS: HEMOGLOBIN 6.6 g/dL (10.0-15.0)
[2016-08-15 05:30] LABS: BASOPHIL % 0.4 %; EOSINOPHIL # 0.5 K/uL (0.0-0.5); EOSINOPHIL % 8.2 %; HEMATOCRIT 22.6 % (33.0-46.0); IMMATURE GRANULOCYTE % 0.5 %; LYMPHOCYTE % 17.4 %; MCH 32.6 pg (27.0-34.0); MCHC 31.4 gm/dL (32.0-36.5); MCV 103.7 fl (83.0-98.0); MONOCYTE # 0.7 K/uL (0.0-1.0); MONOCYTE % 12.3 %; MPV 10.6 fl (9.4-12.4); NEUTROPHIL # (ANC) 3.4 K/uL (1.8-7.8); NEUTROPHIL % 61.2 %; NRBC % 0 /100WBC (0-0.00); PLATELET COUNT 150 K/uL (150-450); RBC 2.18 M/uL (3.50-5.50); RDW-CV 18.2 % (11.9-14.6); WBC 5.6 K/uL (4.0-11.0)
[2016-08-15 05:32] LABS: HEMOGLOBIN 7.1 g/dL (10.0-15.0)
[2016-08-15 05:44] LABS: ALBUMIN 2.2 gm/dL (3.5-5.0); ANION GAP 19.3 (10.0-19.0); PHOSPHORUS 4.7 mg/dL (2.5-4.9); POTASSIUM 4.3 mMol/L (3.7-5.1)
[2016-08-15 05:52] LABS: CREATININE 8.7 mg/dL (0.5-1.1)
[2016-08-16 06:08] LABS: BASOPHIL % 0.4 %; EOSINOPHIL # 0.4 K/uL (0.0-0.5); EOSINOPHIL % 8.3 %; HEMATOCRIT 22.3 % (33.0-46.0); HEMOGLOBIN 6.9 g/dL (10.0-15.0); IMMATURE GRANULOCYTE % 0.8 %; LYMPHOCYTE # 1.1 K/uL (0.8-4.0); LYMPHOCYTE % 20.6 %; MCH 32.2 pg (27.0-34.0); MCHC 30.9 gm/dL (32.0-36.5); MCV 104.2 fl (83.0-98.0); MONOCYTE # 0.8 K/uL (0.0-1.0); MONOCYTE % 15.5 %; MPV 11.3 fl (9.4-12.4); NEUTROPHIL # (ANC) 2.8 K/uL (1.8-7.8); NEUTROPHIL % 54.4 %; NRBC % 0 /100WBC (0-0.00); PLATELET COUNT 150 K/uL (150-450); RBC 2.14 M/uL (3.50-5.50); RDW-CV 17.7 % (11.9-14.6); WBC 5.2 K/uL (4.0-11.0)
[2016-08-16 06:29] LABS: ALBUMIN 2.1 gm/dL (3.5-5.0); ANION GAP 17.4 (10.0-19.0); CALCIUM 8.9 mg/dL (8.5-10.5); CHLORIDE 95 mMol/L (96-110); CO2 27 mMol/L (22-32); POTASSIUM 4.4 mMol/L (3.7-5.1); SODIUM 135 mMol/L (135-145)
[2016-08-16 06:31] LABS: ALK PHOS 210 IU/L (33-138); AST 14 IU/L (10-40); TOTAL BILIRUBIN 0.4 mg/dL (0.0-1.5); TOTAL PROTEIN 5.5 g/dL (6.0-8.4)
[2016-08-16 06:33] LABS: ALT < 10 IU/L (12-78); BLOOD UREA NITROGEN 72 mg/dL (6-24); CREATININE 8.8 mg/dL (0.5-1.1); ESTIMATED GFR (MDRD EQUATION) 4
[2016-08-16] MEDS ORDERED: COLACE100 MG PO (15:48)
[2016-08-16] MEDS ORDERED: PEPCID20 MG PO (15:52)
[2016-08-16] MEDS ORDERED: PROAMATINE5 MG PO (15:58)
[2016-08-16] MEDS ORDERED: NORCO 5-325 TA1 EACH PO (16:02)
[2016-08-16] MEDS ORDERED: ZOFRAN4 MG PO (16:03)
[2016-08-16] MEDS ORDERED: MIRALAX17 GM PO (16:04)
[2016-08-17 05:41] LABS: BASOPHIL % 0.4 %; EOSINOPHIL # 0.4 K/uL (0.0-0.5); HEMATOCRIT 22.6 % (33.0-46.0); IMMATURE GRANULOCYTE % 0.8 %; LYMPHOCYTE # 0.9 K/uL (0.8-4.0); LYMPHOCYTE % 18.2 %; MCH 32.7 pg (27.0-34.0); MCHC 31.4 gm/dL (32.0-36.5); MCV 104.1 fl (83.0-98.0); MONOCYTE # 0.8 K/uL (0.0-1.0); MONOCYTE % 15.6 %; MPV 10.6 fl (9.4-12.4); NEUTROPHIL # (ANC) 2.9 K/uL (1.8-7.8); NRBC % 0 /100WBC (0-0.00); PLATELET COUNT 164 K/uL (150-450); RBC 2.17 M/uL (3.50-5.50); RDW-CV 17.7 % (11.9-14.6)
[2016-08-17 05:42] LABS: HEMOGLOBIN 7.1 g/dL (10.0-15.0)
[2016-10-22] MEDS ORDERED: PROTONIX40 MG PO (11:28)
[2016-10-22] MEDS ORDERED: TRIPHROCAPS SOFT1 MG PO (11:30)
[2016-10-22] MEDS ORDERED: TOUJEO SOL300 UNIT/1 SUB-Q (11:30)
[2016-10-22] MEDS ORDERED: ACID REDUCER10 MG PO (11:32)
[2016-10-22] MEDS ORDERED: ARTIFICIAL TEAR15 M2 OPHTH (11:33)
[2016-10-22] MEDS ORDERED: PAXIL10 MG PO (11:35)
[2016-10-22] MEDS ORDERED: HUMALOG100 UNIT/2 SUB-Q (11:45)
== END 2016-08-17 11:00 | disposition disaster alternative care site (69) | DRG 559 ==
LOC: GIRP 14:26
PROVIDERS: Family Medicine; Internal Medicine Nephrology; Nurse Practitioner; Surgery Vascular Surgery; ADMIT Physical Medicine & Rehabilitation
PROC: 3E1M39Z Irrigation of Peritoneal Cavity using Dialysate, Percutaneous Approach (ICD-10-PCS; principal; 2016-07-31)
PROC: F06Z6ZZ Communicative/Cognitive Integration Skills Treatment (ICD-10-PCS; 2016-07-31)
PROC: F07L6ZZ Therapeutic Exercise Treatment of Musculoskeletal System - Lower Back / Lower Extremity (ICD-10-PCS; 2016-07-31)
PROC: F07Z9ZZ Gait Training/Functional Ambulation Treatment (ICD-10-PCS; 2016-07-31)
PROC: F08Z4ZZ Home Management Treatment (ICD-10-PCS; 2016-07-31)
PROC: B51W1ZZ Fluoroscopy of Dialysis Shunt/Fistula using Low Osmolar Contrast (ICD-10-PCS; 2016-08-10)
DX: Z47.89 Encounter for other orthopedic aftercare (principal); N18.6 End stage renal disease; I13.2 Hypertensive heart and chronic kidney disease with heart failure and with stage 5 chronic kidney disease, or end stage renal disease; E44.0 Moderate protein-calorie malnutrition; E11.22 Type 2 diabetes mellitus with diabetic chronic kidney disease; E11.42 Type 2 diabetes mellitus with diabetic polyneuropathy; I27.2 Other secondary pulmonary hypertension; I48.0 Paroxysmal atrial fibrillation; E87.5 Hyperkalemia; I50.32 Chronic diastolic (congestive) heart failure; S72.144D Nondisplaced intertrochanteric fracture of right femur, subsequent encounter for closed fracture with routine healing; W01.0XXD Fall on same level from slipping, tripping and stumbling without subsequent striking against object, subsequent encounter; Z99.2 Dependence on renal dialysis; Z79.01 Long term (current) use of anticoagulants; I25.10 Atherosclerotic heart disease of native coronary artery without angina pectoris; G47.33 Obstructive sleep apnea (adult) (pediatric); R26.9 Unspecified abnormalities of gait and mobility; Z79.4 Long term (current) use of insulin; Z68.35 Body mass index [BMI] 35.0-35.9, adult; E66.9 Obesity, unspecified; G25.81 Restless legs syndrome; D50.9 Iron deficiency anemia, unspecified; E78.5 Hyperlipidemia, unspecified; M10.9 Gout, unspecified; K21.9 Gastro-esophageal reflux disease without esophagitis; Z95.0 Presence of cardiac pacemaker; Z79.899 Other long term (current) drug therapy; Z95.5 Presence of coronary angioplasty implant and graft; R13.14 Dysphagia, pharyngoesophageal phase; F41.8 Other specified anxiety disorders; Z82.49 Family history of ischemic heart disease and other diseases of the circulatory system
CPT/HCPCS: C1751; J0610; J0690; J1644; J2405; J2916; J3010; J7030; J7040; J7050

== ENCOUNTER → 2016-08-11 | Day surgery (SDC) | payer MEDICARE, OTHER ==
[~2016-08-11] VITALS: Ht 160 cm; Wt 84.6 kg
[~2016-08-11] MED LIST changes: +ACID REDUCER10 MG PO; +ARTIFICIAL TEAR15 M2 OPHTH; +BAYER CHILD81 MG PO; +HUMALOG100 UNIT/2 SUB-Q; +PAXIL10 MG PO; +PEPCID20 MG PO; +PROAMATINE5 MG PO; +PROTONIX40 MG PO
== END ==
LOC: GPOC 08-10 15:00 → GSDC 07:00
DX: T82.598A Other mechanical complication of other cardiac and vascular devices and implants, initial encounter (principal); Z53.9 Procedure and treatment not carried out, unspecified reason
CPT/HCPCS: J0690; J1644; J2720; J7030

== ENCOUNTER → 2016-08-12 | Day surgery (SDC) | payer MEDICARE, OTHER ==
--- NOTE | ~2016-08-12 | OR ---
PATIENT'S NAME: NORMA PAEZ [facility] AGE: 71 Y [address] ROOM: [place] [address] LOCATION: [facility] [place] [place] ADMIT DATE: 08/12/2016 OR/Procedure Report DISCHARGE DATE: FAMILY PHYSICIAN: OLGA ELISE MD ATTENDING PHYSICIAN: FERNANDO ASCENCIO SURGEON: Fernando Ascencio MD MEDICAL DOCTOR: DATE OF PROCEDURE: 08/12/2016 PREOPERATIVE DIAGNOSIS: End-stage renal disease. POSTOPERATIVE DIAGNOSIS: End-stage renal disease. PROCEDURE: Left arm fistula ligation with replacement of new fistula with AV graft. PILLOWCASE SEWER: ELAINE Babin. ANESTHESIA: General. ESTIMATED FLUID LOSS: 20 mL. OPERATIVE FINDINGS: Good thrill and bruit in the fistula. Strong radial signal at the end of the case. DESCRIPTION OF PROCEDURE: The patient was brought to the operating room, placed supine on the operative table, prepped and draped in a sterile manner after being placed under general anesthesia. The patient received preoperative antibiotics. We made a transverse incision in the antecubital fossa, dissected down the fascia, incised the fascia, dissected out the cephalic outflow vein which brought the non-mature fistula and ligated it with a single Prolene tie. We then dissected out the brachial artery more proximally in a counter incision and then dissected out the axillary vein with a vertical incision in the axilla. We then tunneled it with 4.7 [place] graft from the axilla to the brachial incision. We gave 5000 units of heparin. We clamped proximally and distally on the artery and made an arteriotomy of 4 mm and then did a standard running 6-0 Prolene anastomosis. We repeated in a similar fashion with the axillary vein and created a 7 mm anastomosis, removed the clamps. There was excellent flow in the graft. There was a strong bruit signal in the axillary vein. We reversed the heparin. Thrombin was used locally in the wound as well as Surgicel. Deep layers were closed with Vicryl. Skin was closed with interrupted nylon's. The patient tolerated the procedure well and transferred to the recovery room and then up to the floor. PATIENT'S NAME: NORMA PAEZ [facility] AGE: 71 Y [address] ROOM: [place] [address] LOCATION: [facility] [place] [place] ADMIT DATE: 08/12/2016 OR/Procedure Report DISCHARGE DATE: FAMILY PHYSICIAN: OLGA ELISE MD ATTENDING PHYSICIAN: FERNANDO ASCENCIO FERNANDO ASCENCIO MD FKM/modl /[id number] d: 08/12/16 2306 t: 08/13/16 1001, OPERATIVE SUMMARY
--- NOTE | 2016-08-12 15:22 | NUR ---
LATE ENTRY 1453 TOOK OVER CARE FOR Trinity HATCH RN. REPORT RECIEVED. PATINET VS ARE STABLE. TAKING WATER WITHOUT DIFFICUTLY. DENIES N/V.
== END | disposition disaster alternative care site (69) ==
LOC: GSDC 10:59
PROC: 03R Upper Arteries, Replacement (ICD-10-PCS; principal; 2016-08-12)
PROC: 03L80ZZ Occlusion of Left Brachial Artery, Open Approach (ICD-10-PCS; 2016-08-12)
DX: E11.22 Type 2 diabetes mellitus with diabetic chronic kidney disease (principal); I13.2 Hypertensive heart and chronic kidney disease with heart failure and with stage 5 chronic kidney disease, or end stage renal disease; I50.32 Chronic diastolic (congestive) heart failure; N18.6 End stage renal disease; I25.10 Atherosclerotic heart disease of native coronary artery without angina pectoris; I48.91 Unspecified atrial fibrillation; E78.5 Hyperlipidemia, unspecified; G47.33 Obstructive sleep apnea (adult) (pediatric); F41.9 Anxiety disorder, unspecified; F32.9 Major depressive disorder, single episode, unspecified; Z90.49 Acquired absence of other specified parts of digestive tract; Z95.0 Presence of cardiac pacemaker; Z79.01 Long term (current) use of anticoagulants; Z99.2 Dependence on renal dialysis; Z98.890 Other specified postprocedural states; Z88.8 Allergy status to other drugs, medicaments and biological substances
CPT/HCPCS: J0690; J1644; J2720; J3010; J7030; L8670

== ENCOUNTER → 2016-08-31 | Outpatient (CLI) | payer MEDICARE, OTHER | LOC: GRAD 13:32 | DX: I49.5 Sick sinus syndrome (principal); Z95.0 Presence of cardiac pacemaker; I42.9 Cardiomyopathy, unspecified ==

== ENCOUNTER 2016-10-26 09:17 | Outpatient (CLI) | payer MEDICARE, OTHER ==
[~2016-10-26] VITALS: Ht 162.6 cm; Wt 91.5 kg
--- NOTE | ~2016-10-26 | OR ---
PATIENT'S NAME: NORMA PAEZ [facility] AGE: 71 Y [address] ROOM: [place] [address] LOCATION: [facility] ADMIT DATE: 10/26/2016 OR/Procedure Report DISCHARGE DATE: 10/26/2016 FAMILY PHYSICIAN: Julio Cesar MD ATTENDING PHYSICIAN: Fernando Ascencio SURGEON: Fernando Ascencio MD HEATING ENGINEER: DATE OF PROCEDURE: 10/26/2016 PREOPERATIVE DIAGNOSIS: High-grade vessel in the left arm arteriovenous graft associated with swelling. POSTOPERATIVE DIAGNOSIS: High-grade stenosis associated with pacer wires, unable to angioplasty due to pacer wires. OPERATIONS ASSISTANT: laborer ammunition assembly staff. ANESTHESIA: MAC local. ESTIMATED BLOOD LOSS: 10 mL. OPERATIVE FINDINGS: Stenosis located along the area of the pacer wire placement, unable to angioplasty at this time for fear of causing dysrhythmia. DESCRIPTION OF PROCEDURE: The patient was brought to bean sprout laborer, placed supine on the bean sprout laborer table, prepped and draped in a sterile manner. Preoperative time-out was performed. The patient received preoperative antibiotics. We used ultrasound guidance to gain access to the left arm AV graft. We infiltrated the skin with 1% lidocaine. We used a micropuncture kit to gain access. We then performed a series of fistulograms which showed a patent brachial artery, patent graft, patent venous anastomosis. There was a 50-70% stenosis of the outflow vein tract centrally, however, her pacer wires were located, we chose not to angioplasty at this time since this graft is just simply a backup graft for her rather than to disrupt her pacer wires and cause her a possible dysrhythmia. We removed the micropuncture sheath. We held pressure for 10 minutes. The patient tolerated the procedure well. We will continue to follow the patient. If her arm swelling does not improve or her fistula stops working, we will then have to angioplasty this region and may be consider removing the pacer. FERNANDO ASCENCIO MD PATIENT'S NAME: NORMA PAEZ [facility] AGE: 71 Y [address] ROOM: [place] [address] LOCATION: [facility] ADMIT DATE: 10/26/2016 OR/Procedure Report DISCHARGE DATE: 10/26/2016 FAMILY PHYSICIAN: Julio Cesar MD ATTENDING PHYSICIAN: Fernando Ascencio/hoal /[id number] d: 10/26/16 2324 t: 10/29/16 1230, OPERATIVE SUMMARY
[~2016-10-26 09:17] MED LIST changes: -BAYER CHILD81 MG PO
== END 2016-10-26 14:10 | disposition disaster alternative care site (69) ==
LOC: GPOC 09:17 → GPCU 09:17 → GPOC 13:00
DX: T82.857A Stenosis of other cardiac prosthetic devices, implants and grafts, initial encounter (principal)
CPT/HCPCS: J0690; J1644; J2001; J2250; J3010; J7030

== ENCOUNTER 2016-11-26 07:59 | Observation (INO) | payer MEDICARE, OTHER ==
[~2016-11-26] VITALS: Ht 162.6 cm; Wt 86.6 kg
--- NOTE | ~2016-11-26 | HP ---
PATIENT'S NAME: NORMA PAEZ [facility] AGE: 71 Y [address] ROOM: [place] [address] LOCATION: GPCU ADMIT DATE: 11/26/2016 History & Physical DISCHARGE DATE: FAMILY PHYSICIAN: OLGA ELISE MD ATTENDING PHYSICIAN: FANTASMA TAI DATE OF SERVICE: CHIEF COMPLAINT: Postop hypotension. HISTORY OF PRESENT ILLNESS: This is a 71-year-old female with end-stage renal disease, on peritoneal dialysis and AV fistula on the left upper extremity, here for a fistulogram. During the fistulogram, the patient was noted to be hypotensive with complaints of palpitations and chest tightness noted during the procedure. The patient's blood pressure was down to 80s/50s briefly during this time as well. The patient did get a bolus of IV fluids and blood pressure responded appropriately. During my evaluation, the patient was lying comfortably in bed. Denied any dizziness, lightheadedness, chest pain, or shortness of breath. She did report that she felt a little chest tightness and a sensation of palpitations at the time her blood pressure dropped. The patient otherwise tells me that she was in her normal state of health and rehabbing very well from her recent orthopedic surgery and otherwise has no other complaints. PAST MEDICAL HISTORY: 1. End-stage renal disease, on peritoneal dialysis. 2. Coronary artery disease, status post stenting. 3. CHF. 4. Atrial fibrillation. 5. Hypertension. 6. Obstructive sleep apnea. 7. Grade 3 diastolic dysfunction. 8. Pulmonary hypertension. 9. Type 2 diabetes. FAMILY HISTORY: No history of heart disease, diabetes, hypertension, or cancer reported in the family. REVIEW OF SYSTEMS: All systems have been reviewed and were all negative except as described in the HPI. SOCIAL HISTORY: PATIENT'S NAME: NORMA PAEZ [facility] AGE: 71 Y [address] ROOM: [address] [address] LOCATION: GPCU ADMIT DATE: 11/26/2016 History & Physical DISCHARGE DATE: FAMILY PHYSICIAN: OLGA ELISE MD ATTENDING PHYSICIAN: FANTASMA TAI The patient denies history of smoking, alcohol, or drug use. PHYSICAL EXAMINATION: VITAL SIGNS: During my evaluation, blood pressure 105/55, had been as low as 80s/50s; heart rate 104; respiratory rate 17; saturating 95% on 1 L of oxygen. GENERAL: The patient is awake, alert, oriented x3, in no acute distress. HEENT: Moist mucous membranes. Conjunctival pallor noted. No scleral icterus. CHEST: Clear to auscultation bilaterally. HEART: S1, S2. Regular rate and rhythm. Tachycardic. ABDOMEN: Soft, nontender, nondistended. EXTREMITIES: Without edema. MUSCULOSKELETAL: Without joint tenderness, effusion, or erythema noted. SKIN: Without rash or lesions. NEURO: Grossly nonfocal. ASSESSMENT AND PLAN: 1. Postoperative hypotension. The patient is symptomatic with blood pressures in the 80s/50s briefly. The patient got a liter of bolus at the PACU with good blood pressure response. We will continue to monitor with the boluses given already and give a little more as needed carefully since she is end-stage. We will admit for observation. Also get a chest x-ray and EKG and troponins since she described some chest tightness during her hypotensive episode. 2. End-stage renal disease, on peritoneal dialysis at home. We will contact Dr. Brush to facilitate this during her hospitalization. The patient also has an AV fistula placed and had a fistulogram done today, which was the main reason for her presentation to the hospital today. 3. Type 2 diabetes. We will continue her home regimen with sliding scale insulin and monitor. 4. Diastolic congestive heart failure. The patient appears a bit hypovolemic. We will give some fluid and monitor. No complaints of shortness of breath or increased oxygen demand at this point. 5. History of atrial fibrillation, on Eliquis 2.5 b.i.d. and we will continue this. 6. Deep venous thrombosis prophylaxis, on Eliquis. MD MCKAY LESTER/fernando PATIENT'S NAME: NORMA PAEZ [facility] AGE: 71 Y [address] ROOM: [id number] [place], [place] [address] LOCATION: [facility] ADMIT DATE: 11/26/2016 History & Physical DISCHARGE DATE: FAMILY PHYSICIAN: OLGA ELISE MD ATTENDING PHYSICIAN: FANTASMA TAI /[id number] D: T: [id number] HISTORY & PHYSICAL
--- NOTE | ~2016-11-26 | DS ---
PATIENT'S NAME: NORMA PAEZ [facility] AGE: 71 Y [address] ROOM: [address] [place] [id number] LOCATION: GPCU ADMIT DATE: 11/26/2016 Discharge Summary DISCHARGE DATE: 11/27/2016 FAMILY PHYSICIAN: Julio Cesar MD ATTENDING PHYSICIAN: Vic Gomes PRINCIPAL DISCHARGE DIAGNOSIS: Postprocedural chest pain; left arm fistulogram with fistuloplasty with central venous angioplasty. SECONDARY DIAGNOSES: 1. Elevated troponin. 2. Hypertension. 3. Atrial fibrillation, chronic. 4. Implanted pacemaker. 5. Coronary artery disease, status post prior percutaneous coronary intervention. 6. Diastolic congestive heart failure, chronic and controlled. 7. Diabetes mellitus, type 2. 8. Restless legs syndrome. 9. Pulmonary hypertension. 10. Obstructive sleep apnea. 11. End-stage renal disease, secondary to vascular versus cardiorenal. 12. Depression and anxiety. 13. Obesity. CONSULTATIONS: None. BRIEF SUMMARY: Ms. Paez is a 71-year-old female who came to the hospital on the 1st for fistulogram, but developed some chest pressure and had nausea and vomiting and a low blood pressure. At the end of the procedure, her blood pressure went down to 80/46, than 82/36, 85/39, and then within 20 minutes was 98/52, 10 minutes after that, her blood pressure was 101/45. After the bolus of IV fluid 1 L, the patient's vital signs responded well. The patient was admitted for observation. She has been doing well. Blood pressures are stable, most recently, 147/65. She has no chest pain. She complains of no dyspnea. Other vital signs are pulse 74, respirations 18, and temperature is 98.4. She also has end-stage renal disease. She has been seen by Dr. Francisco. She had her peritoneal dialysis here in the hospital overnight and tolerated that well. Other cardiac enzymes are negative with CPK of 40, CK-MB of 3.2. They were not checked previously. Renal panel today showed sodium 139, potassium 4.9, chloride 102, CO2 26, glucose 123, calcium 8.4, BUN 65, creatinine 9.3, PATIENT'S NAME: NORMA PAEZ [facility] AGE: 71 Y [address] ROOM: [id number] [place], [place] [address] LOCATION: GPCU ADMIT DATE: 11/26/2016 Discharge Summary DISCHARGE DATE: 11/27/2016 FAMILY PHYSICIAN: Julio Cesar MD ATTENDING PHYSICIAN: Vic Gomes albumin 2.3, phosphorus 5.8, eGFR is 4, and magnesium is 2.4. EKG done on admission showed ventricular pacing and AFib at the rate of 74. Despite my concerns, the patient was determined to go home. She says she understands that if she has any symptoms she would need to return immediately back to the hospital. She agrees to start on aspirin. I have also counseled her about the importance of her CPAP machine and she agrees to attempt to wear it and to try to get better equipment as she has had trouble with nasal mask that she has been wearing. INSTRUCTIONS AT TIME OF DISCHARGE: 1. Diet: Renal, cardiac, and diabetic diet. 2. Activity as tolerated. 3. She is to see Dr. Cesar within a week, she is to see Dr. Urban early next week after the holiday, she is to follow up with Dr. Ascencio in 2 weeks, and the recommendations for dialysis nurse to remove the sutures in [address] to [address] Dr. Ascencio p.r.n. for any issues postoperatively. MEDICATIONS AT THE TIME OF DISCHARGE: 1. Peritoneal dialysis fluids as per Renal directions. 2. Allopurinol 300 mg a day. 3. Eliquis 2.5 mg p.o. b.i.d. 4. Atorvastatin 20 mg everyday. 5. Lexapro 10 mg everyday. 6. Neurontin 100 mg p.o. at h.s. 7. Insulin Toujeo SoloStar 15 units subcu at bedtime. 8. Lispro subcu as per home directions per sliding scale 3 times a day. 9. Protonix 40 mg q.a.m. 10. Mysoline 50 mg every morning. 11. Sevelamer 800 mg with meals and snacks. 12. Potassium 20 mEq daily as needed. 13. Tylenol p.r.n. 14. Ropinirole 0.25 mg t.i.d. 15. TriphroCaps 1 mg daily. 16. Rocaltrol 0.25 mcg p.o. daily. 17. Torsemide 200 mg daily. 18. Artificial Tears p.r.n. 19. Colace p.r.n. 20. Zofran p.r.n. 21. MiraLAX p.r.n. 22. Artificial Tears p.r.n. 23. Aspirin 81 mg p.o. daily. CONDITION AT DISCHARGE: Good. PATIENT'S NAME: NORMA PAEZ [facility] AGE: 71 Y [address] ROOM: [place] [address] LOCATION: [facility] ADMIT DATE: 11/26/2016 Discharge Summary DISCHARGE DATE: 11/27/2016 FAMILY PHYSICIAN: Julio Cesar MD ATTENDING PHYSICIAN: Vic Gomes Greater than 30 minutes was spent in the discharge process. KAIN YEPEZ MD LM/fernando /[id number] d: 11/28/16 0112 t: 11/29/16 1830, DISCHARGE SUMMARY
--- NOTE | ~2016-11-26 | CON ---
PATIENT'S NAME: NORMA PAEZ [facility] AGE: 71 Y [address] ROOM: [place] [address] [facility] ADMIT DATE: 11/26/2016 Consultation DISCHARGE DATE: FAMILY PHYSICIAN: OLGA ELISE MD ATTENDING PHYSICIAN: FANTASMA GOMES DATE OF CONSULTATION: 11/26/2016 REFERRING PHYSICIAN: Trinity Brush REFERRING PHYSICIAN: Fantasma Gomes MD. REASON FOR CONSULTATION: End-stage renal disease, on peritoneal dialysis. Nephrology consultation for dialysis management. HISTORY OF PRESENT ILLNESS: A 71-year-old female, well known to our service, came for fistulogram today. After fistulogram procedure, the patient did complain of some chest pressure, hypotension, and tachycardia for some time, which got relieved with conservative management. The patient got admitted in the hospital for 48-hour observation. Nephrology consultation has been called for management of her peritoneal dialysis. The patient has a long-standing history of end-stage renal disease, on CPD followed by Dr. Brush. Recently seen in the clinic in the last few weeks. Doing quite well except some pitting edema in bilateral lower extremity for which we added 1 manual exchange for 2 hours before the cycler with 4.25% with dual volume of 2 L. she is otherwise quite active and doing well. She has multiple previous hospital admissions in [facility], continues to follow with her primary care provider Dr. Elise, who manages her diabetes. She claimed to be compliant with her peritoneal dialysis regimen; however, does not comply with dietary restriction including salt restriction. During my evaluation, the patient denied any chest pain, any shortness of breath, any orthopnea or PND. No fever, chills, or rigor. No nausea, vomiting, or diarrhea. PAST MEDICAL HISTORY: 1. End-stage renal disease, secondary to vascular disease versus cardiorenal syndrome. 2. Coronary artery disease, status post PCI. 3. Diastolic heart failure. 4. Status post permanent pacemaker placement. 5. Atrial fibrillation. 6. Restless legs syndrome. 7. Dyslipidemia. 8. Hypertension. 9. Obstructive sleep apnea. 10. Pulmonary hypertension. 11. History of pancreatitis. 12. Recent sacral wound. 13. Depression and anxiety. PATIENT'S NAME: NORMA PAEZ [facility] AGE: 71 Y [address] ROOM: [id number] [place], [place] [address] [facility] ADMIT DATE: 11/26/2016 Consultation DISCHARGE DATE: FAMILY PHYSICIAN: OLGA ELISE MD ATTENDING PHYSICIAN: FANTASMA GOMES PAST SURGICAL HISTORY: Peritoneal dialysis catheter placement, appendectomy, cholecystectomy, pacemaker placement, left heart catheterization, cataract surgery, tunneled dialysis catheter placement, PD catheter placement in 2016. ALLERGIES: JANUVIA AND PRADAXA. CURRENT MEDICATIONS: As per the chart. SOCIAL HISTORY: Denies any smoking, alcohol, or illicit drug use. Does not ambulate with a walker or cane. FAMILY HISTORY: Both parents from heart complication, details are not clear; however, their sad age of demise was 90s. REVIEW OF SYSTEM: Gen.: No fever. No chills or rigor HEENT: No sore throat. No sinus congestion CVS: no chest pain. No exertional shortness of breath. No leg swelling. Respiratory: No shortness of breath. No cough. No wheezing. Genitourinary: no pain with urination. No increased frequency. No nocturia Gastrointestinal: No abdominal pain. No abdominal distention. No nausea or vomiting Neurologic: No weakness. No seizures Skin: No rash. No itching Allergies: No seasonal allergy. No hay-fever Endocrine: No heat intolerance. No cold intolerance Psychiatric no sadness. No crying spells. No history of panic attack PHYSICAL EXAMINATION: VITAL SIGNS: Blood pressure now is 102/51, pulse 71, respiratory rate 18, currently afebrile, saturating at 92% on 1 L. GENERAL: Not in apparent distress. HEAD: Moist mucous membranes. Bilateral PERRLA, EOMI. NECK: No JVD, thyromegaly or lymphadenopathy. CVS: S1 and S2 normal, regular rate and rhythm. No murmur, rub, gallop. CHEST: Bilateral air entry equal. No wheeze or rales. ABDOMEN: Soft, nontender, nondistended. Bowel sounds present. EXTREMITIES: No cyanosis, clubbing, jaundice. No dependent edema. MUSCULOSKELETAL: No limitation of range of motion. SKIN: No pallor, cyanosis, icterus. HUMAN RESOURCES TECHNICIAN: Alert and oriented x3. No gross fin dings. LABORATORY STUDIES: WBC count 7.2, hemoglobin 12.1, platelet 141. Chemistry: Serum sodium 138, potassium 5.3, chloride 104, bicarbonate 22, BUN 67, creatinine 9.4, glucose 79, calcium 8.3, albumin 2.3, phosphorus 5.8.PATIENT'S NAME: NORMA PAEZ [facility] AGE: 71 Y [address] ROOM: [place] [address] LOCATION: GPCU ADMIT DATE: 11/26/2016 Consultation DISCHARGE DATE: FAMILY PHYSICIAN: OLGA ELISE MD ATTENDING PHYSICIAN: FANTASMA GOMES ASSESSMENT AND PLAN: 1. End-stage renal disease, on peritoneal dialysis as per home prescription, 4 cycles over 9 hours 30 minutes with dwell time about 1 hour 15 minutes. Dwell volume is 2300, and as mentioned in the HPI, we added a manual exchange recently with 4.25%, it has been for 2 hours before the cycler. We will continue the same PD prescription for now. The patient has some edema, which is slowly improving. As per the patient, we will continue the current prescription while inpatient. 2. Edema. PD prescription has been intensified as mentioned above. To remove the extra fluid, we will continue the same. 3. Chest pressure/hypotension/tachycardia. The patient is in the hospital for 48-hour observation. Cardiac enzyme and EKG have been ordered by the primary team and troponin will be followed every 6 hourly x2 more days. 4. Diabetes, on low-dose sliding scale insulin with a.c. and at bedtime fingerstick monitor. Defer further management to the primary. Diet, diabetic diet. Thank you for allowing me to participate in this patient's care. I will closely follow the patient's progress along with you. SHARON MANTILLA MD /modl /[id number] d: 11/26/16 2339 t: 12/03/16 1647, CONSULTATION REPORT
--- NOTE | ~2016-11-26 | OR ---
PATIENT'S NAME: NORMA PAEZ [facility] AGE: 71 Y [address] ROOM: [place] [address] LOCATION: GPCU ADMIT DATE: 11/26/2016 OR/Procedure Report DISCHARGE DATE: FAMILY PHYSICIAN: OLGA ELISE MD ATTENDING PHYSICIAN: FANTASMA TAI SURGEON: Fernando Ascencio MD LUMBER GRADER: DATE OF PROCEDURE: 11/26/2016 PREOPERATIVE DIAGNOSIS: Intravenous occlusion. POSTOPERATIVE DIAGNOSIS: Intravenous occlusion. PROCEDURE: Left arm fistulogram and fistuloplasty with central venous angioplasty. STUDENT AFFAIRS VICE PRESIDENT: earthmoving labourer staff. ANESTHESIA: MAC local. ESTIMATED BLOOD LOSS: 10 mL. OPERATIVE FINDINGS: Recanalization of the central venous portion of the fistula. DESCRIPTION OF PROCEDURE: The patient was brought to radiographer cardiac catheterization, placed supine on radiographer cardiac catheterization table, prepped and draped in a sterile manner. Preoperative time- out was performed. The patient received preoperative antibiotics. We used ultrasound guidance to gain access to the left arm brachioaxillary AV graft. We used a micropuncture kit. Using Seldinger technique, we exchanged for 4- Persian short sheath. We then gave 5000 units of heparin. We used a 0.018 wire to cross the central venous lesion. We then balloon angioplastied with 8 x 40 Cristi balloon. There was good relief of the stenosis, although not complete and we were unable to use a bigger balloon due to the fact that the pacer wires were located directly in this location. We removed the sheath and placed a single 4-0 nylon for hemostasis. We used a total of 5000 units of heparin which was then reversed with protamine. The patient tolerated the procedure well initially and then began to have severe vomiting and nausea and was transferred to the recovery room, where she was evaluated by the hospitalist service. FERNANDO ASCENCIO MD PATIENT'S NAME: NORMA PAEZ [facility] AGE: 71 Y [address] ROOM: [place] [address] LOCATION: GPCU ADMIT DATE: 11/26/2016 OR/Procedure Report DISCHARGE DATE: FAMILY PHYSICIAN: OLGA ELISE MD ATTENDING PHYSICIAN: FANTASMA TAI/modl /[id number] d: 11/26/16 2255 t: 12/02/16 1739, OPERATIVE SUMMARY
[2016-11-26 14:59] LABS: HEMOGLOBIN 12.1 g/dL (10.0-15.0); MCHC 30.2 gm/dL (32.0-36.5); MCV 107.5 fl (83.0-98.0); MPV 10.2 fl (9.4-12.4); RDW-CV 16.3 % (11.9-14.6); WBC 7.2 K/uL (4.0-11.0)
[2016-11-26 15:14] LABS: ALBUMIN 2.3 gm/dL (3.5-5.0); CALCIUM 8.3 mg/dL (8.5-10.5); PHOSPHORUS 5.8 mg/dL (2.5-4.9)
[2016-11-26 15:15] LABS: ANION GAP 17.3 (10.0-19.0); CREATININE 9.4 mg/dL (0.5-1.1); MAGNESIUM 2.3 mg/dL (1.8-2.6); POTASSIUM 5.3 mMol/L (3.7-5.1)
[2016-11-26 15:29] LABS: HEMATOCRIT 40.1 % (33.0-46.0); MCH 32.4 pg (27.0-34.0); RBC 3.73 M/uL (3.50-5.50)
[2016-11-26 15:30] LABS: PLATELET COUNT 141 K/uL (150-450)
[2016-11-26 15:32] LABS: ABSOLUTE NEUTROPHIL CT (ANC) 6.6 K/uL (1.8-7.8); BANDED NEUTROPHIL # 0.1 K/uL (0.0-0.1); BANDED NEUTROPHILS % 1 %; LYMPHOCYTE # 0.3 K/uL (0.8-4.0); LYMPHOCYTE % 4 %; MONOCYTE # 0.2 K/uL (0.0-1.0); SEGMENTED NEUTROPHIL # 6.6 K/uL (1.8-7.8); SEGMENTED NEUTROPHIL % 91 %
--- NOTE | 2016-11-26 17:25 | NUR ---
Alert and oriented X 3. Room air. SBP 110's. HR 70's. Peritoneal dialysis daily. History of sleep apnea, Pacer and A-fib. Fistula gram to left brachial. good bruit and thrill is faint. Surgical site on brachial is sutured and covered with tegaderm. Patient admitted to PCU for observation after reporting that she was having chest pain and heaviness. Patient denies any chest pains at this time. Peripheral IV to right wrist, saline locked. at bedside. Pleasant and cooperative with cares.
--- NOTE | 2016-11-26 19:09 | NUR ---
Significant Event: PLEASANT, A/O X3. UP WITH SBA. PIV TO LEFT SL'D. WEANED TO ROOM AIR. SBP 100'S-110'S. DENIES FURTHER CHEST PAIN. LEFT UPPER ARM WITH 2-3+ EDEMA, MEASURING AT 16 INCHES; STITCH PRESENT WITH TRANPARENT DRESSING COVERING, SMALL AMOUNT OF BLOODY DRAINAGE PRESENT. DIALYSIS AWARE OF PD ORDER. Follow up: DC HOME TOMORROW?
[2016-11-27 04:52] LABS: BASOPHIL % 0.5 %; EOSINOPHIL # 0.3 K/uL (0.0-0.5); EOSINOPHIL % 4.4 %; HEMATOCRIT 35.1 % (33.0-46.0); IMMATURE GRANULOCYTE % 0.5 %; LYMPHOCYTE # 0.7 K/uL (0.8-4.0); LYMPHOCYTE % 11.4 %; MCH 32.8 pg (27.0-34.0); MCHC 31.3 gm/dL (32.0-36.5); MCV 104.8 fl (83.0-98.0); MONOCYTE # 0.7 K/uL (0.0-1.0); MONOCYTE % 11.9 %; MPV 10.9 fl (9.4-12.4); NEUTROPHIL # (ANC) 4.3 K/uL (1.8-7.8); NEUTROPHIL % 71.3 %; NRBC % 0.3 /100WBC (0-0.00); PLATELET COUNT 150 K/uL (150-450); RBC 3.35 M/uL (3.50-5.50); RDW-CV 16.2 % (11.9-14.6)
--- NOTE | 2016-11-27 04:57 | NUR ---
Significant Event: Patient alert and oriented x3. Vital signs stable. Continues paced in A-Fib. On RA-1L O2 for sleep apnea. No complaints of pain. No chest pain or heartburn. Left brachial fistula with bruit and thrill. Sutured site covered with tegaderm. Small amount of bloody drainage present. Peritoneal dialysis continues. Home dose Nystatin tabs continued this shift per patient request. Does not make urine. Up with 1 assist and cane. Right hand PIV saline locked. Calm and cooperative with all cares. Follow up: Will continue to monitor per plan of care.
[2016-11-27 05:23] LABS: ALBUMIN 2.3 gm/dL (3.5-5.0); ANION GAP 15.9 (10.0-19.0); CALCIUM 8.4 mg/dL (8.5-10.5); MAGNESIUM 2.4 mg/dL (1.8-2.6); PHOSPHORUS 5.8 mg/dL (2.5-4.9); POTASSIUM 4.9 mMol/L (3.7-5.1)
[2016-11-27 05:24] LABS: CREATININE 9.3 mg/dL (0.5-1.1)
[2016-11-27 08:56] LABS: PERITONEAL FLUID TURBIDITY CLEAR (CLEAR)
[2016-11-27 11:03] LABS: % PERITONEAL FLUID MONO/MACRO 66 % (0-0); % PERITONEAL FLUID NEUT 20 % (0-25)
--- NOTE | 2016-11-27 17:32 | NUR ---
Significant Event: A/OX3, VSS ON RA. NO PAIN. LEFT UPPER SURGICAL SITE HAS SUTURE INTACT, TEGADERM COVER TO SITE, SCANT OLD DRAINAGE. MEASUREMENTS TO LEFT UPPER ARM, EDEMA IS GOING DOWN. PT. GETS UP SBA WITH CANE, WALKED IN HALLS WITH TODAY. SLIV TO RIGHT HAND. WAITING FOR LABS RESULTS TO COME BACK D/T SLIGHT ELEVATION IN TN-I, IF DOWN THEN WILL D/C TO HOME TONIGHT. APPLIED COMPRESSION STOCKINGS. PERITONEAL DIALYSIS CATHETER INTACT. RIGHT ARM FISTULA HAS B/T. Follow up: CONTINUE WITH POC.
[2016-11-27] MEDS ORDERED: BAYER CHILD81 MG PO (18:32)
--- NOTE | 2016-11-27 20:20 | NUR ---
Pt discharged to home with at 1939. Pt sent with all belongings. IV/monitor discontinued prior to discharge. Discharged with asa education, fistula gram education, scrips and MD call cards. Pt instructed she needs to make f/u appointments on tuesday. Pt understood.
== END 2016-11-27 19:40 | disposition disaster alternative care site (69) ==
LOC: GPOC 07:59 → GPCU 07:59 → GPOC 08:00 → GPCU 12:12 → GPOC 12:13 → GPCU 11-27 19:40
PROVIDERS: Internal Medicine; Internal Medicine Nephrology; Surgery Vascular Surgery; ADMIT Internal Medicine
PROC: 05783ZZ Dilation of Left Axillary Vein, Percutaneous Approach (ICD-10-PCS; principal; 2016-11-26)
DX: T82.858A Stenosis of other vascular prosthetic devices, implants and grafts, initial encounter (principal); R07.89 Other chest pain; R79.89 Other specified abnormal findings of blood chemistry; I95.81 Postprocedural hypotension; I13.2 Hypertensive heart and chronic kidney disease with heart failure and with stage 5 chronic kidney disease, or end stage renal disease; E11.22 Type 2 diabetes mellitus with diabetic chronic kidney disease; N18.6 End stage renal disease; I50.32 Chronic diastolic (congestive) heart failure; I48.2 Chronic atrial fibrillation; I25.10 Atherosclerotic heart disease of native coronary artery without angina pectoris; I27.2 Other secondary pulmonary hypertension; G47.33 Obstructive sleep apnea (adult) (pediatric); F41.8 Other specified anxiety disorders; Z95.0 Presence of cardiac pacemaker; Z98.61 Coronary angioplasty status; Z88.8 Allergy status to other drugs, medicaments and biological substances; Z79.899 Other long term (current) drug therapy; Z90.49 Acquired absence of other specified parts of digestive tract; Y83.8 Other surgical procedures as the cause of abnormal reaction of the patient, or of later complication, without mention of misadventure at the time of the procedure; Z98.890 Other specified postprocedural states
CPT/HCPCS: C1725; C1769; J0690; J1644; J2001; J2405; J2720; J7030